=== PATIENT | male | born 1945 | race Caucasian/White ===

== ENCOUNTER 2020-09-24 13:20 | Emergency (ER) | payer MEDICARE ==
[~2020-09-24] VITALS: Ht 185.4 cm; Wt 97.5 kg
[~2020-09-24 13:20] MED LIST: ALEVE220 MG PO; ASPIRIN325 MG PO; ATENOLOL50 MG PO; BUPROPION XL150 MG PO; LANSOPRAZOLE15 MG PO; LEVAQUIN500 MG PO; METFORMIN HCL500 MG PO; PERCOCET 10-321 EACH PO; PERCOCET 5-3251 EACH PO
--- NOTE | 2020-09-24 17:14 | EKG ---
[facility] [address] [facility] [address] [place] [address] Signed Normal sinus rhythm Right bundle branch block Left anterior fascicular block Bifascicular block Anterolateral infarct , age undetermined Abnormal ECG No previous ECGs available Confirmed by MARLYS ARGUETA MD ([id number]) on 09/24/2020 5:14:36 PM Electronically Signed By: MARLYS ARGUETA MD 09/24/20 1714 PATIENT NAME: TIEN ESPINO CRISTY Electrocardiogram DATE OF : 47 PHYSICIAN: MARLYS ARGUETA MD REPORT #: [id number] REPORT IS CONFIDENTIAL AND NOT TO BE RELEASED WITHOUT AUTHORIZATION
== END 2020-09-24 15:08 | disposition left against medical advice (07) ==
LOC: ED 13:20
DX: U07.1 COVID-19 (principal); I10 Essential (primary) hypertension; K21.9 Gastro-esophageal reflux disease without esophagitis; F17.200 Nicotine dependence, unspecified, uncomplicated; Z79.899 Other long term (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; Z79.82 Long term (current) 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; Z79.84 Long term (current) use of oral hypoglycemic drugs
CPT/HCPCS: 71045; 80053; 83605; 84484; 85025; 93005; 93010; 99285-25; C9803; U0003

== ENCOUNTER 2023-03-21 09:31 | Emergency (ER) | payer MEDICARE, OTHER ==
[~2023-03-21] VITALS: Ht 185.4 cm; Wt 97.5 kg
[2023-03-21] MEDS ORDERED: PANTOPRAZOLE SO20 MG PO (09:54)
[2023-03-21 10:00] LABS: HEMATOCRIT 49.3 % (35.0-50.0); HEMOGLOBIN 16.6 g/dL (12.0-18.0); MCH 32.1 (27-36); MCHC 33.8 g/dl (30-36); PLATELET COUNT 263 K/uL (140-440); RBC 5.19 M/ul (4.3-5.7); RDW 12.9 (10.5-15.0)
[2023-03-21 10:21] LABS: ALBUMIN 2.8 g/dL (3.4-5.0); ALBUMIN/GLOBULIN RATIO 0.74 (1.1-2.4); ANION GAP 14.9 (7-21); BILIRUBIN, TOTAL 1.3 ng/dL (0.2-1.0); BUN/CREATININE RATIO 26.31 (6.0-28.6); CALCIUM 9.8 mg/dL (8.5-10.1); CREATININE, SERUM 1.14 mg/dL (0.70-1.30); POTASSIUM 3.9 mmol/L (3.5-5.1); PROTEIN, TOTAL 6.6 g/dL (6.4-8.2)
[2023-03-21 10:28] LABS: LYMPHOCYTES, MANUAL DIFF 12; MONOCYTES, MANUAL DIFF 4; NEUTROPHILS, MANUAL DIFF 84
[2023-03-21 11:14] LABS: BILIRUBIN, URINE NEGATIVE (negative); BLOOD/HGB, URINE LARGE (Negative); KETONE, URINE NEGATIVE (Negative); LEUK ESTERASE, URINE NEGATIVE (negative); NITRITE, URINE NEGATIVE (negative); PH, URINE 5.5 (5-7)
[2023-03-21 11:30] LABS: RED BLOOD CELLS, URINE >50 /hpf (0-5)
[2023-03-21 11:32] LABS: EPITHELIAL CELLS, URINE SQUAMOUS 1+ /lpf (0-1+); REFLEX CULTURE, URINE No (No)
[2023-03-21] MEDS ORDERED: CEFUROXIME500 MG PO (16:46)
[2023-03-21] MEDS ORDERED: FLOMAX0.4 MG PO (16:46)
[2023-03-21 17:20] VITALS: BP 129/72
--- NOTE | 2023-03-22 17:56 | EKG ---
[facility] [address] [place] [address] Signed Atrial fibrillation with a competing junctional pacemaker Right bundle branch block Left anterior fascicular block Bifascicular block Cannot rule out Anterior infarct (cited on or before 24-SEP-2020) Abnormal ECG When compared with ECG of 24-SEP-2020 13:54, Atrial fibrillation has replaced Sinus rhythm Questionable change in initial forces of Anterior leads Confirmed by ANDRES KOLB MD ([id number]) on 03/22/2023 5:55:50 PM Electronically Signed By: ANDRES KOLB 03/22/23 1756 PATIENT NAME: TIEN ESPINO Electrocardiogram DATE OF : 47 PHYSICIAN: ANDRES KOLB REPORT #: [id number] REPORT IS CONFIDENTIAL AND NOT TO BE RELEASED WITHOUT AUTHORIZATION
== END 2023-03-21 17:20 | disposition home or self-care (01) ==
LOC: ED 09:31
PROVIDERS: Emergency Medicine
DX: N32.0 Bladder-neck obstruction (principal); I71.9 Aortic aneurysm of unspecified site, without rupture; I48.20 Chronic atrial fibrillation, unspecified; Z20.822 Contact with and (suspected) exposure to COVID-19; I10 Essential (primary) hypertension; K21.9 Gastro-esophageal reflux disease without esophagitis; M19.90 Unspecified osteoarthritis, unspecified site; F17.200 Nicotine dependence, unspecified, uncomplicated; Z91.030 Bee allergy status; Z79.899 Other long term (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; Z79.82 Long term (current) 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; Z79.84 Long term (current) use of oral hypoglycemic drugs
CPT/HCPCS: 36415; 51702; 51798; 71260; 74177; 80053; 81001; 85025; 93005; 93010; 99285-25; C9803; J0696; J7030; Q9967; U0002

== ENCOUNTER 2023-03-29 21:10 | Emergency (ER) | payer MEDICARE, OTHER ==
[~2023-03-29] VITALS: Ht 185.4 cm; Wt 91.0 kg
[~2023-03-29 21:10] MED LIST changes: +CEFUROXIME500 MG PO; +FLOMAX0.4 MG PO; +PANTOPRAZOLE SO20 MG PO
--- OUTSIDE RECORDS SUMMARY | 2023-03-29 21:43 | XMS ---
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 Aanya has no Care Guidelines for this patient. Karina VISIT COUNT (12 MO.) 2 [facility] TOTAL 2 NOTE: Visits indicate total known visits. 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
[2023-03-29 22:02] LABS: BILIRUBIN, URINE NEGATIVE (negative); BLOOD/HGB, URINE LARGE (Negative); KETONE, URINE NEGATIVE (Negative); LEUK ESTERASE, URINE NEGATIVE (negative); NITRITE, URINE NEGATIVE (negative)
[2023-03-29 22:09] LABS: EPITHELIAL CELLS, URINE SQUAMOUS 1+ /lpf (0-1+)
[2023-03-29 22:11] LABS: BACTERIA, URINE RARE /hpf (negative); CASTS, URINE NONE SEEN \\lpf; CRYSTALS, URINE NONE SEEN (0-1+); RED BLOOD CELLS, URINE >50 /hpf (0-5); REFLEX CULTURE, URINE No (No)
[2023-03-29 22:41] VITALS: BP 124/71
== END 2023-03-29 22:42 | disposition home or self-care (01) ==
LOC: ED 21:10
PROVIDERS: Family Medicine
DX: N40.1 Benign prostatic hyperplasia with lower urinary tract symptoms (principal); R33.8 Other retention of urine; I10 Essential (primary) hypertension; K21.9 Gastro-esophageal reflux disease without esophagitis; M19.90 Unspecified osteoarthritis, unspecified site; E11.9 Type 2 diabetes mellitus without complications; F17.200 Nicotine dependence, unspecified, uncomplicated; Z91.030 Bee allergy status; Z79.899 Other long term (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; Z79.82 Long term (current) 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; Z79.84 Long term (current) use of oral hypoglycemic drugs
CPT/HCPCS: 51702; 81001; 99283-25

== ENCOUNTER 2023-04-30 19:46 | Emergency (ER) | payer MEDICARE, OTHER ==
[~2023-04-30] VITALS: Ht 185.4 cm; Wt 89.4 kg
[2023-04-30 22:06] LABS: BILIRUBIN, URINE POSITIVE (negative); BLOOD/HGB, URINE LARGE (Negative); KETONE, URINE SMALL (Negative); LEUK ESTERASE, URINE MODERATE (negative); NITRITE, URINE POSITIVE (negative)
[2023-04-30 22:11] LABS: CRYSTALS, URINE NONE SEEN (0-1+); EPITHELIAL CELLS, URINE SQUAMOUS 1+ /lpf (0-1+); RED BLOOD CELLS, URINE >50 /hpf (0-5); WHITE BLOOD CELLS, URINE >50 /HPF (0-5)
[2023-04-30 22:12] LABS: BACTERIA, URINE 1+ /hpf (negative); CASTS, URINE NONE SEEN \\lpf; REFLEX CULTURE, URINE Yes (No)
[2023-04-30] MEDS ORDERED: MACROBID 100 M100 MG PO (22:23)
[2023-04-30 22:51] VITALS: BP 133/65
== END 2023-04-30 22:55 | disposition home or self-care (01) ==
LOC: ED 19:46
PROVIDERS: Family Medicine
DX: N39.0 Urinary tract infection, site not specified (principal); T83.011A Breakdown (mechanical) of indwelling urethral catheter, initial encounter; I10 Essential (primary) hypertension; E11.9 Type 2 diabetes mellitus without complications; F17.200 Nicotine dependence, unspecified, uncomplicated; Z91.030 Bee allergy status; Z79.899 Other long term (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; Z79.82 Long term (current) 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
CPT/HCPCS: 81001

== ENCOUNTER 2023-06-22 17:00 | Emergency (ER) | payer OTHER ==
[~2023-06-22] VITALS: Ht 185.4 cm; Wt 89.7 kg
[~2023-06-22 17:00] MED LIST changes: +MACROBID 100 M100 MG PO
[2023-06-22] MEDS ORDERED: SODIUM CHLORIDE 0.9% 1,000 ML IV ONE (17:15)
[2023-06-22] MEDS ORDERED: LIDOCAINE 2% VISCOUS 6 ML SYR TOP ONE (17:30)
[2023-06-22 17:39] LABS: BASOPHILS 0.2 % (0-2); HEMATOCRIT 46.9 % (35.0-50.0); LYMPHOCYTES 3.9 % (24-44); MCH 32.2 (27-36); MCHC 34.1 g/dl (30-36); MCV 94.5 fl (81-99); MONOCYTES 9.4 % (0-12); NEUTROPHILS 86.5 % (39-80); PLATELET COUNT 167 K/uL (140-440); RBC 4.97 M/ul (4.3-5.7); RDW 13.6 (10.5-15.0)
[2023-06-22 17:57] LABS: ALBUMIN 3.2 g/dL (3.4-5.0); ALBUMIN/GLOBULIN RATIO 0.89 (1.1-2.4); BUN/CREATININE RATIO 14.65 (6.0-28.6); CALCIUM 9.5 mg/dL (8.5-10.1); CREATININE, SERUM 1.16 mg/dL (0.70-1.30); PROTEIN, TOTAL 6.8 g/dL (6.4-8.2)
[2023-06-22 18:15] LABS: BILIRUBIN, URINE POSITIVE (negative); BLOOD/HGB, URINE LARGE (Negative); KETONE, URINE NEGATIVE (Negative); LEUK ESTERASE, URINE MODERATE (negative); NITRITE, URINE POSITIVE (negative); PH, URINE 6.5 (5-7)
[2023-06-22 18:19] LABS: INFLUENZA B NAA NEGATIVE (NEGATIVE); RESPIRATORY SYNCYTIAL VIR NAA NEGATIVE (NEGATIVE)
[2023-06-22 18:22] LABS: BACTERIA, URINE RARE /hpf (negative); CASTS, URINE NONE SEEN \\lpf; CRYSTALS, URINE NONE SEEN (0-1+); EPITHELIAL CELLS, URINE 0 /lpf (0-1+); RED BLOOD CELLS, URINE >50 /hpf (0-5); REFLEX CULTURE, URINE No (No)
[2023-06-22 18:23] LABS: COLLECTION TYPE, URINE CATH
[2023-06-22] MEDS ORDERED: FINASTERIDE5 MG PO (18:28)
[2023-06-22] MEDS ORDERED: VITAMIN D3125 MC1 PO (18:29)
[2023-06-22] MEDS ORDERED: PYRIDIUM100 MG PO (18:38)
[2023-06-22] MEDS ORDERED: CEFTRIAXONE/SODIUM CHLORIDE 2 GM/100 ML PIGGYBACK IV ONE (19:15)
[2023-06-22] MEDS ORDERED: CEFDINIR300 MG PO (19:18)
[2023-06-22 20:07] VITALS: BP 122/71
--- NOTE | 2023-06-24 18:46 | EKG ---
[facility] [address] [facility] [place] [address] Signed Normal sinus rhythm with sinus arrhythmia Right bundle branch block Left axis deviation Anterior infarct, present on or before 09/24/2020 Confirmed by Devante Yan M.D. ([id number]) on 06/24/2023 6:46:01 PM Electronically Signed By: DEVANTE YAN 06/24/23 1846 PATIENT NAME: CHRISTINE ESPINOMIKAL MUNIZ Electrocardiogram DATE OF : 47 PHYSICIAN: DEVANTE YAN REPORT #: [id number] REPORT IS CONFIDENTIAL AND NOT TO BE RELEASED WITHOUT AUTHORIZATION
== END 2023-06-22 20:07 | disposition home or self-care (01) ==
LOC: ED 17:00
PROVIDERS: Emergency Medicine
DX: N39.0 Urinary tract infection, site not specified (principal); I10 Essential (primary) hypertension; E11.9 Type 2 diabetes mellitus without complications; K21.9 Gastro-esophageal reflux disease without esophagitis; F41.9 Anxiety disorder, unspecified; F17.200 Nicotine dependence, unspecified, uncomplicated; Z20.822 Contact with and (suspected) exposure to COVID-19; Z79.899 Other long term (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; Z79.82 Long term (current) 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; Z79.84 Long term (current) use of oral hypoglycemic drugs; Z91.030 Bee allergy status; Z96.0 Presence of urogenital implants
CPT/HCPCS: 36415; 51702; 80053; 81001; 84484; 85025; 87088; 87502; 93005; 93010; 99285-25; J0696; J7030; U0002

== ENCOUNTER 2023-09-20 13:45 | Emergency (ER) | payer OTHER, MEDICARE ==
[~2023-09-20] VITALS: Ht 185.4 cm; Wt 84.9 kg
[~2023-09-20 13:45] MED LIST changes: +CEFDINIR300 MG PO; +FINASTERIDE5 MG PO; +PYRIDIUM100 MG PO; +VITAMIN D3125 MC1 PO
[2023-09-20 15:25] LABS: BILIRUBIN, URINE NEGATIVE (negative); BLOOD/HGB, URINE SMALL (Negative); KETONE, URINE NEGATIVE (Negative); LEUK ESTERASE, URINE SMALL (negative); NITRITE, URINE POSITIVE (negative); PH, URINE 6.5 (5-7)
[2023-09-20 15:31] LABS: BASOPHILS 0.4 % (0-2); EOSINOPHILS 2.1 % (0-6); HEMOGLOBIN 14.1 g/dL (12.0-18.0); MCH 31.5 (27-36); MCHC 33.6 g/dl (30-36); MCV 93.8 fl (81-99); MONOCYTES 7.9 % (0-12); NEUTROPHILS 65.6 % (39-80); PLATELET COUNT 226 K/uL (140-440); RBC 4.47 M/ul (4.3-5.7); RDW 14.1 (10.5-15.0)
[2023-09-20 15:34] LABS: EPITHELIAL CELLS, URINE NONE SEEN /lpf (0-1+)
[2023-09-20 15:35] LABS: BACTERIA, URINE 1+ /hpf (negative); CASTS, URINE NONE SEEN \\lpf; COLLECTION TYPE, URINE CLEAN CATCH; CRYSTALS, URINE CALCIUM OXALATE 3+ (0-1+); REFLEX CULTURE, URINE Yes (No)
[2023-09-20 15:45] LABS: ALBUMIN 3.1 g/dL (3.4-5.0); ALBUMIN/GLOBULIN RATIO 1.03 (1.1-2.4); ANION GAP 11.9 (7-21); BILIRUBIN, TOTAL 0.3 ng/dL (0.2-1.0); BUN/CREATININE RATIO 14.85 (6.0-28.6); CALCIUM 9.1 mg/dL (8.5-10.1); CREATININE, SERUM 1.01 mg/dL (0.70-1.30); POTASSIUM 3.9 mmol/L (3.5-5.1); PROTEIN, TOTAL 6.1 g/dL (6.4-8.2)
[2023-09-20 16:25] VITALS: BP 127/87
== END 2023-09-20 16:23 | disposition home or self-care (01) ==
LOC: ED 13:45
PROVIDERS: Emergency Medicine
DX: N48.89 Other specified disorders of penis (principal); R10.30 Lower abdominal pain, unspecified; Z96.0 Presence of urogenital implants; I10 Essential (primary) hypertension; K21.9 Gastro-esophageal reflux disease without esophagitis; E11.9 Type 2 diabetes mellitus without complications; M19.90 Unspecified osteoarthritis, unspecified site; Z91.030 Bee allergy status; Z79.899 Other long term (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; Z79.82 Long term (current) 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; Z79.84 Long term (current) use of oral hypoglycemic drugs
CPT/HCPCS: 36415; 80053; 81001; 85025; 99283

== ENCOUNTER 2023-11-22 10:09 | Emergency (ER) | payer OTHER ==
[~2023-11-22] VITALS: Ht 185.4 cm; Wt 84.0 kg
[2023-11-22 10:28] LABS: BASOPHILS 0.6 % (0-2); EOSINOPHILS 7.9 % (0-6); HEMATOCRIT 41.2 % (35.0-50.0); HEMOGLOBIN 14.1 g/dL (12.0-18.0); LYMPHOCYTES 9.6 % (24-44); MCH 31.8 (27-36); MCHC 34.3 g/dl (30-36); MCV 92.9 fl (81-99); MONOCYTES 9.1 % (0-12); NEUTROPHILS 72.8 % (39-80); PLATELET COUNT 235 K/uL (140-440); RBC 4.44 M/ul (4.3-5.7); RDW 12.7 (10.5-15.0)
[2023-11-22 10:47] LABS: ALBUMIN 2.9 g/dL (3.4-5.0); ALBUMIN/GLOBULIN RATIO 0.85 (1.1-2.4); ALCOHOL, MEDICAL <3 ng/dL (<3); ALKALINE PHOSPHATASE 43 U/L (46-116); ALT (SGPT) 10 U/L (14-59); ANION GAP 13.2 (7-21); AST (SGOT) 7 U/L (15-37); BILIRUBIN, TOTAL 0.7 ng/dL (0.2-1.0); CALCIUM 9.4 mg/dL (8.5-10.1); CARBON DIOXIDE 26 mmol/L (21-32); CHLORIDE 103 mmol/L (98-107); CREATININE, SERUM 0.97 mg/dL (0.70-1.30); GLOMERULAR FILTRATION RATE,EST 80 mL/min (>60); POTASSIUM 4.2 mmol/L (3.5-5.1); PROTEIN, TOTAL 6.3 g/dL (6.4-8.2); UREA NITROGEN 13 mg/dL (7-18)
[2023-11-22 10:49] LABS: MAGNESIUM 1.9 mg/dL (1.8-2.4)
[2023-11-22 10:58] LABS: BILIRUBIN, URINE POSITIVE (negative); BLOOD/HGB, URINE SMALL (Negative); KETONE, URINE TRACE (Negative); LEUK ESTERASE, URINE LARGE (negative); NITRITE, URINE POSITIVE (negative)
[2023-11-22 11:15] LABS: BACTERIA, URINE 1+ /hpf (negative); CASTS, URINE NONE SEEN \\lpf; COLLECTION TYPE, URINE CLEAN CATCH; CRYSTALS, URINE AMORPHOUS PHOSPH 1+ (0-1+); EPITHELIAL CELLS, URINE SQUAMOUS 1+ /lpf (0-1+); REFLEX CULTURE, URINE Yes (No); WHITE BLOOD CELLS, URINE 41-50 /HPF (0-5)
[2023-11-22 11:17] LABS: AMPHETAMINES, URINE NEGATIVE (NEGATIVE); BENZODIAZEPINE, URINE NEGATIVE (NEGATIVE); BUPRENORPHINE, URINE NEGATIVE (NEGATIVE); COCAINE, URINE NEGATIVE (NEGATIVE); ECSTASY, URINE NEGATIVE (NEGATIVE); METHADONE, URINE NEGATIVE (NEGATIVE)
[2023-11-22 11:45] LABS: BARBITURATES, URINE NEGATIVE (NEGATIVE); CANNABINOID, URINE NEGATIVE (NEGATIVE); FENTANYL, URINE NEGATIVE (NEGATIVE); OPIATES, URINE NEGATIVE (NEGATIVE); OXYCODONE, URINE NEGATIVE (NEGATIVE); PHENCYCLIDINE, URINE NEGATIVE (NEGATIVE)
[2023-11-22 14:20] VITALS: BP 102/70
--- NOTE | 2023-11-24 23:12 | EKG ---
[facility] [address] [place] [address] Signed Sinus bradycardia Right bundle branch block Left anterior fascicular block Bifascicular block Possible Anterolateral infarct (cited on or before 22-NOV-2023) Abnormal ECG When compared with ECG of 22-JUN-2023 17:30, Vent. rate has decreased BY 37 BPM Serial changes of Anterior infarct present Confirmed by Ashley Mane MD () on 11/24/2023 11:12:32 PM Electronically Signed By: ASHLEY MANE MD 11/24/23 2312 PATIENT NAME: TIEN ESPINO Electrocardiogram DATE OF : 47 PHYSICIAN: ASHLEY MANE MD REPORT #: [id number] REPORT IS CONFIDENTIAL AND NOT TO BE RELEASED WITHOUT AUTHORIZATION
[2023-12-10] MEDS ORDERED: VITAMIN D350 MCG PO (11:22)
[2023-12-10] MEDS ORDERED: CIPRO500 MG PO (12:09)
[2023-12-10] MEDS ORDERED: VIAGRA100 MG PO (12:10)
[2023-12-10] MEDS ORDERED: LO-DOSE ASPIRIN81 MG PO (12:11)
[2023-12-10] MEDS ORDERED: FLOMAX0.4 MG PO (12:11)
[2023-12-10] MEDS ORDERED: OXYBUTYNIN CHLO10 MG PO (12:11)
[2023-12-10] MEDS ORDERED: PHENAZOPYRIDIN100 MG PO (12:12)
[2023-12-10] MEDS ORDERED: PANTOPRAZOLE SO40 MG PO (12:12)
[2023-12-10] MEDS ORDERED: METFORMIN HCL500 M2 PO (12:13)
[2023-12-10] MEDS ORDERED: PROSCAR5 MG PO (12:14)
== END 2023-11-22 14:20 | disposition home or self-care (01) ==
LOC: ED 10:09
PROVIDERS: Emergency Medicine
DX: R55 Syncope and collapse (principal); I10 Essential (primary) hypertension; K21.9 Gastro-esophageal reflux disease without esophagitis; E11.9 Type 2 diabetes mellitus without complications; I48.91 Unspecified atrial fibrillation; F17.200 Nicotine dependence, unspecified, uncomplicated; Z79.84 Long term (current) use of oral hypoglycemic drugs; Z79.82 Long term (current) 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; Z79.899 Other long term (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; Z91.038 Other insect allergy status
CPT/HCPCS: 36415; 70450; 71045; 72125; 80053; 80307; 81001; 83735; 84484; 85025; 87088; 87186; 99285; G0480

== ENCOUNTER 2023-11-27 12:23 | Inpatient (IN) | payer OTHER, MEDICARE ==
[~2023-11-27] VITALS: Ht 185.4 cm; Wt 83.0 kg
--- OUTSIDE RECORDS SUMMARY | 2023-11-27 12:30 | XMS ---
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 Anaya has no Care Guidelines for this patient. Karina [facility] MO[facility] NOTE: Visits indicate total known visits. ED/C VISIT TRACKING (12 MO.) 11/27/2023 12:23 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 - halfway (current) use of oral hypoglycemic drugs - Nicotine dependence, unspecified, uncomplicated - Other insect allergy status - Other care home (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 - Syncope and collapse - Type 2 diabetes mellitus without complications - Unspecified atrial fibrillation 09/20/2023 13:47 [facility] [place] TYPE: Emergency COMPLAINT: - CATHETER ISSUE DIAGNOSES: - Bee allergy status - Essential (primary) hypertension - Gastro-esophageal reflux disease without esophagitis - 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 - halfway (current) use of oral hypoglycemic drugs - Lower abdominal pain, unspecified - Other ferry terminal agent (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 - Other specified disorders of penis - Presence of urogenital implants - Type 2 diabetes mellitus without complications - Unspecified osteoarthritis, unspecified site 06/22/2023 17:01 [facility] [place] TYPE: Emergency COMPLAINT: - WEAKNESS DIAGNOSES: - Anxiety disorder, unspecified - Bee allergy status - Contact with and (suspected) exposure to COVID-19 - Essential (primary) hypertension - Gastro-esophageal reflux disease without esophagitis - halfway (current) 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 - 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 - Nicotine dependence, unspecified, uncomplicated - Other ferry terminal agent (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 - Presence of urogenital implants - Type 2 diabetes mellitus without complications - Urinary tract infection, site not specified - Weakness 04/30/2023 19:47 [facility] [place] TYPE: Emergency COMPLAINT: - GENTAL PAIN DIAGNOSES: - Bee allergy status - Breakdown (mechanical) of indwelling urethral catheter, initial encounter - Essential (primary) hypertension - halfway (current) 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 - Nicotine dependence, unspecified, uncomplicated - Other ferry terminal agent (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 - Type 2 diabetes mellitus without complications - Urethral disorder, unspecified - Urinary tract infection, site not specified 03/29/2023 21:11 [facility] [place] TYPE: Emergency COMPLAINT: - URINE PROBLEM DIAGNOSES: - Bee allergy status - Benign prostatic hyperplasia with lower urinary tract symptoms - Essential (primary) hypertension - Gastro-esophageal reflux disease without esophagitis - 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 - halfway (current) use of oral hypoglycemic drugs - Nicotine dependence, unspecified, uncomplicated - Other ferry terminal agent (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 - Other retention of urine - Type 2 diabetes mellitus without complications - Unspecified osteoarthritis, unspecified site 03/21/2023 09:33 [facility] [place] TYPE: Emergency COMPLAINT: - POSS UTI, WEAKNESS DIAGNOSES: - Aortic aneurysm of unspecified site, without rupture - Bee allergy status - Bladder-neck obstruction - Chronic atrial fibrillation, unspecified - Contact with and (suspected) exposure to COVID-19 - Dysuria - Essential (primary) hypertension - Gastro-esophageal reflux disease without esophagitis - 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
[2023-11-27] MEDS ORDERED: NITROFURANTOIN100 M1 PO (12:50)
[2023-11-27 12:54] LABS: BASOPHILS 0.8 % (0-2); EOSINOPHILS 2.7 % (0-6); HEMATOCRIT 42.5 % (35.0-50.0); HEMOGLOBIN 14.5 g/dL (12.0-18.0); LYMPHOCYTES 18.5 % (24-44); MCH 31.3 (27-36); MCHC 34.1 g/dl (30-36); MCV 91.7 fl (81-99); MONOCYTES 8.4 % (0-12); NEUTROPHILS 69.6 % (39-80); PLATELET COUNT 281 K/uL (140-440); RBC 4.64 M/ul (4.3-5.7); RDW 12.6 (10.5-15.0)
[2023-11-27] MEDS ORDERED: SODIUM CHLORIDE 0.9% 1,000 ML IV PRN (13:00)
[2023-11-27 13:13] LABS: ALBUMIN 3.1 g/dL (3.4-5.0); ALBUMIN/GLOBULIN RATIO 0.91 (1.1-2.4); ANION GAP 12.9 (7-21); BILIRUBIN, TOTAL 0.4 ng/dL (0.2-1.0); BUN/CREATININE RATIO 14.73 (6.0-28.6); CALCIUM 9.5 mg/dL (8.5-10.1); CREATININE, SERUM 0.95 mg/dL (0.70-1.30); MAGNESIUM 1.8 mg/dL (1.8-2.4); POTASSIUM 3.9 mmol/L (3.5-5.1); PROTEIN, TOTAL 6.5 g/dL (6.4-8.2)
[2023-11-27 13:35] LABS: BILIRUBIN, URINE NEGATIVE (negative); BLOOD/HGB, URINE SMALL (Negative); KETONE, URINE NEGATIVE (Negative); LEUK ESTERASE, URINE LARGE (negative)
[2023-11-27] MEDS ORDERED: MEROPENEM 1,000 MG in SODIUM CHLORIDE 0.9% 100 ML IV ONE (13:45)
[2023-11-27 13:55] LABS: WHITE BLOOD CELLS, URINE 21-40 /HPF (0-5)
[2023-11-27 13:56] LABS: BACTERIA, URINE 1+ /hpf (negative); CASTS, URINE NONE SEEN \\lpf; COLLECTION TYPE, URINE CLEAN CATCH; CRYSTALS, URINE NONE SEEN (0-1+); EPITHELIAL CELLS, URINE SQUAMOUS 1+ /lpf (0-1+); REFLEX CULTURE, URINE Yes (No)
[2023-11-27] MEDS ORDERED: LIDOCAINE 2% VISCOUS 6 ML SYR TOP ONE (14:00)
[2023-11-27] MEDS ORDERED: NICOTINE 14 MG/24 HR 1 EA TDSY TD ONE (15:00)
[2023-11-27] MEDS ORDERED: PHARMACY RENAL DOSE ADJUSTMENT 1 DOSE MISC PO SCH (15:44)
[2023-11-27] MEDS ORDERED: DEXAMETHASONE SOD PHOS 4 MG/ML VIAL ONE (16:26)
[2023-11-27] MEDS ORDERED: propofoL 200 MG/20 ML VIAL ONE (16:26)
[2023-11-27] MEDS ORDERED: KETOROLAC TROMETHAMINE 30 MG/ML VIAL ONE (16:26)
[2023-11-27] MEDS ORDERED: fentaNYL citrate 100 MCG/2 ML VIAL ONE (16:26)
[2023-11-27] MEDS ORDERED: METOCLOPRAMIDE HCL 10 MG/2 ML SDV ONE (16:26)
[2023-11-27] MEDS ORDERED: FAMOTIDINE 20 MG/ 2 ML VIAL ONE (16:26)
[2023-11-27] MEDS ORDERED: LACTATED RINGER'S 1,000 ML IV ONE (16:26)
[2023-11-27] MEDS ORDERED: MIDAZOLAM HCL 2 MG/2 ML VIAL ONE (16:26)
[2023-11-27] MEDS ORDERED: ondansetron HCL 4 MG/2 ML VIAL ONE (16:26)
[2023-11-27] MEDS ORDERED: iopamidoL 30 ML VIAL ONE (16:50)
[2023-11-27] MEDS ORDERED: IBLOOD GLUCOSE TEST STRIP 1 EA TEST VI PRN (17:30)
[2023-11-27] MEDS ORDERED: NALOXONE HCL 0.4 MG SYR IV PRN (17:30)
[2023-11-27] MEDS ORDERED: MEPERIDINE HCL 25 MG/1 ML VIAL IV PRN (17:30)
[2023-11-27] MEDS ORDERED: droPERidol 5 MG/2 ML VIAL IV PRN (17:30)
[2023-11-27] MEDS ORDERED: fentaNYL citrate 50 MCG/ML SDV IV PRN (17:30)
[2023-11-27] MEDS ORDERED: PROCHLORPERAZINE EDISYLATE 10 MG/2 ML VIAL IV PRN (17:30)
[2023-11-27] MEDS ORDERED: ondansetron HCL 4 MG/2 ML VIAL IV PRN ×2 (17:30→23:30)
[2023-11-27] MEDS ORDERED: METOCLOPRAMIDE HCL 10 MG/2 ML SDV IV PRN (17:30)
[2023-11-27] MEDS ORDERED: FLUORESCEIN SODIUM 500 MG/5 ML ML ONE (17:48)
[2023-11-27] MEDS ORDERED: METOPROLOL TARTRATE 5 MG/5 ML VIAL ONE (17:51)
[2023-11-27] MEDS ORDERED: LABETALOL HCL 20 MG/4 ML VIAL ONE (18:08)
--- NOTE | 2023-11-27 18:43 | NUR ---
11/27/23 184 Bridget Saldana 1825 PT ARRIVED TO PACU ON 10L VIA MASK, RESP EVEN AND UNLABORED. PT REACTIVBE TO PAINFUL STIMULI. A-FIB NOTED AND BASELINE FOR PT. SMALL AMOUNT OF RED DRAINAGE NOTED AROUND MENDEZ INSERTION SITE. 182 O2 DECREASED TO 6L. 183 CBG 114 183 PT WOKE AND STARTS REACHING UP FOR HIS FACE, PT WAKES TO VERBAL STIMULI AND DENIES PAIN AND NAUSEA. RN REORIENTS PT TO PACU. 184 PT RESTING WITH NO CONCERNS AND SMALL AMOUNT OF SNORING NOTED. O2 SAT 92-94%.
--- NOTE | 2023-11-27 18:55 | NUR ---
PATIENT TO ROOM 107 FROM PACU VIA BED. REPORT RECEIVED FROM NIKO MALDONADO IN THE ED AT 1653. REPORT RECEIVED FROM CARBON GRINDER, TAMMIE Zamarripa PATIENT AND SPOUSE ORIENTED TO ROOM AND CALL LIGHT FUNCTIONS.
[2023-11-27 19:03] VITALS: BP 134/65
--- NOTE | 2023-11-27 19:32 | NUR ---
REPORT RECIEVED FROM DAY SHIFT RN. PATIENT RESTING IN BED. CPOX PLACED. FRESH COFFEE PROVIDED. NO FURTHER NEEDS. CALL LIGHT IN REACH.
--- NOTE | 2023-11-27 20:32 | NUR ---
IN ROOM TO COMPLETE ADMISSION. pt ANXIOUS STATES "I FEEL ANTSY". NON-SLIP SOCKS APPLIED. SBA TO STAND AT SIDE OF BED. pt STATES FEELS THE NEED TO VOID, EDUCATED ON MENDEZ CATHER, BAG DRAINING CONCENTRATED URINE. pt LIES DOWN AND GETS BACK UP SEVERAL TIMES, STATES WANTING TO GO HOME. SIGNIFICANT OTHER IN ROOM, ASSISTS WITH ADMISSION QUESTIONS. PHONE CALL TO DR. WOODS, VOICEMAIL LEFT.
--- NOTE | 2023-11-27 20:58 | NUR ---
PHONE CALL TO MD, NEW ORDERS RECEIVED AND REPEATED BACK TO VERIFY.
[2023-11-27] MEDS ORDERED: ACETAMINOPHEN 500 MG TAB PO PRN (21:00)
[2023-11-27] MEDS ORDERED: MORPHINE SULFATE 4 MG/ML VIAL IV PRN (21:00)
[2023-11-27] MEDS ORDERED: SODIUM CHLORIDE 0.9% 1,000 ML IV SCH (21:00)
[2023-11-27] MEDS ORDERED: LORazepam 0.5 MG TAB PO PRN (21:00)
--- NOTE | 2023-11-27 21:00 | NUR ---
MD WOODS CALLED FLOOR, THIS RN TO ANSWER. NEW ORDERS RECIEVED. VERFIED USING REPEAT BACK METHOD.
[2023-11-27 21:18] VITALS: BP 133/58
[2023-11-27 21:54] VITALS: BP 133/58
--- NOTE | 2023-11-27 21:56 | NUR ---
PATIENT RESTING IN CHAIR. PRN MEDICATION ADMINISTERED. SCHEDULED IV FLUID AND ABX INFUSINF PER ORDER. VS AND I&Os OBTAINED AND RECORDEED. IV FLUSHED WNL. MENDEZ CATH CARE PROVIDED PER ORDER. ASESSMENT COMPLETE. BLOOD NOTED IN CATHETER BAG. PATIENT DENIES NEEDS AT THIS TIME. PATIENT DENIES PAIN. CALL LIGHT IN REACH.
[2023-11-27] MEDS ORDERED: MEROPENEM 2,000 MG in SODIUM CHLORIDE 0.9% 100 ML IV SCH (22:00)
[2023-11-27] MEDS ORDERED: diphenhydrAMINE HCL 50 MG/ML VIAL IV PRN (23:30)
--- NOTE | 2023-11-27 23:30 | NUR ---
PATIENT RESTING IN BED WITH EYES CLOSED. REPIRATIONS EVEN AND UNLABORED. CALL LIGHT IN REACH.
[2023-11-27] MEDS ORDERED: GLUCAGON,HUMAN RECOMBINANT 1 MG/ML VIAL SUB-Q PRN (23:45)
[2023-11-27] MEDS ORDERED: DEXTROSE 5% 1,000 ML IV PRN (23:45)
[2023-11-27] MEDS ORDERED: IBLOOD GLUCOSE TEST STRIP 1 EA TEST XX PRN (23:45)
[2023-11-27] MEDS ORDERED: DEXTROSE 50% 50 ML SYR IV PRN ×2 (23:45)
[2023-11-28] VITALS (8 sets, daily range): BP systolic 117–138; BP diastolic 59–77
--- NOTE | 2023-11-28 01:05 | NUR ---
PATIENT RESTING IN BED ON BACK WITH EYES CLOSED. RESPIRATIONS EVEN AND UNLABORED. CALL LIGHT IN REACH.
--- NOTE | 2023-11-28 02:12 | NUR ---
PATIENT RESTING IN BED WITH EYES CLOSED. RESPIRATIONS EVEN AND UNLABORED. VS AND I&Os OBTAINED AND RECORDED. PATIENT URINE A LIGHT PINK COLOR. NO FURTHER NEEDS AT THIS TIME. CALL LIGHT IN REACH.
--- NOTE | 2023-11-28 03:31 | NUR ---
PATIENT RESTING IN BED ON BACK WITH EYES CLOSED. RESPIRATIONS EVEN AND UNLABORED. CALL LIGHT IN REACH.
[2023-11-28 05:53] LABS: BASOPHILS 0.4 % (0-2); EOSINOPHILS 0.1 % (0-6); HEMATOCRIT 43.9 % (35.0-50.0); HEMOGLOBIN 14.7 g/dL (12.0-18.0); LYMPHOCYTES 7.3 % (24-44); MCH 31.1 (27-36); MCHC 33.5 g/dl (30-36); MCV 92.9 fl (81-99); NEUTROPHILS 88.2 % (39-80); PLATELET COUNT 267 K/uL (140-440); RBC 4.73 M/ul (4.3-5.7); RDW 12.8 (10.5-15.0)
[2023-11-28 06:03] LABS: ANION GAP 12.4 (7-21); BUN/CREATININE RATIO 13.46 (6.0-28.6); CALCIUM 9.6 mg/dL (8.5-10.1); CREATININE, SERUM 1.04 mg/dL (0.70-1.30); MAGNESIUM 1.9 mg/dL (1.8-2.4); POTASSIUM 4.4 mmol/L (3.5-5.1)
--- NOTE | 2023-11-28 06:04 | NUR ---
PATIENT RESTING IN BED. SCHEDULED IV ABX INFUSING PER ORDER. PATIENT DENIES PAIN AT THIS TIME. PRN ANXIETY MEDICATION ADMINSTERED PER PATIENT REQUEST. FRESH WATER AND COFFEE PROVIDED. BED ALARM ON FOR SAFETY. NO FURTHER NEEDS. CALL LIGHT IN REACH.
--- NOTE | 2023-11-28 07:54 | NUR ---
SHIFT CHANGE REPORT RECEIVED FROM NIKO QUINTANILLA. PATIENT SET OFF BED ALARM. IMPULSIVE AND IRRITATED AT NURSING STAFF HE WANTS TO BE INDEPENDANT. REMINDED TO USE CALL LIGHT SO WE CAN HELP MANAGE IV TUBING AND CATHETER LINES. ASSISTED TO CHAIR, CHAIR ALARM ON. SO AT BEDSIDE.
[2023-11-28] MEDS ORDERED: IBLOOD GLUCOSE TEST STRIP 1 EA TEST VI SCH (08:00)
[2023-11-28] MEDS ORDERED: INSULIN LISPRO 100 UNIT/ML ML SUB-Q SCH (08:00)
--- NOTE | 2023-11-28 08:10 | NUR ---
UR CLINICAL REVIEW: [facility] INPATIENT CRITERIA WPS SERENA NAIR INPT 11/27/23 @ 1541 ORDER MATCHES REG NO AUTH REQUIRED PER [facility]/MEDICARE GUIDELINES DISCHARGE TO HOME WHEN STABLE 12/01/23
--- NOTE | 2023-11-28 08:14 | NUR ---
PATIENT IN CHAIR AT THIS TIME. BLOOD SUGAR TAKEN AND CHARTED. CALL LIGHT WITHIN REACH, NO FURTHER NEEDS AT THIS TIME.
--- NOTE | 2023-11-28 09:15 | NUR ---
PATIENT RESTING IN BED. UPDATED ON POC. CALL LIGHT IN REACH. BED LOW IN LOWEST POSITION, LOCKED AND EXIT ALARM ON.
--- NOTE | 2023-11-28 10:01 | NUR ---
PATIENT IN BED AT THIS TIME. VITALS AND I&O'S CHARTED. CALL LIGHT WITHIN REACH, NO FURTHER NEEDS AT THIS TIME.
--- NOTE | 2023-11-28 10:43 | NUR ---
PATIENT ALERT AND ORIENTED, SITTING UP IN BED. DEMOGRAPHICS VERIFIED WITH PATIENT. LIVES IN A HOUSE WITH FRIEND, ANA. STATES THERE ARE STAIRS TO GET INSIDE AND STAIRS TO THE BASEMENT, HE HAS NO ISSUES WITH STAIRS AT BASELINE. NO DME. STATES HE REMAINS ABLE TO DRIVE. DENIES FINANCIAL ISSUES WELL. DOES NOT BELIEVE HE ANY NEEDS AT HOME. PLANS TO RETURN TO HOME AT [place].
--- NOTE | 2023-11-28 12:13 | NUR ---
PATIENT RESTING IN BED. DENIES NEEDS OR CONCERNS. IVF INFUSING WITHOUT DIFFICULTY. CATHETER REMAINS PATENT AND DRAINING CLEAR YELLOW URINE. CALL LIGHT IN REACH, BED IN LOWEST POSITION AND LOCKED. BED ALARM ON. PATIENT PLEASANTLY CHATTING HOWEVER, ASKS REPEATED QUESTIONS OR REPEATS WHAT HE WAS PREVIOUSLY DISCUSSING.
--- NOTE | 2023-11-28 13:12 | NUR ---
VISITED DURING SPIRITUAL CARE ROUNDS. PT EXPRESSED DESIRE TO GO HOME, REQUESTED PRAYER. PROVIDED SUPPORTIVE PRESENCE, HOSPITALITY, PRAYER. PT EXPRESSED GRATITUDE.
[2023-11-28] MEDS ORDERED: MEROPENEM 500 MG in SODIUM CHLORIDE 0.9% 100 ML IV SCH (14:00)
[2023-11-28] MEDS ORDERED: NICOTINE 21 MG/24 HR 1 EA TDSY TD SCH (14:57)
--- NOTE | 2023-11-28 15:04 | NUR ---
PATIENT REQUESTS TO BE SENT HOME FOR OUTPATIENT INFUSIONS. PATIENT REPORTS HE WOULD LIKE TO "SIGN MYSELF OUT". PROVIDER NOTIFIED. SENIOR BILLING CONSULTANT SAT WITH PATIENT AT LENGTH DISCUSSING PLAN OF CARE, INFECTIOUS PROCESS AND MONITORING WELL PROVIDE EDUCATION ON IV ABX. DURING THIS TIME, PATIENT CONTINUED TO ASK THE SAME QUESTIONS REPEATEDLY, SEEMINGLY FORGETTING THAT WE HAD JUST DISCUSSED THE SAME QUESTIONS. NICOTENE PATCH ORDERED. IV ABX INFUSING. PATIENT IS UP IN CHAIR WITH ALARM ON AND CALL LIGHT IN REACH. PATIENT REPORTS HE WILL DISCUSS STAYING WITH HIS SOANA WHEN SHE COMES TO VISIT.
--- NOTE | 2023-11-28 15:22 | NUR ---
PATIENT IN CHAIR AT THIS TIME. SUPPLIER RELATIONSHIP DIRECTOR CHANGED LINENS AND PROVIDED A WAFFLE MATTRESS FOR PATIENTS BED. CALL LIGHT WITHIN REACH, NO FURTHER NEEDS AT THIS TIME.
--- NOTE | 2023-11-28 16:55 | NUR ---
PATIENT SITTING UP IN BED AWAITNG SUPPER. DENIES NEEDS. BED ALARM ON. CALL LIGHT IN REACH.
--- NOTE | 2023-11-28 17:49 | NUR ---
PT RESTING IN BED. VITALS AND IS AND OS COMPLETE. PT MENDEZ EMPTIED. ICE WATER REFRESHED. PTS VISITOR ANA NOW IN ROOM. PT DENIES ANY NEEDS. CALL LIGHT IN REACH
--- NOTE | 2023-11-28 19:43 | NUR ---
REPORT RECIEVED FROM DAY SHIFT RN. PATIENT RESTING IN BED AND DENIES NEEDS AT THIS TIME. CALL LIGHT IN REACH.
--- NOTE | 2023-11-28 20:31 | NUR ---
PT ATTEMPED TO USE THE BATHROOM ON HIS OWN. WHEN STAFF CAME IN TO ASSIST, PT STATED THAT HE COULD DO IT AND WHEN HE WAS DONE, HE WOULD BE GETTING DRESSED ON LEAVING. STAFF GOT HIM SETTLED BACK IN BED WHEN HE WAS DONE IN THE BATHROOM. STAFF GAVE HIM A COFFEE, AND HE SEEMED TO HAVE CALMED DOWN.
--- NOTE | 2023-11-28 21:00 | NUR ---
PATIENT RESTING IN BED APPEARING ANXIOUS. BS OBTAINED AND RECORDED. BS WNL. PATIENT REQUESTING FOOD, SANDWICH BOX PROVIDED. PRN ANXIETY MEDICATION ADMINISTERED PER PATIENT REQUEST. VS AND I&Os OBTAINED AND RECORDED. PATIENT AND SIGNIFICANT OTHER IN ROOM, REQUESTING COFFEE. FRESH COFFEE PROVIDED. PATIENT HAS NO FURTHER NEEDS AT THIS TIME. CALL LIGHT IN REACH.
[2023-11-28] MEDS ORDERED: MEROPENEM 2,000 MG in SODIUM CHLORIDE 0.9% 250 ML IV SCH (22:00)
--- NOTE | 2023-11-28 22:23 | NUR ---
SCHEDULED ABX INFUSING PER ORDER. PRN MEDICATION ADMINISTERED PER PATIENT REQUEST. PATIENT HAS NO FURTHER NEEDS. CALL LIGHT IN REACH.
--- NOTE | 2023-11-28 23:56 | NUR ---
NIO BOWEL MEDICATION ORDERED PER PATIENT REQUEST.
[2023-11-29] VITALS (8 sets, daily range): BP systolic 125–161; BP diastolic 69–75
--- NOTE | 2023-11-29 00:40 | NUR ---
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 BELIEVES THIS RN TO BE A HARBOR ENGINEER. ATTEMPTING TO REDIRECT HIM, BUT KEEPS GOING BACK TO WHY HE WAS BEING ARRESTED. HE ATTEMPTED TO CALL HIS ; LEFT A MESSAGE. IN VIEW OF NURSES STATION, LIGHTS ON, HE IS SITTING ON EDGE OF BED WITH DECAF COFFEE IN FRONT OF HIM. PT STILL BELIEVES HE IS UNDER ARREST.
--- NOTE | 2023-11-29 01:12 | NUR ---
NEW BAG IV FLUID INFUSING PER ORDER. SARAI RAMIRES REMAINS IN ROOM WITH PATIENT.
--- NOTE | 2023-11-29 01:40 | NUR ---
CNAS ASSISITED PT BACK INTO GOWN AND ASSISTED HIM TO THE CHAIR. CHAIR ALARM ON. DATABASE OPERATOR BROUGHT PT A DECAF COFFEE REQUESTED BY PT. PT STATES NO FURHTER NEEDS AT THIS TIME. CALL LIGHT WITHIN REACH AND CHAIR ALARM ON.
--- NOTE | 2023-11-29 02:59 | NUR ---
PATIENT SITTING IN CHAIR WITH CONTINUOUS PROCESS ROTARY DRUM TANNER IN ROOM. PATIENT APPEARS AGITATED AND RESTLESS. PRN ANXIETY MEDICATION ADMISNITERED.
--- NOTE | 2023-11-29 04:14 | NUR ---
PATIENT RESTING IN BED WITH EYES CLOSED. RESPIRATIONS EVEN AND UNLABORED. CALL LIGHT IN REACH.
--- NOTE | 2023-11-29 06:40 | NUR ---
SCHEDULED IV ABX INFUSING PER ORDER. VS AND I&Os OBTAINED AND RECORDED. PATIENT BED ALARM GOING OFF. PATIENT ATTEMPTING TO GET OUT OF BED. PATIENT STATES "I NEED TO GO TO THE POLICE STATION". PATIENT INSISTANT ON LEAVING THE HOSPITAL. PATIENT STATES "I HAVE BEEN ACCUSED OF STEALING AND NEED TO GO TO THE POLICE STATION". ACCURACY EXPERT REMAINS IN ROOM 1:1. PATIENT SLEPT FROM 0330 TILL HIS BED ALARMING WENT OFF.
--- NOTE | 2023-11-29 07:10 | NUR ---
REPORT RECIEVED FROM NIKO QUINTANILLA. PT SITTING UP ON EDGE OF BED. SITTER IN ROOM. PT TALKING TO SITTER. BED ALARM ON. IV FLUIDS INFUSING WNL. NO NEEDS IDENTIFIED AT THIS TIME. CALL LIGHT IN REACH. BED ALARM ON.
--- NOTE | 2023-11-29 07:58 | NUR ---
IN NOISE HEARD FROM ROOM. PT NOTED TO BE ATTEMPTING TO GET OUT OF BED. PT REPORTING TOILETING NEEDS. SBA WITH FWW FROM BED TO RESTROOM. PT ASKING TO "GET DRESSED TO GO OUTSIDE AND SMOKE A CIGARETTE, I KNOW I CANNOT DO IT IN HERE." INFORMED PT THERE IS NO ONE TO GO OUTSIDE WITH PT AT THIS TIME. ALSO INFORMED PT THAT WHEN THIS RN BRINGS MORNING MEDICATIONS IN THIS RN WILL BRING NICOTINE PATCH. PT USES RESTROOM. PT STATES "OKAY I AM DONE. FALSE ALARM, IT WAS JUST GAS." SBA WITH FWW BACK TO BED. BREAKFAST TRAY PROVIDED. PT DENIES ANY OTHER NEEDS AT THIS TIME. CALL LIGHT IN REACH. BED ALARM ON. SIDE RAILS UP FOR SAFTEY.
[2023-11-29] MEDS ORDERED: SENNOSIDES/DOCUSATE 1 EA TAB PO SCH (09:00)
--- NOTE | 2023-11-29 10:14 | NUR ---
IN TO ADMINISTER MEDICATIONS, SEE MAR. PT SITTING UP IN BED AND RESPONDS WHEN ADDRESSED. PT TAKES PO MEDICAITONS WITH NO ISSUES. PT DENIES PAIN AT THIS TIME. PT DENIES NUMBNESS OR TINGLING IN ANY EXTREMITIES AT THIS TIME. ASSESSMENT COMPLETE. LUNG SOUNDS CLEAR IN RUL, GABE AND RLL. DIMINISHED IN LLL WITH SOME CRACKLES. BOWEL TONES ACTIVE. ABD TENDERNESS TO LLQ WITH PALPATION. PEDAL PULSES PALPABLE AND EQUAL. PT A&O TO SELF. ASKED PT WHAT THE DATE IS AND PT STATES "I HAVE NO IDEA, I HAVE BEEN HERE 3 DAYS." ASKED PT WHAT MONTH IT IS AND PT STATES "." ASKED PT WHAT YEAR IT IS AND PT STATES "2021." INFORMED PT IT IS November. ASKED PT IF PT KNOWS WHERE PT IS AND PT STATES "SOMEWHERE IN [place]." INFORMED PT THAT PT IS IN [place]. PT STATES "I LIVE IN [place], BUT I DO NOT KNOW WHERE THIS IS." INFORMED PT THAT PT IS IN [place]. ASKED PT IF PT KNOWS WHAT BUILDING PT IS IN AND PT STATES "I HAVE NO IDEA WHAT THIS BUILDING IS." INFORMED PT THAT PT IS AT [facility]. PT STATES "OKAY." IV FLUSHES AND IS INFUSING WNL. PT ASKING TO GO OUTSIDE TO SMOKE. NICOTINE PATCH PROVIDED, SEE MAR. PT SITTING UP IN BED AND DENIES ANY NEEDS AT THIS TIME. CALL LIGHT IN REACH. BED ALARM ON.
[2023-11-29] MEDS ORDERED: LORazepam 2 MG/ML VIAL IV ONE (10:45)
--- NOTE | 2023-11-29 10:46 | NUR ---
THIS RN CALLED DR. HARTMANN REGARDING PT GETTING UP AND OUT OF BED AND STATING "I AM GOING HOME." VERBAL ORDERS FROM DR. HARTMANN "1MG IV ATIVAN ONCE." VERIFIED WITH READBACK. THIS RN ASKED IF MD WOULD LIKE TO COME DOWN AND SEE THE PATIENT.
--- NOTE | 2023-11-29 10:54 | NUR ---
CALLED TO PTS ROOM HE IS ATTEMPTING TO LEAVE AGAINST MEDICAL ADVICE AND REFUSING TO KEEP A GOWN ON. IN TO SPEAK WITH PT. PT REPORTS HIS DAUGHTER CALLED HIM AND IS UPSET. ATTEMPTED TO ASK PT ORIENTATION QUESTIONS. PT REPORTS THE MONTH IS OCTOBER, DOES GET CORRECT . PT IS ORIENTED TO SELF, BUT NOT PLACE OR SITUATION. CALLED DR BETHEA TO REQUEST HE COMES TO SPEAK WITH THE PT ABOUT ATTEMPT TO LEAVE AMA. DR BETHEA REPORTS PT CAN SIGN OUT AMA. AGAIN TOLD HIM THAT PT IS NOT ANSWERING ORIENTATION QUESTIONS CORRECTLY AND HE NEEDS TO COME EVALUATE THE PT AGAIN BEFORE THAT DECISION IS MADE. DR BETHEA DOES AGREE BUT REPORTS HE WANTS PTS GIRLFRIEND CALLED AND PRIMARY RN TO GIVE IV ATIVAN PRIOR TO HIM COMING TO SEE PT.
--- NOTE | 2023-11-29 11:01 | NUR ---
IN TO ADMINISTER MEDICAITON, SEE MAR. MARY RN IN ROOM TALKING WITH PT. PT SITTING UP IN RECLINER IN OWN CLOTHES. MEDICATION ADMINISTERED. DR. HARTMANN IN ROOM.
--- NOTE | 2023-11-29 11:23 | NUR ---
PT SITTING IN RECLINER. IV INFUSING WNL. IV PUMP PLUGGED INTO OUTLET. SARAI ROSA IN TO SIT WITH PT. NO OTHER NEEDS FROM THIS RN. CALL LIGHT IN REACH.
--- NOTE | 2023-11-29 11:26 | NUR ---
CALLED ANA TO GIVE UPDATE PER DR. HARTMANN. PER ANA "I AM GOING TO TRY TO GET OFF WORK EARLY TO GET THERE AROUND 2. THANK YOU FOR THE UPDATE."
[2023-11-29] MEDS ORDERED: LORazepam 2 MG/ML VIAL IV PRN (11:30)
[2023-11-29] MEDS ORDERED: HALOPERIDOL LACTATE 5 MG/ML VIAL IV PRN (11:30)
--- NOTE | 2023-11-29 12:55 | NUR ---
PT RESTING IN BED SEMI-FOWLERS, EYES CLOSED AND RR EVEN AND UNLABORED. NO NEEDS IDENTIFIED AT THIS TIME. CALL LIGHT IN REACH. BED ALARM ON.
--- NOTE | 2023-11-29 14:30 | NUR ---
THIS RN INFORMED THAT PT "PULLED IV OUT." NIKO KEARNEY IN ROOM. NIKO HERNANDEZ IN ROOM. NIKO HERNANDEZ AT DOOR. SECURITY IN ROOM.
--- NOTE | 2023-11-29 14:55 | NUR ---
IN PT YELLING AT SARAI ROSA AND "GET THE FUCK AWAY FROM ME." PT STANDING AT BEDSIDE, GAIT NOTED TO BE UNSTEADY. PT ASKED TO SIT BACK DOWN. PT SITS DOWN. PT ASKING FOR TAP WATER. WATER PROVIDED. PT TAKES SIP OF WATER. PT ATTEMPTS TO STAND AGAIN AND STATES "I WANT TO GO OUTSIDE GET SOME FRESH AIR, SMOKE A CIGARETTE AND DRINK A BEER." EDUCATED PT THAT PT IS NOT SAFE FOR PT TO AMBULATE AT THIS MOMENT. PT ASKED TO SIT BACK DOWN. PT SITS BACK DOWN. PT STATES "I WANT TO GO TO [facility]." INFORMED PT THAT PT IS AT [facility]. PT STATES "NO I AM NOT." SARAI ROSA STATES "YES YOU ARE, LOOK MY BADGE EVEN SAYS [facility]." PT STATES "YEAH, I HAVE A BADGE TOO THAT SAYS [employer]." PT STANDS BACK UP. OFFERED FOR PT TO SIT IN RECLINER. PT AMBULATES WITH UNSTEADY GAIT TO RECLINER. PT SITS ON COUCH. SARAI ROSA AND IN ROOM. SARAI PURVIS IN ROOM. LINENS CHANGED. NO OTHER NEEDS FROM THIS RN. SARAI ROSA AND IN ROOM. PT SITTING ON COUCH.
--- NOTE | 2023-11-29 15:00 | NUR ---
1400 VITALS NOT COMPLETE DUE TO PTs AGITATION.
--- NOTE | 2023-11-29 15:03 | NUR ---
MED REC COMPLETE
[2023-11-29] MEDS ORDERED: HALOPERIDOL LACTATE 5 MG/ML VIAL IM ONE (15:15)
--- NOTE | 2023-11-29 15:28 | NUR ---
PATIENT IS NOW SITTING IN THE CHAIR, PT IS AGITATED. PT ASKED FOR APPLE JUICE AND COFFEE. SECURITY AND FENCE INSTALLER IN THE ROOM. PT SEEMS TO BE A LITTLE BIT MORE RELAXED NOW.
--- NOTE | 2023-11-29 16:01 | NUR ---
PTs DAUGHTER CALLED, THIS RN UPDATED DAUGHTER. DAUGHTER AGREEABLE.
--- NOTE | 2023-11-29 16:05 | NUR ---
THIS RN CALLED DR. HARTMANN REGARDING PT TAKING IV OUT AND 1400 DOSE OF ABX IS UNABLE TO BE GIVEN. MD AWARE. PER MD "IT IS OKAY TO RETIME THE ABX ONCE A NEW IV IS ESTABLISHED." VERIFIED WITH READ BACK.
--- NOTE | 2023-11-29 16:18 | NUR ---
FAMILY MEMBER APPROACHED NURSING STATION STATING PT PULLED IV OUT. UPON ENTERING ROOM PT ATTEMPTING TO GET OUT OF BED, IV OUT AND FAMILY MEMBER PRESENT. ATTEMPTED TO APPLY GAUZE DRESSING TO IV SITE. PT STATED "GET AWAY FROM ME, DO NOT TOUCH ME" PT GRABBED THIS RN WRISTS, WOULD NOT LET GO WHEN ASKED. PT CONTINUED TO YELL "GET AWAY FROM ME" PT RELEASED THIS RNS WRIST AND ATTEMPTED TO LEAVE HOSPITAL ROOM. MOE MOON AND MARY RN IN ROOM FOR ASSISTANCE, SECURITY CALLED AND IN ROOM. PT NOT ORIENTED TO PLACE, TIME OR SITUATION. CONTINUED TO ATTEMPT TO LEAVE ROOM. PT ALLOWED DRESSING TO BE APPLIED TO IV SITE. VERBAL ORDER FROM DR HARTMANN FOR 5MG HALDOL IM. IM HALDOL GIVEN IN RIGHT ARM. PT AGREEABLE TO SIT AT EDGE OF BED. PT YELLED FOR FAMILY MEMBER TO "LEAVE AND NEVER COME BACK" FAMILY MEMBER LEFT AT THIS TIME. PT APPEARS TO HAVE DE-ESCALATED AT THIS TIME. MOE FREITAS REMAIN IN ROOM WITH PT.
--- NOTE | 2023-11-29 16:18 | NUR ---
IN SARAI ROSA INFORMS THIS RN THAT PT IS REQUESTING "SOMETHING FOR ANXIETY." THIS RN ASKS PT IF PT IS OKAY WITH GETTING A NEW IV SO THAT PT CAN GET PRN MEDICATION FOR ANXIETY. PT AGREEABLE. PT HOLDS ARM OUT FOR THIS RN. 1 ATTEMPT IN PTs RIGHT FOREARM SUCCESSFUL. PT TOLERATES WELL. IV NOTED TO HAVE BRISK BLOOD RETURN AND FLUSHES WNL. PRN MEDICATION ADMINSITERED, SEE JUL. IV ABX STARTED, SEE JUL. IV FLUIDS RESUMED. PT SITTING UP IN RECLINER. PT CLOSES EYES AND RESTS. RR EVEN AND UNLABORED. SARAI ROSA IN TO SIT WITH PT. NO OTHER NEEDS FROM THIS RN. CALL LIGHT IN REACH.
--- NOTE | 2023-11-29 19:26 | NUR ---
REPORT RECIEVED FROM DAY SHIFT RN. PATIENT RESTING IN BED WITH EYES CLOSED. RESPIRATIONS EVEN AND UNLABORED. THIS RN REMAINS IN ROOM.
--- NOTE | 2023-11-29 21:50 | NUR ---
THIS RN AND FACING BASTER IN ROOM TO OBTAINED VS AND BS. PATIENT RESTING IN BED WITH EYES CLOSED. PATIENT OPENS EYES AND STATES "WILL YOU GUYS LEAVE ME THE FUCK ALONE!". PRN ANXIETY MEDICATION ADMISNITERED.
--- NOTE | 2023-11-29 22:04 | NUR ---
PATIENET RESTING IN BED. VS, BS AND I&Os OBTAINED AND RECORDED. IV FLUSHES WNL. PATIENT REFUSES CATHETER CARE AT THIS TIME. ASSESSMENT COMPLETE. FRESH WATER PROVIDED. CALL LIGHT IN REACH.
--- NOTE | 2023-11-29 22:20 | NUR ---
PATIENT TRYING TO GET OUT OF BED. PATIENT STATES "JUST GET ME THE FUCK OUT OF HERE". PATIENT GRIPPING THE BED RAILS VIOLENTLY SHAKING THEM. PATIENT GRABBED THIS RNs HAND AND WOULD NOT LET GO. PATIENT KICKING LEGS AT STAFF AND IN THE AIR AND PUNCHING THE BED. PRN MEDICATION ADMINSITERED, SEE MAR. THIS RN AND SARAI RAMIRES REMAIN IN ROOM TO ENSURE PATIENT SAFETY. BED ALARM ON FOR SAFETY.
--- NOTE | 2023-11-29 22:44 | NUR ---
PATIENT RESTING IN BED APPEARING AGITATED. PATIENT TRYING TO GET OUT OF BED. PATIENT EDUCATED ON REMAINING IN BED TO REMAIN SAFE. SHELLS INSPECTOR AND THIS RN REMAIN AT BEDSIDE.
--- NOTE | 2023-11-29 23:02 | NUR ---
PATIENT RESTING IN BED WITH EYES CLOSED. RESPIRATIONS EVEN AND UNLABORED. HOB ELEVATED. PATIENT RR 18. PATIENT REMAINS FULLY DRESSES IN PATIENT CLOTHING, HOWEVER PATIENT SHIRT UNBOTTONED DUE TO PATIENT VIOLENTLY RIPPING IT OPEN BEFORE PRN MEDICATION ADMINISTERED AT 2220. BED ALARM REMAINS ON. THIS RN REMAINS WITHIN SITE OF PATIENT.
[2023-11-30] VITALS (8 sets, daily range): BP systolic 141–164; BP diastolic 55–86
--- NOTE | 2023-11-30 00:37 | NUR ---
PATIENT RESTING IN BED WITH EYES CLOSED. RESPIRATIONS EVEN AND UNLABORED. PATIENT APPEARS TO BE COMFORTABLE. BED ALARM ON FOR SAFETY. THIS RN REMAINS IN ROOM.
--- NOTE | 2023-11-30 01:43 | NUR ---
PATIENT REPOSITIONED HIMSELF IN BED. PATIENT APPEARS TO BE STRUGGLING TO PULL BLANKETS UP FROM THE FOOT OF THE BED. WARM BLANKET PROVIDED. PATIENT RESPIRATIONS EVEN AND UNLABORED. THIS RN REMAINS IN ROOM.
--- NOTE | 2023-11-30 03:47 | NUR ---
PATIENT RESTING IN BED WITH EYES CLOSED. RESPIRATIONS EVEN AND UNLABORED. CALL LIGHT IN REACH. BED ALARM ON FOR SAFETY.
--- NOTE | 2023-11-30 05:48 | NUR ---
PATIENT RESTING IN BED WITH EYES CLOSED. RESPIRATIONS EVEN AND UNLABORED. NEW BAG IV FLUID AND IV ABX INFUSING PER ORDER. PATIENT I&Os OBTAINED AND RECORDED. PATIENT URINE IS LIGHT PINK IN COLOR. THIS RN REMAINS AT BEDSIDE.
--- NOTE | 2023-11-30 06:13 | NUR ---
THIS RN AND STRING CUTTER IN ROOM TO OBTAINED VS. PATIENT OPENED EYES WHEN THIS RN TRIED TO OBTAINED PATIENT TEMP. PATIENT STATES "WHAT DO YOU WANT?" THIS RN EXPLAINED I WAS TRYING TO OBTAINED PATINT TEMP. PATIENT NODDED HIS HEAD AND CLOSED EYES. PATIENT ESTELA WELL. PATIENT RESTING IN BED. RESPIRATIONS EVEN AND UNLABORED. THIS RN REMAINS AT BEDSIDE.
--- NOTE | 2023-11-30 06:54 | NUR ---
PATIENT RESTLESS IN BED AND STATES "I NEED TO GET UP". THIS RN, ORAL THERAPIST, AND PIN CLEANER IN ROOM TO ASSIST PATIENT TO CHAIR. PATIENT APPEARS UNSTEADY AT THIS TIME. PATIENT AGREES TO WEAR GOWN. NEW GOWN PLACED, PATIENT CLOTHES PUT IN PATIENT BELONGING BAGS IN CLOSET. PATIENT REPORTS WANTING TO GO BACK TO BED. PATIENT REPOSITIONED IN BED. MENDEZ CATH CARE PROVIDED. PATIENT APPEARS COMFORTABLE IN BED. BED ALARM ON FOR SAFETY. PATIENT DRANK SOME DRINKS OF GLUCERNA. FRESH COFFEE PROVIDED PER PATIENT REQUEST.
--- NOTE | 2023-11-30 07:29 | NUR ---
Patient resting, eyes closed, respirations even and non labored. Patient has no notable distress. Personal supplies and call light within reach.
--- NOTE | 2023-11-30 07:41 | EKG ---
[facility] [address] [place] [address] Signed Normal sinus rhythm Right bundle branch block Left anterior fascicular block Bifascicular block Possible Anteroseptal infarct (cited on or before 22-NOV-2023) Abnormal ECG When compared with ECG of 22-NOV-2023 10:12, Questionable change in initial forces of Lateral leads Confirmed by Asad Hartmann MD ([id number]) on 11/30/2023 7:41:20 AM Electronically Signed By: ASAD HARTMANN 11/30/23 0741 PATIENT NAME: TIEN ESPINO Electrocardiogram DATE OF : 47 PHYSICIAN: ASAD HARTMANN REPORT #: [id number] REPORT IS CONFIDENTIAL AND NOT TO BE RELEASED WITHOUT AUTHORIZATION
--- NOTE | 2023-11-30 07:50 | NUR ---
Patient up to bedside commode, no bm. Patient agitated with cares, pt asking staff "do you enjoy this"... "do you like being in control". Staff reassured patient that we are here to care for his medical needs and to ensure he is safe at all times. Patient back to bed, he continues to be very agitated. Ativan 2MG IV admin at this time. Bed alarm intact. Patient remains a 1:1 and close to RN station. IV site patent.
--- NOTE | 2023-11-30 08:15 | NUR ---
PATIENT IS SLEEPING. BED LINENS CHANGED. ALSO THE BLANKET ON THE CHAIR WAS CHANGED AND NEW DISPOSABLE UNDERPAD.
[2023-11-30] MEDS ORDERED: ENOXAPARIN SODIUM 40 MG/0.4 ML SYR SUB-Q SCH (09:00)
--- NOTE | 2023-11-30 09:18 | NUR ---
PATIENT IS SLEEPING. HASN'T ATE BREAKFAST YET. WILL TRY LATER.
--- NOTE | 2023-11-30 10:40 | NUR ---
Patient ate a few bites of his eggs this morning, tolerated well.
--- NOTE | 2023-11-30 10:48 | NUR ---
Patient reports he has pain in lower abdomen near bladder. Admin morphine 2mg IV at this time. Patient's IV remains patent. NO current needs. COMPRESSED AIR PILE DRIVER OPERATOR at bedside for monitoring.
--- NOTE | 2023-11-30 11:14 | NUR ---
THE BARMAN WILL MONITOR THE PATIENT FOR FURTURE NEEDS. THE PATIENT IS CONFUSED AND REQUIRES ATIVAN AND 1:1 MONITORING AT THIS TIME.
--- NOTE | 2023-11-30 11:15 | NUR ---
PATIENT LET ME WASH HIS FACE.
--- NOTE | 2023-11-30 11:16 | NUR ---
PATIENT SAYS HE NEEDS TO GET UP THAN FALLS BACK TO SLEEP.
--- NOTE | 2023-11-30 13:27 | NUR ---
Patient awake, alert to self. Patient agitated with cares. Ativan 2mg iv admin at this time. Patient requesting to go home, education provided to patient regarding current plan of care and need for perscribed IV abx due to infection.
--- NOTE | 2023-11-30 13:37 | NUR ---
Dr. Smith notified that urine sensitivity is back. No new orders obtained at this time.
--- NOTE | 2023-11-30 13:47 | NUR ---
PATIENT LET ME GET HIS TWO A CLOCK VITALS. PATIENT WANTED ME TO TURN ON HIS TV.
--- NOTE | 2023-11-30 14:03 | NUR ---
PATIENT ASKED FOR A DRINK OF WATER. PATIENT TOOK A COUPLE OF SIPS. PATIENT LEGS ARE UP ON HIS BED. PATIENT WENT BACK TO SLEEP.
--- NOTE | 2023-11-30 14:22 | NUR ---
PATIENT HASN'T ATE ANY OF HIS LUNCH YET. I HAVE OFFERED HIM SEVERAL TIMES.
--- NOTE | 2023-11-30 14:41 | NUR ---
Patient is awake and calm, alert to self. Patient denies pain at this time. SECURITY TESTER at bedside. Personal supplies and call light within reach.
--- NOTE | 2023-11-30 15:21 | NUR ---
ORDERED PATIENT A PEANUT BUTTER AND JELLY SANDWICH. HE TOOK TWO BITES OUT OF IT SO FAR. ALSO WE GOT HIM GLUCERNA AN HE HAS DRANK ALMOST ALL OF IT.
--- NOTE | 2023-11-30 15:49 | NUR ---
Patient reports pain in right bladder region. Admin morphine 2mg IV at this time. Patient awake/calm at this time. IV abx infusing, iv site patent. No current needs, personal supplies and call light within reach.
--- NOTE | 2023-11-30 15:55 | NUR ---
Assisted Pt with standing to use bedside commode. Pt felt weak and like he did not have to go anymore. Repositioned and boosted back in bed with RN. No other nees expressed by Pt. MOTEL FRONT DESK CLERK continuing to sit 1-1 in pts room.
--- NOTE | 2023-11-30 16:49 | NUR ---
Patient reports he has a headache. Admin tylenol 1000mg po at this time. Patient assisted to chair for dinner, pt moves slow/2pa with walker. Patient coversing more with staff for his needs. Pt remains a 1:1.
--- NOTE | 2023-11-30 17:30 | NUR ---
Assisted Pt 1PA FWW to stand to use bedside commode. Once on the commode Pt did not need to go, and moved back to bed. No other needs expressed by Pt. BANDOLEER PACKER continues to be in room with Pt.
--- NOTE | 2023-11-30 17:45 | NUR ---
Assisted Pt with standing to use the bedside commode. Pt did not need to go, and returned to bed. No other needs expressed by Pt. QUANTITATIVE RESEARCH ANALYST continues to be in room with Pt.
--- NOTE | 2023-11-30 17:55 | NUR ---
Assisted Pt from bed to chair 1PA FWW. Provided warm blanket. No other needs expressed by Pt. MEETING PLANNER continues to be in room with Pt.
--- NOTE | 2023-11-30 20:21 | NUR ---
BED ALARM ANSWERED. PT WANTED TV OFF. SYSTEMS SECURITY ANALYST TURNED OFF TV AND OBTAINED VITALS AND I&O. PT STATES NO FURTHER NEEDS AT THIS TIME. CALL LIGHT WITHIN REACH.
--- NOTE | 2023-11-30 20:35 | NUR ---
PIPELINE CONTROLLER GOT BLOOD SUGAR CHECK. PT STATES NO FURTHER NEEDS AT THIS TIME. CALL LIGHT WITHIN REACH.
--- NOTE | 2023-11-30 20:37 | NUR ---
sitting edge of bed, trying to get out of bed.
--- NOTE | 2023-11-30 20:48 | NUR ---
pt TRYING TO GET OOB, BED ALARM GOING OFF. THERAPEUTIC COMMUNICATION PROVIDED, pt STATES HE HAD A "LOUSY DAY". pt ASSISTED WITH GETTING FEET BACK IN BED, BED ALARM RESUMED AND CALL LIGHT IN REACH. WARM BLANKET PROVIDED FOR COMFORT, NO ADDITIONAL NEEDS. TV OFFERED TO pt, pt STATES, "NO I JUST WANT IT QUIET". pt REMAINS IN VIEW OF RN STATION.
--- NOTE | 2023-11-30 21:42 | NUR ---
HOB ELEVATED, WATCHING TV. IVF INFUSING RFA. CBG WNL. NO COVERAGE NEEDED. MEDICATED WITH BENADRYL. RESTLESS BUT EASILY REDIRECTABLE. LE ELEVATED, BED ALARM IN PLACE. FALL PRECAUTIONS INPLACE, PT IS 1-2 WHEN AWAKE AND RESTLESS
--- NOTE | 2023-11-30 22:59 | NUR ---
pt FIDGETING IN BED, WANTING TO GET OOB AND GET DRESSED. pt REORIENTED TO DATE/TIME. BED ALARM REMAINS ON FOR SAFETY, pt IN VIEW OF RN STATION. BLACK COFFEE ALSO PROVIDED.
[2023-12-01] VITALS (9 sets, daily range): BP systolic 143–162; BP diastolic 81–85
--- NOTE | 2023-12-01 00:35 | NUR ---
PT SITTING UP POSITION IN BED, TRIED TO GET OUT OF BED, REDIRECTABLE, ON 05-28 AT THIS TIME, F/C PATENT, IVF INFUSING. BED ALRM ON
--- NOTE | 2023-12-01 03:21 | NUR ---
PT WITH EYES CLOSED AND RESTING OFF AND ON. IVF INFUSING, F/C PATENT DRAINING PINKISH DARK YELLOW COLORED URINE, F/C CHRONIC. ON ROOM AIR
--- NOTE | 2023-12-01 05:34 | NUR ---
CULINARY WORKER OBTAINED VITALS AND I&O. PT STATES NO FURTHER NEEDS AND IS BACK ASLEEP. CALL LIGHT WITHIN REACH AND CULINARY WORKER REMAINS OUTSIDE ROOM 1:1
[2023-12-01 05:37] LABS: BASOPHILS 0.4 % (0-2); EOSINOPHILS 4.3 % (0-6); HEMATOCRIT 43.5 % (35.0-50.0); HEMOGLOBIN 14.8 g/dL (12.0-18.0); LYMPHOCYTES 20.6 % (24-44); MCH 31.3 (27-36); MCHC 33.9 g/dl (30-36); MCV 92.3 fl (81-99); MONOCYTES 10.2 % (0-12); NEUTROPHILS 64.5 % (39-80); PLATELET COUNT 257 K/uL (140-440); RBC 4.71 M/ul (4.3-5.7); RDW 13.1 (10.5-15.0)
[2023-12-01 05:48] LABS: ANION GAP 10.9 (7-21); BUN/CREATININE RATIO 13.69 (6.0-28.6); CALCIUM 8.9 mg/dL (8.5-10.1); CREATININE, SERUM 0.73 mg/dL (0.70-1.30); POTASSIUM 3.9 mmol/L (3.5-5.1)
--- NOTE | 2023-12-01 07:37 | NUR ---
REPORT RECEIVED FROM NIKO KEYES. PATIENT RESTING IN BED. TRUCKER HAND AT BEDSIDE FOR 1:1. CALL LIGHT IN REACH.
--- NOTE | 2023-12-01 08:20 | NUR ---
PATIENT CONFUSED AND AGITATED UPON ASSESSMENT. REPORTS HE IS GOING TO GET UP AND LEAVE. CONTINUED TO REINFORCE POC WITH PATIENT. PROVIDER IN ROOM TO SEE PATIENT AND ALSO REINFORCED POC. MEDICATED FOR IRRITATION PER JUL. MENDEZ CARE PROVIDED AND NEW CATH LOCK PLACED ON LEFT INNER THIGH. 1:1 SANDWICH HAND IN ROOM. CALL LIGHT IN REACH.
--- NOTE | 2023-12-01 08:30 | NUR ---
BEFORE BREAKFAST PATIENT WANTED TO GET UP TO THE BED SIDE COMMODE. HE FELT LIKE HE NEEDED TO HAVE A BOWEL MOVEMENT ALL IT WAS WAS GAS. BREAKFAST CAME AND OFFER HIM SOME BREAKFAST. NOW HE IS SLEEPING. WHEN HE WAKES UP I WILL OFFER IT TO HIM AGAIN.
--- NOTE | 2023-12-01 09:36 | NUR ---
PATIENT WOKE UP WANTED TO USE THE BEDSIDE COMMODE NO RESULTS JUST GAS. TRY TO FLOAT HIS HIPS PATIENT SAID IT WAS UNCOMFORTABLE. PILLOW IS ON HIS RIGHT SIDE UNDER HIS HIP. ROLLED UP AN HAND TOWEL AND PUT IT UNDER HIS NECK. PATIENT IS NOW SLEEPING.
[2023-12-01 09:42] LABS: CALCULI MASS 99 mg (())
--- NOTE | 2023-12-01 10:33 | NUR ---
Morphine 2mg IV admin at this time for reports of bladder pain. Patient assisted to chair at this time, 1pa with walker.
--- NOTE | 2023-12-01 11:00 | NUR ---
WHILE PATIENT WAS SITTING UP IN HIS CHAIR I GAVE HIM A BED BATH AND WASHED HIS HAIR. COMBED HIS HAIR. PUT CLEAN SOCKS ON AND A NEW GOWN.
--- NOTE | 2023-12-01 11:48 | NUR ---
PATIENT SITTING UP IN CHAIR. RESPONDS TO NAME BUT IS DROWSY. REPORTS PAIN BUT DOES NOT GIVE A NUMERICAL VALUE TO PAIN, HOWEVER, STATES HE FEELS LIKE HE NEEDS TO HAVE A BOWEL MOVEMENT SOON. CALL LIGHT IN REACH. 1:1 FAMILY SUPPORT SPECIALIST IN ROOM
--- NOTE | 2023-12-01 12:51 | NUR ---
PATIENT UP TO COMMODE TO HAVE A SMALL HARD BM. BLOOD NOTED FROM CATHETER. CATHETER CLEANED AND NEW SECUREMENT DEVICE PLACED. BACK TO BED AFTER LUNCH. IVF INFUSING WITHOUT DIFFICULTY. 1:1 AIR LIFT OPERATOR IN ROOM. CALL LIGHT IN REACH.
--- NOTE | 2023-12-01 14:43 | NUR ---
AFTER PATIENT USED THE BED SIDE COMMODE HE WANTED TO LAY DOWN AND WATCH SOME TV. BED ALARM IS ON AND CALL LIGHT AND HIS PHONE WITH IN REACH.
--- NOTE | 2023-12-01 14:57 | NUR ---
Patient agitated with cares, he is confused and requesting to leave the hospital. Admin ativan 2mg iv at this time. Discussed with patient that he is here in the hospital for antibiotics for urinary infection, pt does not understand well. Snack provided, encouraged patient to rest. Bed alarm intact. Patient remains a 1:1. .
--- NOTE | 2023-12-01 16:32 | NUR ---
LAYLA from Dr. Brown to discontinue current orders for ativan and start Seroquel 25mg po daily, start first dose today at 1900.
[2023-12-01] MEDS ORDERED: QUETIAPINE FUMARATE 25 MG TAB PO SCH ×2 (17:30→19:00)
--- NOTE | 2023-12-01 17:55 | NUR ---
PATIENT UP AND DOWN FROM BED TO CHAIR THROUGHOUT SHIFT. CONTINUES TO HAVE INTERMITTENT PERIODS OF AGITATION/IRRITATION. REMAINS CONFUSED, ALERT TO SELF ONLY. MENDEZ PATENT AND DRAINING PINK TO TEA COLORED URINE. 1:1 CEMENT LOADER IN ROOM DURING SHIFT.
--- NOTE | 2023-12-01 19:13 | NUR ---
resting, hob elevated, eyes closed, IVF infusing, f/c patent, on 05-28 at this time
--- NOTE | 2023-12-01 19:30 | NUR ---
this balcony worker intermittantly observing pt from rn station/in room, pt resting well at this time, alarms active, fluids at bedside table
--- NOTE | 2023-12-01 20:31 | NUR ---
pt remaining restful at this time, this director meetings remains nearby for any pt needs or impulsivity
[2023-12-01] MEDS ORDERED: POLYETHYLENE GLYCOL 3350 1 PACKET PO SCH (21:00)
--- NOTE | 2023-12-01 21:23 | NUR ---
pt drowsy, awakens easily, irritable mood, declined to take miralax or senna tabs, spit out. Semicooperative with assessment. lungs dim at baes, no distress, abd soft. f/c patetnt. IVf infusing RFA.
--- NOTE | 2023-12-01 21:43 | NUR ---
irritable, trying to get out of bed, not redirectable. mewdicated with Benadryl
--- NOTE | 2023-12-01 21:50 | NUR ---
IN TO SIT WITH PT, PT WANTING TO GET OOB, REDIRECTIBLE AT THIS TIME
--- NOTE | 2023-12-01 22:30 | NUR ---
REMAINING AT BEDSIDE, PT DOZING OFF, AWAKING EASILLY
[2023-12-02] VITALS (8 sets, daily range): BP systolic 131–149; BP diastolic 68–89
--- NOTE | 2023-12-02 | NUR ---
THIS CARGO MATE SITTING WITH PT, PT UP TO THE BSC FOR A SMALL/SMEAR BM, 1PA PIVOT WITH FWW, PT BACK IN BED, PROVIDED A SMALL SNACK, FRESH ICE WATER, PT SEEMS TO BE COMFORTALBE AT THIS TIME, SIPPING WATER AT BEDSIDE OCCASIONALLY LOOKING AT HIS PHONE
--- NOTE | 2023-12-02 01:15 | NUR ---
PT HAS BEEN RESTING FOR APROX 45 MINS, WILL CONTINUE TO MONITOR PT FROM RN STATION, ALARMS ACTIVE, CURTAIN OPEN
--- NOTE | 2023-12-02 01:33 | NUR ---
pt BECOMING MORE RESTLESS, ATTEMPTING TO GET OOB. pt REORINETED AND ATTEMTPTED TO ASSIST pt BLE BACK IN BED, pt YELLS AT THIS RN, "LEAVE MY FUCKING FEET ALONG". pt SLOWLY SCCOTS SELF BACK IN BED AND THEN TURNS IN BED AWAY FROM THIS RN, BED ALARM ON AND CALL LIGHT IN REACH. SARAI ROSE REMAINS IN ROOM WITH pt.
--- NOTE | 2023-12-02 01:40 | NUR ---
IN TO SIT WITH PT, PT RESTLESS WANTING TO SIT UP AND HAVE COFFEE, RN TO PROVIDE A CUP WHILE THIS FORMULA MAKER IS ASSISTING TO TO SETTLE IN BED
--- NOTE | 2023-12-02 01:58 | NUR ---
pt hob elevated sitting position in bed. irritable mood, received Benadryl earlier partially effective. 1-1 w coreroom foundry laborer at this time. trying to get out of bed, pulling at caatherer. cathere urine pinkish red to light tea colored urine noted. pt reminded not to pull at f/c, sand reoriented, semireceptive after several cuing. IVF infusing w/o problems.
--- NOTE | 2023-12-02 02:00 | NUR ---
ASSISTED PT UP TO THE BSC, PT PASSING GAS, BACK TO BED, PT ASKING WHERE HE WAS, ORIENTED PT TO TIME AND PLACE
--- NOTE | 2023-12-02 04:18 | NUR ---
pt trying to get out of bed, loud, talking foul language, angry tone of voice, not listening to cueing. pulling on f/c, f/c draining reddish-dark yello urine, not receptive to teaching, continues pulling at, patent. up to BSC,
--- NOTE | 2023-12-02 04:35 | NUR ---
Pt attempted to get out of bed on his own. RN x2 and WELT STITCHER responded. Pt showed aggression; RN called security. Pt calmed down after medication admininistered. Upon leaving room, Pt resting with eyes closed. Bed alarm set. Provided warm blanket for Pt. No other needs expressed by Pt.
--- NOTE | 2023-12-02 04:35 | NUR ---
BSC, no bm, "I just passed gas again" stated. Back to bed 2PA, unsteady, belligerent, angry using foul language, not very receptive, back to be w/o assit, ivf infusing, f/c patent. Declined sips of fluid, hob elevated. calmer and went back to sleep after a few minutes
--- NOTE | 2023-12-02 04:45 | NUR ---
Pt attempted to get out of bed. RN and DISPLAY COORDINATOR coaxed Pt back into bed. Provided fresh ice water. Upon leaving room Pt resting with eyes closed. No other needs expressed by Pt. Bed alarm set.
--- NOTE | 2023-12-02 04:45 | NUR ---
Pt crawled down to foot of bed again and out of bed. angry tone of voice, using foul language. Back to bed after many cuing. IVF and f/c patent
--- NOTE | 2023-12-02 07:05 | NUR ---
REPORT RECEIVED FROM NIKO KEYES. PATIENT ATTEMPTING TO GET OUT OF BED, REMAINS CONFUSED BUT RE-DIRECTABLE AT THIS TIME. CALL LIGHT IN REACH, BED IN LOWEST POSITION/LOCKED AND BED ALARM ON.
--- NOTE | 2023-12-02 08:45 | NUR ---
PT REQ BR USE. PT UP TO BSC 1 PA W FWW. STAND PIVOT. PT HAD BM. PT BACK TO CHAIR. PT PROVIDED BLANKETS AND COFFEE. PT NOW RESTING IN CHAIR. CHAIR ALARM SET. PT DENIES FURTHER NEEDS. CALL LIGHT IN REACH
[2023-12-02] MEDS ORDERED: GENTAMICIN PHARMACY TO DOSE IV SCH (09:00)
[2023-12-02] MEDS ORDERED: GENTAMICIN SULFATE 480 MG in DEXTROSE 5% 250 ML IV ONE (09:15)
--- NOTE | 2023-12-02 11:28 | NUR ---
PATIENT RESTING IN BED WHILE WATCHING TV. ASKS "WHAT HOSPITAL IS THIS" AND "WHAT ROOM AM I IN". PILLOW SUPPORT PLACED UNDER BILAT ELBOWS BLANCHEABLE REDNESS NOTED TO BOTH. IVF INFUSING WITHOUT DIFFICULTY. PATIENT DENIES PAIN OR NEEDS. FALL MAT ON FLOOR, BED IN LOWEST POSITION AND LOCKED, BED EXIT ALARM ON.
--- NOTE | 2023-12-02 13:58 | NUR ---
PT BED ALARM SET OFF. PT AT EDGE OF BED. PT REQ TO GET UP TO CHAIR. PT TO CHAIR 1 PA W FWW STAND PIVOT. PT DECLINED BLANKET. PT PHONE PLUGGED INTO MILKING WORKER. PT DECLINES ANY NEEDS. CHAIR ALARM SET, CALL LIGHT IN REACH
--- NOTE | 2023-12-02 14:14 | NUR ---
PATIENT UP IN CHAIR. ALERT TO SELF AND PLACE. ASKS "WHEN AM I GOING TO GET OUT OF THE HOSPITAL". REINFORCED PLAN OF CARE. PATIENT'S SO, ANA CALLED FOR UPDATRE AND REPORTED SHE WILL VISIT THIS AFTERNOON. PATIENT DENIES NEEDS. CHAIR ALARM ON AND CALL LIGHT IN REACH.
--- NOTE | 2023-12-02 14:29 | NUR ---
PT CHAIR ALARM GOING OFF, PT REQ TO GO BACK TO BED. PT BACK TO BED 1 PA W FWW. PT PROVIDED COFFEE. BED ALARM SET. PT DENIES ANY NEEDS CALL LIGHT IN REACH
--- NOTE | 2023-12-02 15:18 | NUR ---
PATIENT SITTING UP IN BED WHILE VISITING WITH ANA PETERSON. DENIES NEEDS. CALL LIGHT IN REACH.
--- NOTE | 2023-12-02 16:13 | NUR ---
PATIENT IN GOOD SPIRITS AFTER VISITING WITH ANA. ALERT TO SELF, YEAR, PLACE AND REPORTS THE PRESIDENT IS "THE ONE THAT SHOULDN'T BE IN OFFICE". DENIES PAIN OR NEEDS. INTERACTING APPROPRIATELY WITH STAFF AND REMAINS CALM. MENDEZ REMAINS PATENT AND DRAINING TEA COLORED URINE. READJUSTED PILLOWS FOR ELBOW SUPPORT. BED IN LOWEST POSITION, LOCKED AND BED EXIT ALARM ON. CALL LIGHT IN REACH.
--- NOTE | 2023-12-02 17:39 | NUR ---
PATIENT ATE SUPPER WELL. OOB TO AMBULATE IN HALLWAY APPROXIMATELY 30 FEET BUT THEN C/O OF TIRING. FWW AND GAIT BELT USED. BACK TO CHAIR. IV REMAINS PATENT AND INFUSING WITHOUT DIFFICULTY. CHAIR ALARM ON, CALL LIGHT IN REACH.
[2023-12-02] MEDS ORDERED: NITROFURANTOIN MONOHYD MACROCR 100 MG CAP PO SCH (21:00)
--- NOTE | 2023-12-02 22:33 | NUR ---
pt sitting position in bed. alert and oriented to self, place and town, very appropriate and cooperative with assessments and vitals, repositioned. IVF infusing L arm, abd soft, had a loose stools, lotion to red gluteal area. f/c care done, draining reddish/tea colored urine. instructed not to pullit, "I need to make sure im peing" stated. took meds w/o problems, Bed alarm in place.
--- NOTE | 2023-12-03 01:26 | NUR ---
RESTING, EYEES CLOSED, IVF INFUSING, F/C PATENT, bed alrm in place
--- NOTE | 2023-12-03 02:53 | NUR ---
Resting, eyes closed, no s/sx distress. In bed sitting position. IVF infusing. f/c patent, draining medium colored urine. fluids at hands reach
--- NOTE | 2023-12-03 03:45 | NUR ---
bed alrm going off, pt scooted self to fob and out ofbed. "[place] looking for my clothes, Im gong home". redirectable, calmer, back to bed w/o problems. IVF infusing. f/c patent, draining medium dark yello urine. Pt repositioned self in bed. HOB elevated. calm, went back to sleep. Bed alarm in place
[2023-12-03 05:44] VITALS: BP 135/81
--- NOTE | 2023-12-03 05:52 | NUR ---
0540 BED ALARM SOUNDING, PT ON EDGE OF BED. REQUESTED TO GET UP AND DRESSED SUGGESTED GETTING INTO HIS CHAIR AND WAITING TIL AFTER BREAKFAST. HE AGREED. FRESH DECAF COFFEE, ICE WATER GIVEN. VS AND I/O COMPLETED. CHAIR ALARM IN PLACE.
[2023-12-03 05:59] VITALS: BP 135/81
--- NOTE | 2023-12-03 06:02 | NUR ---
PT UP TO RECLINER CHAIR 1pa BY CHARGE NURSE, TOLERATED WELL,, PLEASANT AND COOPERATIVE, STILL SLIGHTLY UNSTEADY, IMPULSIVE, BED AND CHAIR ALARM IN PLACE. IVF INFUSING. PT MORE ALERT TO PLACE, SELF AND SITUATION. EASILY REDIRECTABLE, VERY PLEASNT THIS SHIFT AND FOLLOWING INSTRUCTIONS ON FIRST CUING.
--- NOTE | 2023-12-03 07:41 | NUR ---
REPORT RECEIVED FROM NIKO KEYES. MIDLINE PLACEMENT IN PROCESS.
--- NOTE | 2023-12-03 08:00 | NUR ---
MIDLINE INSERTION NOTE WAS ASKED TO PLACE A MIDLINE IN THIS PATIENT FOR 2 WEEKS OF IV ABX. PT IS ORIENTED TO SELF FOR THIS RN. TELEPHONE CONSENT OBTAINED FOR PATIENT'S SIGNIFICANT OTHER BY MYSELF AND SAULO GARCIA RN. PATIENT WAS UPDATED ABOUT THE PROCEDURE AND AGREEABLE TO PROCEED. PT'S RIGHT ARM EXAMINED. THE BRACHIAL AND BASILIC VEINS WERE IDENITIFIED. THE BRACHIAL WAS CHOSEN AN 18G MIDLINE WOULD TAKE UP APPROXMIATELY 31% OF THE VEIN ACCORDING TO SITE VIVIAN 8 AND WAS LESS THAN 1 CM BELOW THE SURFACE. THE RIGHT ARM WAS DRAPED WITH STERILE TECHNIQUE. THE BRACHIAL VEIN WAS ACCESSED ON THE FIRST ATTEMPT, DARK RED NON PULSITILE BLOOD RETURNED. THE GUIDEWIRE AND CATHETER EASILY ADVANCED UP THE VEIN. GUIDEWIRE REMOVED AND INTACT. MIDLINE DRAWS BLOOD AND FLUSHES EASILY. PATIENT REPORTS NO DISCOMFORT. REPORT GIVEN TO PATIENT'S NURSE. PT SAT UP IN BED, BREAKFAST PROVIDED, BED ALARM ON, FALL MAT NEXT TO BED, CALL LIGHT WITH PT.
[2023-12-03 08:36] VITALS: BP 159/89
[2023-12-03 08:39] VITALS: BP 159/89
--- NOTE | 2023-12-03 08:52 | NUR ---
PATIENT ALERT TO SELF AND PLACE TODAY. PARTICIPATED IN ASSESSMENT. REPORTS HE FEELS TIRED TODAY. COMPLAINTED OF NAUSEA BUT IT PASSED. DENIES PAIN BUT THEN REPORTS TENDERNESS IN ABDOMEN. ANA IN ROOM TO VISIT.
[2023-12-03] MEDS ORDERED: DEXTROSE 5% IV SCH (09:00)
[2023-12-03] MEDS ORDERED: GENTAMICIN SULFATE IV SCH (09:00)
--- NOTE | 2023-12-03 09:10 | NUR ---
Spoke with Eduardo and his SO. Pt has been set up for OP IV therapy daily for [address] weeks[address] SO can [address] him this week, but not on Fri, Sat, or Sun. Pt wanting to drive himself but SO denies as pt having memory issues since this UTI started. Pt and SO agree to use a taxi for antibiotics therapy when SO cant transport. Pt uses the [facility], but would like to have pcp in town. SO asks if they could have [facility]amar [facility]. Let her know I can request a PCP and FU visit on dc. He will also need to fu with Dr. Sainz. I will add him onto the clinic list and the clinic will call them with appts. They deny other needs. Pt is very pleasant and able to tell me where he served in the . SO has concerns as pt's atenolol was stopped in the ER and he was placed on a ZIO. [facility] been [facility] as [facility] were told [facility] were not [facility]ts available for 3 months. He cannot remember who his [facility] dr[facility] is. SO said he was on team [employer]. She called and was told that is a womens team now. I will call Sarah Cho PORTFOLIO SPECIALIST and and attempt to get info.
[2023-12-03] MEDS ORDERED: NITROFURANTOIN100 M1 PO (09:47)
[2023-12-03] MEDS ORDERED: GENTAMICIN40 MG/1 ML IV (10:41)
--- NOTE | 2023-12-03 11:20 | NUR ---
THIS MORNING PATIENT BRUSHED HIS TEETH AND WASHED HIS FACE. IN ROOM.
--- NOTE | 2023-12-03 11:23 | NUR ---
PATIENT RESTING IN BED WITH EYES CLOSED. RESPIRATIONS EVEN AND UNLABORED. CALL LIGHT IN REACH.
--- NOTE | 2023-12-03 11:27 | NUR ---
Called and left a message for Sarah Cho at the [facility] asking for pts pcp and if they have transportation for this pt.
--- NOTE | 2023-12-03 12:34 | NUR ---
WHEN I WENT IN TO DO HIS BLOOD SUGAR CHECK I ASKED HIM IF HE WANTED TO EAT AND HE SAID IT DIDN'T LOOK TO APPETIZING.
[2023-12-03 13:56] VITALS: BP 135/80
--- NOTE | 2023-12-03 14:13 | NUR ---
Spoke with pts SO and updated they will receive a call from [facility] when their a r specialist returns for fu appts and pcp. They deny further needs.
--- NOTE | 2023-12-03 17:02 | NUR ---
Spoke with Marilou from the Clinic. Med the exercise science instructor is gone, but Marilou was able to add Eduardo for a fu appt with Dr. Dhaliwal on December 12 at 1 pm. They will call the pt with the appt.
--- NOTE | 2023-12-03 17:13 | NUR ---
patient forgot wallet. Significant other, Wen picked up wallet.
== END 2023-12-03 14:49 | disposition home or self-care (01) | DRG 690 ==
LOC: ED 12:23 → MS 15:41
PROVIDERS: Emergency Medicine; Internal Medicine; Urology; ADMIT Internal Medicine; ATTEND Internal Medicine
DX: N39.0 Urinary tract infection, site not specified (principal); I48.20 Chronic atrial fibrillation, unspecified; N20.1 Calculus of ureter; N40.1 Benign prostatic hyperplasia with lower urinary tract symptoms; N13.8 Other obstructive and reflux uropathy; M19.90 Unspecified osteoarthritis, unspecified site; R33.8 Other retention of urine; N32.0 Bladder-neck obstruction; I71.40 Abdominal aortic aneurysm, without rupture, unspecified; Z79.899 Other long term (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; Z91.030 Bee allergy status; K21.9 Gastro-esophageal reflux disease without esophagitis; E11.9 Type 2 diabetes mellitus without complications; F41.9 Anxiety disorder, unspecified; F17.210 Nicotine dependence, cigarettes, uncomplicated
CPT/HCPCS: 00910; 36415; 36569; 74176; 76000; 80048; 80053; 80170; 81001; 82365; 83605; 83735; 84484; 85025; 87040; 87077; 87088; 87186; 93005; 93010; A9270; C1751; C1769; C2617; J1100; J1200; J1580; J1630; J1650; J1885; J2060; J2185; J2250; J2270; J2405; J2704; J2765; J3010; J7030; J7050; J7060; J7121

== ENCOUNTER 2023-12-03 18:20 | Inpatient (IN) | payer OTHER, MEDICARE ==
[~2023-12-03] VITALS: Ht 185.4 cm; Wt 78.2 kg
[~2023-12-03 18:20] MED LIST changes: +GENTAMICIN40 MG/1 ML IV; +NITROFURANTOIN100 M1 PO
--- OUTSIDE RECORDS SUMMARY | 2023-12-03 18:28 | XMS ---
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 - 2 Visits in 30 Days CARE PROVIDERS There are no care providers on record at this time. Anaya has no Care Guidelines for this patient. Karina [facility] (12 MO.) [facility] T[facility] NOTE: Visits indicate total known visits. ED/C VISIT TRACKING (12 MO.) 12[facility]03[facility]2023 18[facility]21 [facility] COMPLAINT: - WEAKNESS 11/27/2023 12:23 [facility] [place] TYPE: Emergency COMPLAINT: - DIZZINESS 11/22/2023 10:09 [facility] [place] TYPE: Emergency COMPLAINT: - SYNCOPE,POSS HEAD INJURY DIAGNOSES: - Essential (primary) hypertension - Gastro-esophageal reflux disease without esophagitis - marine oil terminal superintendent (current) 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 - alf (current) use of oral hypoglycemic drugs - Nicotine dependence, unspecified, uncomplicated - Other insect allergy status - Other correction (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 - Syncope and collapse - Type 2 diabetes mellitus without complications - Unspecified atrial fibrillation 09/20/2023 13:47 [facility] [place] TYPE: Emergency COMPLAINT: - CATHETER ISSUE DIAGNOSES: - Bee allergy status - Essential (primary) hypertension - Gastro-esophageal reflux disease without esophagitis - alf (current) 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 - marine oil terminal superintendent (current) use of oral hypoglycemic drugs - Lower abdominal pain, unspecified - Other correction (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 - Other specified disorders [...] - Gastro-esophageal reflux disease without esophagitis - alf (current) 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 - marine oil terminal superintendent (current) use of oral hypoglycemic drugs - Nicotine dependence, unspecified, uncomplicated - Other middle or intermediate school principal (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 - Presence of urogenital implants - Type 2 diabetes mellitus without complications - Urinary tract infection, site not specified - Weakness 04/30/2023 19:47 [facility] [place] TYPE: Emergency COMPLAINT: - GENTAL PAIN DIAGNOSES: - Bee allergy status - Breakdown (mechanical) of indwelling urethral catheter, initial encounter - Essential (primary) hypertension - alf (current) 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 - Nicotine dependence, unspecified, uncomplicated - Other middle or intermediate school principal (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 - Type 2 diabetes mellitus without complications - Urethral disorder, unspecified - Urinary tract infection, site not specified 03/29/2023 21:11 [facility] [place] TYPE: Emergency COMPLAINT: - URINE PROBLEM DIAGNOSES: - Bee allergy status - Benign prostatic hyperplasia with lower urinary tract symptoms - Essential (primary) hypertension - Gastro-esophageal reflux disease without esophagitis - marine oil terminal superintendent (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) 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 - marine oil terminal superintendent (current) use of oral hypoglycemic drugs - Nicotine dependence, unspecified, uncomplicated - Other middle or intermediate school principal (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 - Other retention of [...] - Gastro-esophageal reflux disease without esophagitis - alf (current) 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 - marine oil terminal superintendent (current) use of oral hypoglycemic drugs - Nicotine dependence, unspecified, uncomplicated - Other middle or intermediate school principal (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 - Unspecified osteoarthritis, unspecified site INPATIENT VISIT TRACKING (12 MO.) 11/27/2023 15:41 [facility] [place] TYPE: Medical Surgical COMPLAINT: - UTI [email or web address]
[2023-12-03 19:19] LABS: BASOPHILS 0.4 % (0-2); HEMATOCRIT 45.7 % (35.0-50.0); HEMOGLOBIN 15.5 g/dL (12.0-18.0); LYMPHOCYTES 8.2 % (24-44); MCH 31.2 (27-36); MCHC 33.8 g/dl (30-36); MCV 92.1 fl (81-99); MONOCYTES 9.5 % (0-12); NEUTROPHILS 79.9 % (39-80); PLATELET COUNT 283 K/uL (140-440); RBC 4.97 M/ul (4.3-5.7); RDW 12.9 (10.5-15.0)
[2023-12-03 19:46] LABS: ALBUMIN 3.4 g/dL (3.4-5.0); ALBUMIN/GLOBULIN RATIO 0.94 (1.1-2.4); ANION GAP 12.2 (7-21); BILIRUBIN, TOTAL 0.7 ng/dL (0.2-1.0); BUN/CREATININE RATIO 15.84 (6.0-28.6); CALCIUM 10.1 mg/dL (8.5-10.1); CREATININE, SERUM 1.01 mg/dL (0.70-1.30); POTASSIUM 4.2 mmol/L (3.5-5.1)
[2023-12-03 19:57] LABS: BILIRUBIN, URINE NEGATIVE (negative); BLOOD/HGB, URINE LARGE (Negative); KETONE, URINE SMALL (Negative); LEUK ESTERASE, URINE SMALL (negative); NITRITE, URINE NEGATIVE (negative)
[2023-12-03 20:02] LABS: RED BLOOD CELLS, URINE 41-50 /hpf (0-5)
[2023-12-03 20:03] LABS: BACTERIA, URINE NONE SEEN /hpf (negative); CASTS, URINE NONE SEEN \\lpf; COLLECTION TYPE, URINE CLEAN CATCH; CRYSTALS, URINE NONE SEEN (0-1+); EPITHELIAL CELLS, URINE NONE SEEN /lpf (0-1+); REFLEX CULTURE, URINE No (No)
[2023-12-03] MEDS ORDERED: QUETIAPINE FUMARATE 25 MG TAB PO SCH (21:08)
[2023-12-03] MEDS ORDERED: PROCHLORPERAZINE EDISYLATE 10 MG/2 ML VIAL IV PRN (22:15)
[2023-12-03] MEDS ORDERED: ondansetron HCL 4 MG/2 ML VIAL IV PRN ×2 (22:15→22:45)
[2023-12-03 22:16] VITALS: BP 136/80
[2023-12-03] MEDS ORDERED: ACETAMINOPHEN 500 MG TAB PO PRN (22:45)
[2023-12-03] MEDS ORDERED: IBLOOD GLUCOSE TEST STRIP 1 EA TEST VI PRN (22:45)
[2023-12-03] MEDS ORDERED: DEXTROSE 5% 1,000 ML IV PRN (23:00)
[2023-12-03] MEDS ORDERED: IBLOOD GLUCOSE TEST STRIP 1 EA TEST XX PRN (23:00)
[2023-12-03] MEDS ORDERED: DEXTROSE 50% 50 ML SYR IV PRN ×2 (23:00)
[2023-12-03] MEDS ORDERED: GLUCAGON,HUMAN RECOMBINANT 1 MG/ML VIAL SUB-Q PRN (23:00)
[2023-12-04] VITALS (8 sets, daily range): BP systolic 119–136; BP diastolic 69–87
[2023-12-04 05:21] LABS: BASOPHILS 0.3 % (0-2); EOSINOPHILS 5.8 % (0-6); HEMATOCRIT 44.9 % (35.0-50.0); HEMOGLOBIN 15.4 g/dL (12.0-18.0); LYMPHOCYTES 18.3 % (24-44); MCH 31.3 (27-36); MCHC 34.3 g/dl (30-36); MCV 91.3 fl (81-99); MONOCYTES 10.9 % (0-12); NEUTROPHILS 64.7 % (39-80); PLATELET COUNT 270 K/uL (140-440); RBC 4.92 M/ul (4.3-5.7); RDW 12.8 (10.5-15.0)
[2023-12-04 05:31] LABS: BUN/CREATININE RATIO 21.42 (6.0-28.6); CALCIUM 9.6 mg/dL (8.5-10.1); CREATININE, SERUM 0.84 mg/dL (0.70-1.30)
[2023-12-04] MEDS ORDERED: INSULIN LISPRO 100 UNIT/ML ML SUB-Q SCH (08:00)
[2023-12-04] MEDS ORDERED: IBLOOD GLUCOSE TEST STRIP 1 EA TEST VI SCH (08:00)
[2023-12-04] MEDS ORDERED: DEXTROSE 5% IV SCH (09:00)
[2023-12-04] MEDS ORDERED: POLYETHYLENE GLYCOL 3350 1 PACKET PO SCH (09:00)
[2023-12-04] MEDS ORDERED: GENTAMICIN SULFATE IV SCH (09:00)
[2023-12-04] MEDS ORDERED: ENOXAPARIN SODIUM 40 MG/0.4 ML SYR SUB-Q SCH (09:00)
[2023-12-04] MEDS ORDERED: NICOTINE 21 MG/24 HR 1 EA TDSY TD SCH (09:00)
[2023-12-04] MEDS ORDERED: NITROFURANTOIN MONOHYD MACROCR 100 MG CAP PO SCH (09:00)
[2023-12-04] MEDS ORDERED: GENTAMICIN SULFATE 80 MG/2 ML VIAL IV SCH (09:00)
[2023-12-04] MEDS ORDERED: PHARMACY RENAL DOSE ADJUSTMENT 1 DOSE MISC PO SCH (12:00)
[2023-12-05 05:30] VITALS: BP 138/87
[2023-12-05 09:35] VITALS: BP 143/81
[2023-12-05 09:40] VITALS: BP 143/81
[2023-12-05 10:45] VITALS: BP 143/81
[2023-12-05 13:42] VITALS: BP 134/78
[2023-12-05 14:49] VITALS: BP 134/78
[2023-12-05] MEDS ORDERED: QUETIAPINE FUMARATE 25 MG TAB PO ONE (15:50)
== END 2023-12-05 15:55 | DRG 884 ==
LOC: ED 18:20 → MS 21:32
PROVIDERS: Internal Medicine; ADMIT Internal Medicine; ATTEND Internal Medicine
DX: F03.90 Unspecified dementia, unspecified severity, without behavioral disturbance, psychotic disturbance, mood disturbance, and anxiety (principal); I48.20 Chronic atrial fibrillation, unspecified; I10 Essential (primary) hypertension; E11.9 Type 2 diabetes mellitus without complications; F17.200 Nicotine dependence, unspecified, uncomplicated
CPT/HCPCS: 36415; 80048; 80053; 80170; 81001; 83880; 84484; 85025; 97162; 97166; 97535; A9270; J1580; J1650; J7060

== ENCOUNTER 2023-12-17 11:03 | Day surgery (SDC) | payer OTHER ==
[2023-12-10 11:33] VITALS: BP 125/70
[~2023-12-17] VITALS: Ht 185.4 cm; Wt 80.0 kg
[~2023-12-17 11:03] MED LIST changes: +CEFAZOLIN SODIUM 2 GM/20 ML SYR IV SCH; +CIPRO500 MG PO; +IBLOOD GLUCOSE TEST STRIP 1 EA TEST VI PRN; +LACTATED RINGER'S 1,000 ML IV SCH; +LIDOCAINE HCL 1% 5 ML SDV INJ ONE; +LO-DOSE ASPIRIN81 MG PO; +METFORMIN HCL500 M2 PO; +METOCLOPRAMIDE HCL 10 MG/2 ML SDV IV PRN; +MORPHINE SULFATE 10 MG/ML VIAL IV PRN; +NALOXONE HCL 0.4 MG SYR IV PRN; +OXYBUTYNIN CHLO10 MG PO; +PANTOPRAZOLE SO40 MG PO; +PHENAZOPYRIDIN100 MG PO; +PROCHLORPERAZINE EDISYLATE 10 MG/2 ML VIAL IV PRN; +PROSCAR5 MG PO; +VIAGRA100 MG PO; +VITAMIN D350 MCG PO; +droPERidol 5 MG/2 ML VIAL IV PRN; +fentaNYL citrate 50 MCG/ML SDV IV PRN; +ondansetron HCL 4 MG/2 ML VIAL IV PRN
[2023-12-17 11:20] VITALS: BP 138/75
[2023-12-17] MEDS ORDERED: iopamidoL 30 ML VIAL ONE (11:32)
[2023-12-17] MEDS ORDERED: ondansetron HCL 4 MG/2 ML VIAL ONE (11:52)
[2023-12-17] MEDS ORDERED: METOCLOPRAMIDE HCL 10 MG/2 ML SDV ONE (11:52)
[2023-12-17] MEDS ORDERED: fentaNYL citrate 100 MCG/2 ML VIAL ONE (11:52)
[2023-12-17] MEDS ORDERED: LACTATED RINGER'S 1,000 ML IV ONE (11:52)
[2023-12-17] MEDS ORDERED: DEXAMETHASONE SOD PHOS 4 MG/ML VIAL ONE (11:52)
[2023-12-17] MEDS ORDERED: MIDAZOLAM HCL 2 MG/2 ML VIAL ONE (11:52)
[2023-12-17] MEDS ORDERED: FAMOTIDINE 20 MG/ 2 ML VIAL ONE (11:52)
[2023-12-17] MEDS ORDERED: KETOROLAC TROMETHAMINE 30 MG/ML VIAL ONE (11:52)
[2023-12-17] MEDS ORDERED: propofoL 200 MG/20 ML VIAL ONE ×2 (11:52→12:49)
[2023-12-17] MEDS ORDERED: MACROBID 100 M100 MG PO (11:59)
[2023-12-17] MEDS ORDERED: GENTAMICIN40 MG/1 ML (12:01)
--- NOTE | 2023-12-17 12:04 | NUR ---
PT HAS DEMENTIA. ANSWERED AND DR WOODS TALKED WITH PT AND . CALLED DIDI AT THE [facility] TALKED WITH NURSE DIANA TO VERIFY MEDS AND ABX PT CURRENTLY ON AND LAST TIME GIVEN. DR WOODS AWARE OF THIS.
--- NOTE | 2023-12-17 12:15 | NUR ---
EMPTIED MENDEZ BAG 250MLS COLA COLORED URINE.
[2023-12-17] MEDS ORDERED: KETOROLAC TROMETHAMINE 15 MG/ML VIAL IV PRN (12:30)
[2023-12-17] MEDS ORDERED: OXYCODONE/APAP 5/325 TAB PO PRN (12:30)
[2023-12-17] MEDS ORDERED: TRAMADOL HCL 50 MG TAB PO PRN (12:30)
[2023-12-17] MEDS ORDERED: ondansetron HCL 4 MG/2 ML VIAL IV PRN (12:30)
[2023-12-17] MEDS ORDERED: MORPHINE SULFATE 4 MG/ML VIAL IV PRN (12:30)
[2023-12-17] MEDS ORDERED: ATROPINE SULFATE 1 MG/ML VIAL ONE (12:30)
[2023-12-17] MEDS ORDERED: ACETAMINOPHEN 1,000 MG/100 ML VIAL IV ONE (14:45)
[2023-12-17 15:23] VITALS: BP 145/77
--- NOTE | 2023-12-17 15:35 | NUR ---
LE 1520 PATIENT BACK TO ROOM 6. VITAL SIGNS COMPLETED. PATIENT ALERT. BREATHING EQUAL AND UNLABORED. OXYGEN SATURATIONS ABOVE 90% ON ROOM AIR. PATIENT SP DRAINING RED TINGED URINE. STENT IN PLACE. NO DRAINAGE AROUND THE PENIS. IVF INFUSING. SCD'S ON. PATIENT DRINKING WATER AND EATING CRACKERS. CALL LIGHT WITHIN REACH. NO FUTHER NEEDS. NO QUESITONS AT THIS TIME.
--- NOTE | 2023-12-17 16:03 | NUR ---
12/17/23 1603 Maria Guadalupe Garrido 1402-PT ARRIVED TO PACU ON 10L/MASK, NON-RESPONSIVE TO NOXIOUS STIMULI. DRSG TO SP CATH SITE ON ABD VISUALIZED. SMALL AMT OF SS DRAINAGE NOTED. NO DRAIANGE OBSERVED FROM URETHRAL OPENING, STRING FROM STENT TAPED IN PLACE TO PENIS. 1412-PT AROUSING AND GRASPING AT PENIS. PT EDUCATED ON NEED TO REFRAIN AND STENT PLACEMENT WITH STRING. PT CONT TO GRAB AT HIS PENIS AND WHEN INSTRUCTED OTHERWISE STATES "I'M STILL GOING TO TRY". FREQ REMINDERS PROVIDED TO REFRAIN FROM PULLING ON STENT STRING. 1413-DR. WOODS AT BEDSIDE TO GIVE PT UPDATE ON PROCEDURE. 1415-CBG CHECKED AND 96. UNABLE TO GET ACCURATE EKG READING D/T PT SHIVERING AND PRODUCING ARTIFACT WITH INABILITY TO SEE P WAVES. SPOKE WITH ANESTHESIA REGARDING THIS. ANESTHESIA REPORTS PT WAS IN A-FIB DURING PROCEDURE. SATS STABLE. PT DENIES NAUSEA. WARM BLANKETS AND WARM AIR PROVIDED. 1419-PT TITRATED TO RA. SATS STABLE ABOVE 92% ON RA. BREATHING EVEN AND UNLABORED. 1425-PT REPORTING BURNING INSIDE OF PENIS. REEDUCATED ON STENT PLACEMENT WITH STRING. ANESTHESIA CALLED AND ORDER REQUESTED FOR IV APAP FOR PAIN RELIEF. TELEPHONE ORDER RECEIVED. ORDER ENTERED. 1440-PAIN REASSESSED AND PT DOES NOT GIVE PAIN SCALE NUMBER. PT STATES "ITS NOT TOO BAD" BUT THEN MENTIONS IT STILL BARBER INSIDE PENIS. CONT TO DENY NAUSEA. 1445-DRSG OBSERVED TO BE SATURATED AT SP CATH INSERTION SITE. DRAINAGE APPEARS SS. ALSO NOTED SMALL AMT OF SANGUINEOUS DRAINAGE FROM URETHRA. 1449-CALLED DR. WOODS TO INFORM OF DRSG STATUS. DIRECTIONS RECEIVED TO REPLACE DRSG. SUPPLIES GATHER. DRSG CHANGED. GOWN ALSO CHANGED AND NEW WARM BLANKET GIVEN. 1456-IV APAP STARTED. 1500-PT IN HIGH FOWLERS POSITION AND TAKING SIPS OF WATER. RR EVEN AND UNLABORED. SATS REMAIN STABLE AT 92% OR GREATER ON RA. 1510-SP CATH DRAINED OF 600ML RED TINGED URINE. NO VISIBLE CLOTS. 1520-PT TRANSFERRED BACK TO VIA STRETCHER. REPORT GIVEN TO DS RN.
[2023-12-17 16:20] VITALS: BP 152/74
--- NOTE | 2023-12-17 16:33 | NUR ---
LE 1600 PATIENT STATES PAIN IMPROVED SINCE PACU. PATIENT HAS SMALL AMOUNT OF BURNING. PATIENT DENIES BEING NAUSEATED. SP DRAINING RED CLEAR URINE. STENT IN PLACE. LE 1620 PATIENT HAS MET DISCHARGE CRITERIA. PATIENT IV D/C'D WNL. DISCHARGE GIVEN. NO QUESTIONS FROM HIM OR HIS SPOUSE. PATIENT WHEELED OUT OF FACILITY. NO FUTHER NEEDS. PATIENT IN PRIVATE AUTO.
--- NOTE | 2023-12-17 16:47 | NUR ---
STERLING 164 ATTEMPTED TO CALL SERENA TO GIVE REPORT.
== END 2023-12-17 16:20 | disposition home or self-care (01) ==
LOC: OPS 11:03 → DS 11:03 → OPS 16:20
PROVIDERS: ATTEND Urology
PROC: 0TC68ZZ Extirpation of Matter from Right Ureter, Via Natural or Artificial Opening Endoscopic (ICD-10-PCS; principal; 2023-12-17 10:35)
PROC: 0T768DZ Dilation of Right Ureter with Intraluminal Device, Via Natural or Artificial Opening Endoscopic (ICD-10-PCS; 2023-12-17 10:35)
DX: N20.1 Calculus of ureter (principal); R33.9 Retention of urine, unspecified; I10 Essential (primary) hypertension; E11.9 Type 2 diabetes mellitus without complications; F17.200 Nicotine dependence, unspecified, uncomplicated; Z79.84 Long term (current) use of oral hypoglycemic drugs; Z79.899 Other long term (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; Z91.038 Other insect allergy status
CPT/HCPCS: 74420; 81001; 82365; J0131; J0461; J0690; J1100; J1885; J2250; J2405; J2704; J2765; J3010; J7121; Q9967

== ENCOUNTER 2024-01-24 03:16 | Emergency (ER) | payer OTHER ==
[~2024-01-24] VITALS: Ht 185.4 cm; Wt 81.5 kg
[~2024-01-24 03:16] MED LIST changes: -CEFAZOLIN SODIUM 2 GM/20 ML SYR IV SCH; +GENTAMICIN40 MG/1 ML; -IBLOOD GLUCOSE TEST STRIP 1 EA TEST VI PRN; -LACTATED RINGER'S 1,000 ML IV SCH; -LIDOCAINE HCL 1% 5 ML SDV INJ ONE; -METOCLOPRAMIDE HCL 10 MG/2 ML SDV IV PRN; -MORPHINE SULFATE 10 MG/ML VIAL IV PRN; -NALOXONE HCL 0.4 MG SYR IV PRN; -PROCHLORPERAZINE EDISYLATE 10 MG/2 ML VIAL IV PRN; -droPERidol 5 MG/2 ML VIAL IV PRN; -fentaNYL citrate 50 MCG/ML SDV IV PRN; -ondansetron HCL 4 MG/2 ML VIAL IV PRN
--- OUTSIDE RECORDS SUMMARY | 2024-01-24 03:18 | XMS ---
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 Karina VISIT COUNT (12 MO.) [address] [place] [address] Avis Huang (Ashley Ramirez) TOTAL 12 NOTE: Visits indicate total known visits. ED/UCC VISIT TRACKING (12 MO.) 01/24/2024 03:[address] [facility] [place] Emergency COMPLAINT: - URINE PROBLEM 01/20/2024 12:17 [facility] Sal THURMAN (Ashley Ramirez) TYPE: Emergency DIAGNOSES: - Unspecified complication of genitourinary prosthetic device, implant and graft, initial encounter - Altered Mental Status - Urinary Catheter Problem [facility]23 [facility] [place] [facility]Ashley Ramirez[facility] TYPE: Emergency DIAGNOSES: - Breakdown (mechanical) of cystostomy catheter, initial encounter - Penis Pain - Urinary Catheter Problem 12/10/2023 13:45 [facility] [place] [facility]Ashley Ramirez[facility] TYPE: Emergency DIAGNOSES: - Presence of other vascular implants and grafts - Urinary tract infection, site not specified - Vascular Access Problem 12/03/2023 18:21 [facility] [place] TYPE: Emergency COMPLAINT: - WEAKNESS 11/27/2023 12:23 [facility] [place] TYPE: Emergency COMPLAINT: - DIZZINESS 11/22/2023 10:09 [facility] [place] TYPE: Emergency COMPLAINT: - SYNCOPE,POSS HEAD INJURY DIAGNOSES: - Essential (primary) hypertension - Gastro-esophageal reflux disease without esophagitis - terminal operator (current) 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 - terminal operator (current) use of oral hypoglycemic drugs - Nicotine dependence, unspecified, uncomplicated - Other insect allergy status - Other chcf (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 - Syncope and collapse - Type 2 diabetes mellitus without complications - Unspecified atrial fibrillation 09/20/2023 13:47 [facility] [place] TYPE: Emergency COMPLAINT: - CATHETER ISSUE DIAGNOSES: - Bee allergy status - Essential (primary) hypertension - Gastro-esophageal reflux disease without esophagitis - terminal operator (current) 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 - longterm (current) use of oral hypoglycemic drugs - Lower abdominal pain, unspecified - Other 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 - Other specified disorders [...] - Gastro-esophageal reflux disease without esophagitis - terminal operator (current) 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 - terminal operator (current) use of oral hypoglycemic drugs - Nicotine dependence, unspecified, uncomplicated - Other chcf (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 - Presence of urogenital implants - Type 2 diabetes mellitus without complications - Urinary tract infection, site not specified - Weakness 04/30/2023 19:47 [facility] [place] TYPE: Emergency COMPLAINT: - GENTAL PAIN DIAGNOSES: - Bee allergy status - Breakdown (mechanical) of indwelling urethral catheter, initial encounter - Essential (primary) hypertension - terminal operator (current) 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 - Nicotine dependence, unspecified, uncomplicated - Other chcf (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 - Type 2 diabetes mellitus without complications - Urethral disorder, unspecified - Urinary tract infection, site not specified 03/29/2023 21:11 [facility] [place] TYPE: Emergency COMPLAINT: - URINE PROBLEM DIAGNOSES: - Bee allergy status - Benign prostatic hyperplasia with lower urinary tract symptoms - Essential (primary) hypertension - Gastro-esophageal reflux disease without esophagitis - longterm (current) 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 - terminal operator (current) use of oral hypoglycemic drugs - Nicotine dependence, unspecified, uncomplicated - Other 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 - Other retention of [...] - Gastro-esophageal reflux disease without esophagitis - terminal operator (current) 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 - longterm (current) use of oral hypoglycemic drugs - Nicotine dependence, unspecified, uncomplicated - Other chcf (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 - Unspecified osteoarthritis, unspecified site INPATIENT VISIT TRACKING (12 MO.) 12/03/2023 21:32 [facility] [place] TYPE: Medical Surgical COMPLAINT: - UTI DIAGNOSES: - Chronic atrial fibrillation, unspecified - Chronic atrial fibrillation, unspecified - Essential (primary) hypertension - Essential (primary) hypertension - Nicotine dependence, unspecified, uncomplicated - Nicotine dependence, unspecified, uncomplicated - Type 2 diabetes mellitus without complications - Type 2 diabetes mellitus without complications - Unspecified dementia, unspecified severity, without behavioral disturbance, psychotic disturbance, mood disturbance, and anxiety 11/27/2023 15:[address] [facility] [place] TYPE: Medical Surgical COMPLAINT: - UTI DIAGNOSES: - Abdominal aortic aneurysm, without rupture, unspecified - Anxiety disorder, unspecified - Bee allergy status - Benign prostatic hyperplasia with lower urinary tract symptoms - Bladder-neck obstruction - Calculus in bladder - Calculus of ureter - Chronic atrial fibrillation, unspecified - Gastro-esophageal reflux disease without esophagitis - Nicotine dependence, cigarettes, uncomplicated - Other 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 - Other obstructive and reflux uropathy - Other retention of urine - Type 2 diabetes mellitus without complications - Unspecified osteoarthritis, unspecified site - Urinary tract infection, site not specified [email or web address]
[2024-01-24] MEDS ORDERED: LIDOCAINE 2% VISCOUS 6 ML SYR MM ONE (03:30)
[2024-01-24 04:20] LABS: BILIRUBIN, URINE NEGATIVE (negative); BLOOD/HGB, URINE TRACE-I (Negative); KETONE, URINE NEGATIVE (Negative); LEUK ESTERASE, URINE SMALL (negative); NITRITE, URINE POSITIVE (negative)
[2024-01-24 04:25] LABS: EPITHELIAL CELLS, URINE SQUAMOUS 1+ /lpf (0-1+)
[2024-01-24 04:26] LABS: BACTERIA, URINE 1+ /hpf (negative); CASTS, URINE NONE SEEN \\lpf; COLLECTION TYPE, URINE CLEAN CATCH; CRYSTALS, URINE NONE SEEN (0-1+); REFLEX CULTURE, URINE Yes (No); WHITE BLOOD CELLS, URINE >50 /HPF (0-5)
[2024-01-24 04:45] VITALS: BP 136/72
== END 2024-01-24 04:45 | disposition home or self-care (01) ==
LOC: ED 03:16
PROVIDERS: Internal Medicine
DX: T83.091A Other mechanical complication of indwelling urethral catheter, initial encounter (principal); I10 Essential (primary) hypertension; K21.9 Gastro-esophageal reflux disease without esophagitis; E11.9 Type 2 diabetes mellitus without complications; I48.91 Unspecified atrial fibrillation; F17.200 Nicotine dependence, unspecified, uncomplicated; Z79.84 Long term (current) use of oral hypoglycemic drugs; Z79.82 Long term (current) 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; Z79.899 Other long term (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; Z91.030 Bee allergy status
CPT/HCPCS: 51702; 81001; 87088; 99283-25

== ENCOUNTER 2024-01-27 19:22 | Emergency (ER) | payer OTHER ==
[~2024-01-27] VITALS: Ht 185.4 cm; Wt 68.7 kg
--- OUTSIDE RECORDS SUMMARY | 2024-01-27 19:28 | XMS ---
PreManage Notification: TIEN ESPINO Security Science Editor Events No recent Security Events currently on file CRITERIA MET - 6 ED Visits in 6 Months - [facility] - 2 Visits in 30 Days CARE PROVIDERS [facility] Current PHONE: [phone] DWAYNE MILLS Nurse Practitioner Current PHONE: [phone] Anaya has no Care Guidelines for this patient. Karina VISIT COUNT (12 MO.) [address] [place] [address] Avis Huang (Ashley Ramirez) TOTAL 13 NOTE: Visits indicate total known visits. ED/UCC VISIT TRACKING (12 MO.) 01/27/2024 19:22 [facility] [place] TYPE: Emergency COMPLAINT: - ABDOMINAL PAIN 01/24/2024 03:16 [facility] [place] TYPE: Emergency COMPLAINT: - URINE PROBLEM DIAGNOSES: - Bee allergy status - Essential (primary) hypertension - Gastro-esophageal reflux disease without esophagitis - detention (current) 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 - dragger out (current) use of oral hypoglycemic drugs - Nicotine dependence, unspecified, uncomplicated - Other activity aid (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 - Other mechanical complication of indwelling urethral catheter, initial encounter - Other mechanical complication of other urinary catheter, initial encounter - Type 2 diabetes mellitus without complications - Unspecified atrial fibrillation [facility]24 [facility] DIAGNOSES: - Unspecified complication of genitourinary prosthetic device, implant and graft, initial encounter - Altered Mental Status - Urinary Catheter Problem 12/26/2023 20:22 [facility]: Emergency DIAGNOSES: - Breakdown (mechanical) of cystostomy catheter, initial encounter - Penis Pain - Urinary Catheter Problem 12/10/2023 13:45 [facility]: Emergency DIAGNOSES: - Presence of other [...] - Gastro-esophageal reflux disease without esophagitis - detention (current) 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 - dragger out (current) use of oral hypoglycemic drugs - Nicotine dependence, unspecified, uncomplicated - Other insect allergy status - Other senior care (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 - Syncope and collapse - Type 2 diabetes mellitus without complications - Unspecified atrial fibrillation 09/20/2023 13:47 [facility] [place] TYPE: Emergency COMPLAINT: - CATHETER ISSUE DIAGNOSES: - Bee allergy status - Essential (primary) hypertension - Gastro-esophageal reflux disease without esophagitis - detention (current) 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 - detention (current) use of oral hypoglycemic drugs - Lower abdominal pain, unspecified - Other senior care (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 - Other specified disorders [...] - Gastro-esophageal reflux disease without esophagitis - detention (current) 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 - detention (current) use of oral hypoglycemic drugs - Nicotine dependence, unspecified, uncomplicated - Other senior care (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 - Presence of urogenital implants - Type 2 diabetes mellitus without complications - Urinary tract infection, site not specified - Weakness 04/30/2023 19:47 [facility] [place] TYPE: Emergency COMPLAINT: - GENTAL PAIN DIAGNOSES: - Bee allergy status - Breakdown (mechanical) of indwelling urethral catheter, initial encounter - Essential (primary) hypertension - dragger out (current) 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 - Nicotine dependence, unspecified, uncomplicated - Other senior care (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 - Type 2 diabetes mellitus without complications - Urethral disorder, unspecified - Urinary tract infection, site not specified 03/29/2023 21:11 [facility] [place] TYPE: Emergency COMPLAINT: - URINE PROBLEM DIAGNOSES: - Bee allergy status - Benign prostatic hyperplasia with lower urinary tract symptoms - Essential (primary) hypertension - Gastro-esophageal reflux disease without esophagitis - detention (current) 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 - detention (current) use of oral hypoglycemic drugs - Nicotine dependence, unspecified, uncomplicated - Other activity aid (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 - Other retention of [...] - Gastro-esophageal reflux disease without esophagitis - dragger out (current) 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 - dragger out (current) use of oral hypoglycemic drugs - Nicotine dependence, unspecified, uncomplicated - Other senior care (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 - Unspecified osteoarthritis, unspecified [...] disturbance, mood disturbance, and anxiety 11/27/2023 15:41 [facility] [place] TYPE: Medical Surgical COMPLAINT: - UTI DIAGNOSES: - Abdominal aortic aneurysm, without rupture, unspecified - Anxiety disorder, unspecified - Bee allergy status - Benign prostatic hyperplasia with lower urinary tract symptoms - Bladder-neck obstruction - Calculus in bladder - Calculus of ureter - Chronic atrial fibrillation, unspecified - Gastro-esophageal reflux disease without esophagitis - Nicotine dependence, cigarettes, uncomplicated - Other senior care (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 - Other obstructive and reflux uropathy - Other retention of urine - Type 2 diabetes mellitus without complications - Unspecified osteoarthritis, unspecified site - Urinary tract infection, site not specified [email or web address]
[2024-01-27] MEDS ORDERED: MORPHINE SULFATE 4 MG/ML VIAL IV ONE (19:30)
[2024-01-27] MEDS ORDERED: LIDOCAINE 2% VISCOUS 6 ML SYR TOP ONE (19:45)
[2024-01-27] MEDS ORDERED: SODIUM CHLORIDE 0.9% 500 ML IV PRN (19:45)
[2024-01-27 19:57] LABS: BASOPHILS 0.9 % (0-2); EOSINOPHILS 1.3 % (0-6); HEMOGLOBIN 12.8 g/dL (12.0-18.0); LYMPHOCYTES 20.1 % (24-44); MCH 31.5 (27-36); MCHC 34.5 g/dl (30-36); MCV 91.3 fl (81-99); NEUTROPHILS 67.7 % (39-80); PLATELET COUNT 295 K/uL (140-440); RBC 4.06 M/ul (4.3-5.7); RDW 13.4 (10.5-15.0)
[2024-01-27] MEDS ORDERED: LORazepam 2 MG/ML VIAL IV ONE (20:00)
[2024-01-27 20:12] LABS: ALBUMIN 3.3 g/dL (3.4-5.0); ALCOHOL, MEDICAL <3 ng/dL (<3); ALKALINE PHOSPHATASE 59 U/L (46-116); ALT (SGPT) 12 U/L (14-59); ANION GAP 15.9 (7-21); AST (SGOT) 11 U/L (15-37); BUN/CREATININE RATIO 16.51 (6.0-28.6); CALCIUM 9.6 mg/dL (8.5-10.1); CARBON DIOXIDE 24 mmol/L (21-32); CHLORIDE 104 mmol/L (98-107); CREATININE, SERUM 1.09 mg/dL (0.70-1.30); GLOMERULAR FILTRATION RATE,EST 70 mL/min (>60); POTASSIUM 3.9 mmol/L (3.5-5.1); PROTEIN, TOTAL 6.3 g/dL (6.4-8.2); UREA NITROGEN 18 mg/dL (7-18)
[2024-01-27 20:40] LABS: BILIRUBIN, URINE NEGATIVE (negative); BLOOD/HGB, URINE SMALL (Negative); KETONE, URINE SMALL (Negative); LEUK ESTERASE, URINE TRACE (negative); NITRITE, URINE POSITIVE (negative)
[2024-01-27 20:55] LABS: BACTERIA, URINE 1+ /hpf (negative); CASTS, URINE HYALINE 1+ \\lpf; COLLECTION TYPE, URINE CLEAN CATCH; CRYSTALS, URINE CALCIUM OXALATE 1+ (0-1+); EPITHELIAL CELLS, URINE SQUAMOUS 1+ /lpf (0-1+); REFLEX CULTURE, URINE Yes (No)
[2024-01-27] MEDS ORDERED: CEFTRIAXONE/SODIUM CHLORIDE 2 GM/100 ML PIGGYBACK IV ONE (21:30)
[2024-01-27] MEDS ORDERED: CEFDINIR300 MG PO (21:30)
[2024-01-27 22:20] VITALS: BP 128/73
== END 2024-01-27 23:37 | disposition home or self-care (01) ==
LOC: ED 19:22
PROVIDERS: Family Medicine
DX: L03.311 Cellulitis of abdominal wall (principal); N39.0 Urinary tract infection, site not specified; I10 Essential (primary) hypertension; E11.9 Type 2 diabetes mellitus without complications; K21.9 Gastro-esophageal reflux disease without esophagitis; F17.200 Nicotine dependence, unspecified, uncomplicated; Z91.030 Bee allergy status; Z79.82 Long term (current) 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; Z79.84 Long term (current) use of oral hypoglycemic drugs
CPT/HCPCS: 36415; 74177; 80053; 81001; 83690; 85025; 87088; 96375; 99284-25; G0480; J0696; J2060; J7040; Q9967

== ENCOUNTER 2024-01-31 16:45 | Emergency (ER) | payer OTHER ==
[~2024-01-31] VITALS: Ht 185.4 cm; Wt 76.1 kg
--- OUTSIDE RECORDS SUMMARY | 2024-01-31 16:51 | XMS ---
PreManage Notification: TIEN ESPINO Security Remote Control Mirror Installer Events No recent Security Events currently on file CRITERIA MET - 6 ED Visits in 6 Months - [facility] - 2 Visits in 30 Days CARE PROVIDERS -, [facility] Dentist: Inspector Outside Production Current [place] PHONE: [phone] [facility] Current PHONE: [phone] DWAYNE MILLS Nurse Practitioner Current PHONE: [phone] Anaya has no Care Guidelines for this patient. ELoni VISIT COUNT (12 MO.) 11 FELIX Cody 3 [facility]. Avis ChuJamarHildaJamar (Story) TOTAL 14 NOTE: Visits indicate total known visits. ED/UCC VISIT TRACKING (12 MO.) 01/31/2024 16:45 [facility]ELIX Al [place] TYPE: Emergency COMPLAINT: - URINE PROBLEM 01/27/2024 19:22 [facility]IX Al [place] TYPE: Emergency COMPLAINT: - ABDOMINAL PAIN DIAGNOSES: - Bee allergy status - Cellulitis of abdominal wall - Essential (primary) hypertension - Gastro-esophageal reflux disease without esophagitis - terminal operations supervisor (current) 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 - jail (current) use of oral hypoglycemic drugs - Lower abdominal pain, unspecified - Nicotine dependence, unspecified, uncomplicated - Type 2 diabetes mellitus without complications - Urinary tract infection, site not specified 01/24/2024 03:16 FELIX Uriarte TYPE: Emergency COMPLAINT: - URINE PROBLEM DIAGNOSES: - Bee allergy status - Essential (primary) hypertension - Gastro-esophageal reflux disease without esophagitis - terminal operations supervisor (current) 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 - terminal operations supervisor (current) use of oral hypoglycemic drugs - Nicotine dependence, unspecified, uncomplicated - Other terminal block assembler (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 - Other mechanical complication of indwelling urethral catheter, initial encounter - Other mechanical complication of other urinary catheter, initial encounter - Type 2 diabetes mellitus without complications - Unspecified atrial fibrillation [facility] DIAGNOSES: - Unspecified complication of genitourinary prosthetic device, implant and graft, initial encounter - Altered Mental Status - Urinary Catheter Problem 12/26/2023 20[facility]22 [facility] [place] (Ashley Ramirez[facility] TYPE: Emergency DIAGNOSES: - Breakdown (mechanical) of cystostomy catheter, initial encounter - Penis Pain - Urinary Catheter Problem 12/10/2023 13:45 [facility] [place] (Ashley Ramirez[facility] TYPE: Emergency DIAGNOSES: - [...] - jail (current) 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 - jail (current) use of oral hypoglycemic drugs - Nicotine dependence, unspecified, uncomplicated - Other insect allergy status - Other alf (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 - Syncope and collapse - Type 2 diabetes mellitus without complications - Unspecified atrial fibrillation 09/20/2023 13:47 [facility]IX Al [place] TYPE: Emergency COMPLAINT: - CATHETER ISSUE DIAGNOSES: - Bee allergy status - Essential (primary) hypertension - Gastro-esophageal reflux disease without esophagitis - terminal operations supervisor (current) 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 - jail (current) use of oral hypoglycemic drugs - Lower abdominal pain, unspecified - Other alf (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 - Other specified disorders [...] - jail (current) 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 - jail (current) use of oral hypoglycemic drugs - Nicotine dependence, unspecified, uncomplicated - Other alf (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 - Presence of urogenital implants - Type 2 diabetes mellitus without complications - Urinary tract infection, site not specified - Weakness 04/30/2023 19:47 [facility]ELIX Al [place] TYPE: Emergency COMPLAINT: - GENTAL PAIN DIAGNOSES: - Bee allergy status - Breakdown (mechanical) of indwelling urethral catheter, initial encounter - Essential (primary) hypertension - terminal operations supervisor (current) 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 - Nicotine dependence, unspecified, uncomplicated - Other terminal block assembler (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 - Type 2 diabetes mellitus without complications - Urethral disorder, unspecified - Urinary tract infection, site not specified 03/29/2023 21:11 [facility]ELIX Al [place] TYPE: Emergency COMPLAINT: - URINE PROBLEM DIAGNOSES: - Bee allergy status - Benign prostatic hyperplasia with lower urinary tract symptoms - Essential (primary) hypertension - Gastro-esophageal reflux disease without esophagitis - jail (current) 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 - terminal operations supervisor (current) use of oral hypoglycemic drugs - Nicotine dependence, unspecified, uncomplicated - Other alf (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 - Other retention of [...] - jail (current) 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 - jail (current) use of oral hypoglycemic drugs - Nicotine dependence, unspecified, uncomplicated - Other alf (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 - Unspecified osteoarthritis, unspecified [...] - Nicotine dependence, cigarettes, uncomplicated - Other alf (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 - Other obstructive and reflux uropathy - Other retention of urine - Type 2 diabetes mellitus without complications - Unspecified osteoarthritis, unspecified site - Urinary tract infection, site not specified [email or web address]
[2024-01-31] MEDS ORDERED: levoFLOXacin 750 MG TAB PO ONE (17:15)
[2024-01-31] MEDS ORDERED: HYDROCODONE/ACETA 7.5/325 TAB PO ONE (17:15)
[2024-01-31 17:33] LABS: BASOPHILS 0.5 % (0-2); EOSINOPHILS 0.9 % (0-6); HEMOGLOBIN 12.6 g/dL (12.0-18.0); LYMPHOCYTES 11.2 % (24-44); MCH 31.2 (27-36); MCHC 34.1 g/dl (30-36); MCV 91.4 fl (81-99); MONOCYTES 7.7 % (0-12); NEUTROPHILS 79.7 % (39-80); PLATELET COUNT 257 K/uL (140-440); RBC 4.04 M/ul (4.3-5.7); RDW 14.1 (10.5-15.0)
[2024-01-31 17:47] LABS: ALBUMIN 3.2 g/dL (3.4-5.0); ANION GAP 7.8 (7-21); BILIRUBIN, TOTAL 0.5 ng/dL (0.2-1.0); BUN/CREATININE RATIO 21.73 (6.0-28.6); CALCIUM 9.5 mg/dL (8.5-10.1); CREATININE, SERUM 0.92 mg/dL (0.70-1.30); POTASSIUM 3.8 mmol/L (3.5-5.1); PROTEIN, TOTAL 6.4 g/dL (6.4-8.2)
[2024-01-31] MEDS ORDERED: LEVOFLOXACIN750 MG PO (18:32)
[2024-01-31] MEDS ORDERED: HYDROCODON-ACE1 EA10 PO (18:32)
[2024-01-31 18:46] VITALS: BP 119/72
== END 2024-01-31 19:18 | disposition home or self-care (01) ==
LOC: ED 16:45
PROVIDERS: Emergency Medicine
DX: T83.84XA Pain due to genitourinary prosthetic devices, implants and grafts, initial encounter (principal); N39.0 Urinary tract infection, site not specified; I10 Essential (primary) hypertension; K21.9 Gastro-esophageal reflux disease without esophagitis; E11.9 Type 2 diabetes mellitus without complications; I48.91 Unspecified atrial fibrillation; Z79.84 Long term (current) use of oral hypoglycemic drugs; Z79.899 Other long term (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; Z91.030 Bee allergy status
CPT/HCPCS: 36415; 80053; 85025; 99283; A9270

== ENCOUNTER 2024-02-02 11:18 | Emergency (ER) | payer OTHER ==
[~2024-02-02] VITALS: Ht 185.4 cm; Wt 75.3 kg
[~2024-02-02 11:18] MED LIST changes: +HYDROCODON-ACE1 EA10 PO; +LEVOFLOXACIN750 MG PO
--- OUTSIDE RECORDS SUMMARY | 2024-02-02 11:23 | XMS ---
PreManage Notification: TIEN ESPINO Security Food Equipment Service Technician Events No recent Security Events currently on file CRITERIA MET - 6 ED Visits in 6 Months - [facility] - 2 Visits in 30 Days CARE PROVIDERS -, [facility] Dentist: Superintendent Sales Current Malcolm PHONE: [phone] [facility] Current PHONE: [phone] DWAYNE MILLS Nurse Practitioner Current PHONE: [phone] Anaya has no Care Guidelines for this patient. ELoni VISIT COUNT (12 MO.) 12 FELIX Cody 3 [facility] Avis ChuJamarHildaJamar (Ashley Ramirez) TOTAL 15 NOTE: Visits indicate total known visits. ED/UCC VISIT TRACKING (12 MO.) 02/02/2024 11:19 [facility]ELIX Al [place] TYPE: Emergency COMPLAINT: - WEAKNESS 01/31/2024 16:45 [facility] Al [place] TYPE: Emergency COMPLAINT: - URINE PROBLEM DIAGNOSES: - Bee allergy status - Essential (primary) hypertension - Gastro-esophageal reflux disease without esophagitis - shelter (current) use of oral hypoglycemic drugs - Other terminal gauger supervisor (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 - Pain due to genitourinary prosthetic devices, implants and grafts, initial encounter - Type 2 diabetes mellitus without complications - Unspecified atrial fibrillation - Urinary tract infection, site not specified 01/27/2024 19:22 [facility]ELIX Al [place] TYPE: Emergency COMPLAINT: - ABDOMINAL PAIN DIAGNOSES: - Bee allergy status - Cellulitis of abdominal wall - Essential (primary) hypertension - Gastro-esophageal reflux disease without esophagitis - terminal gauger supervisor (current) 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 - terminal gauger supervisor (current) use of oral hypoglycemic drugs - Lower abdominal pain, unspecified - Nicotine dependence, unspecified, uncomplicated - Type 2 diabetes mellitus without complications - Urinary tract infection, site not specified 01/24/2024 03:16 [facility]ELIX Al [place] TYPE: Emergency COMPLAINT: - URINE PROBLEM DIAGNOSES: - Bee allergy status - Essential (primary) hypertension - Gastro-esophageal reflux disease without esophagitis - shelter (current) 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 - terminal gauger supervisor (current) use of oral hypoglycemic drugs - Nicotine dependence, unspecified, uncomplicated - Other care home (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 - Other mechanical complication of indwelling urethral catheter, initial encounter - Other mechanical complication of other urinary catheter, initial encounter - Type 2 diabetes mellitus without complications - Unspecified atrial fibrillation 01/20/2024 12[facility] DIAGNOSES: - Unspecified complication of genitourinary prosthetic device, implant and graft, initial encounter - Altered Mental Status - Urinary Catheter Problem 12/26/2023 20:22 [facility]: Emergency DIAGNOSES: - Breakdown (mechanical) of cystostomy catheter, initial encounter - Penis Pain - Urinary Catheter Problem 12/10/2023 13:45 [facility]Ash[facility] Ramirez[facility] TYPE: Emergency DIAGNOSES: - Presence of other vascular implants and grafts - Urinary tract infection, site not specified - Vascular Access Problem 12/03/2023 18:21 [facility] [place] TYPE: Emergency COMPLAINT: - WEAKNESS 11/27/2023 12:23 FELIX Al [place] TYPE: Emergency COMPLAINT: - DIZZINESS 11/22/2023 10:09 [facility]ELIX Al [place] TYPE: Emergency COMPLAINT: - SYNCOPE,POSS HEAD INJURY DIAGNOSES: - Essential (primary) hypertension - Gastro-esophageal reflux disease without esophagitis - terminal gauger supervisor (current) 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 - terminal gauger supervisor (current) use of oral hypoglycemic drugs [...] - Gastro-esophageal reflux disease without esophagitis - shelter (current) 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 - shelter (current) use of oral hypoglycemic drugs - Lower abdominal pain, unspecified - Other care home (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 - Other specified disorders [...] - Gastro-esophageal reflux disease without esophagitis - shelter (current) 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 - terminal gauger supervisor (current) use of oral hypoglycemic drugs - Nicotine dependence, unspecified, uncomplicated - Other care home (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 - Presence of urogenital implants - Type 2 diabetes mellitus without complications - Urinary tract infection, site not specified - Weakness 04/30/2023 19:47 [facility]ELIX Al [place] TYPE: Emergency COMPLAINT: - GENTAL PAIN DIAGNOSES: - Bee allergy status - Breakdown (mechanical) of indwelling urethral catheter, initial encounter - Essential (primary) hypertension - shelter (current) 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 - Nicotine dependence, unspecified, uncomplicated - Other care home (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 - Type 2 diabetes mellitus without complications - Urethral disorder, unspecified - Urinary tract infection, site not specified 03/29/2023 21:[address] [facility] [place] TYPE: Emergency COMPLAINT: - URINE PROBLEM DIAGNOSES: - Bee allergy status - Benign prostatic hyperplasia with lower urinary tract symptoms - Essential (primary) hypertension - Gastro-esophageal reflux disease without esophagitis - shelter (current) 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 - terminal gauger supervisor (current) use of oral hypoglycemic drugs - Nicotine dependence, unspecified, uncomplicated - Other terminal gauger supervisor (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 - Other retention of urine - Type 2 diabetes mellitus without complications - Unspecified osteoarthritis, unspecified site 03/21/2023 09:33 [facility] [place] TYPE: Emergency COMPLAINT: - POSS UTI, WEAKNESS DIAGNOSES: - Aortic aneurysm of unspecified site, without rupture - Bee allergy status - Bladder-neck obstruction - Chronic atrial fibrillation, unspecified - Contact with and (suspected) exposure to COVID-19 - Dysuria - Essential (primary) hypertension - Gastro-esophageal reflux disease without esophagitis - terminal gauger supervisor (current) 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 - terminal gauger supervisor (current) use of oral hypoglycemic drugs - Nicotine dependence, unspecified, uncomplicated - Other care home (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 - Unspecified osteoarthritis, unspecified [...] - Nicotine dependence, cigarettes, uncomplicated - Other terminal gauger supervisor (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 - Other obstructive and reflux uropathy - Other retention of urine - Type 2 diabetes mellitus without complications - Unspecified osteoarthritis, unspecified site - Urinary tract infection, site not specified [email or web address]
[2024-02-02] MEDS ORDERED: HYDROmorphone HCL 1 MG/ML SYR IV ONE (11:45)
[2024-02-02] MEDS ORDERED: ondansetron HCL 4 MG/2 ML VIAL IV ONE (11:45)
[2024-02-02] MEDS ORDERED: SODIUM CHLORIDE 0.9% 1,000 ML IV ONE ×2 (11:45→13:15)
[2024-02-02 11:50] LABS: BASOPHILS 0.2 % (0-2); EOSINOPHILS 0.8 % (0-6); HEMATOCRIT 35.9 % (35.0-50.0); HEMOGLOBIN 12.5 g/dL (12.0-18.0); MCH 31.5 (27-36); MCHC 34.9 g/dl (30-36); MCV 90.3 fl (81-99); MONOCYTES 10.6 % (0-12); NEUTROPHILS 75.4 % (39-80); PLATELET COUNT 255 K/uL (140-440); RBC 3.97 M/ul (4.3-5.7); RDW 14.1 (10.5-15.0)
[2024-02-02 12:01] LABS: ALBUMIN 3.1 g/dL (3.4-5.0); ALBUMIN/GLOBULIN RATIO 0.94 (1.1-2.4); ANION GAP 12.1 (7-21); BILIRUBIN, TOTAL 0.9 ng/dL (0.2-1.0); BUN/CREATININE RATIO 24.21 (6.0-28.6); CALCIUM 9.8 mg/dL (8.5-10.1); CREATININE, SERUM 0.95 mg/dL (0.70-1.30); POTASSIUM 4.1 mmol/L (3.5-5.1); PROTEIN, TOTAL 6.4 g/dL (6.4-8.2)
[2024-02-02 12:18] LABS: BILIRUBIN, URINE NEGATIVE (negative); BLOOD/HGB, URINE LARGE (Negative); KETONE, URINE NEGATIVE (Negative); LEUK ESTERASE, URINE SMALL (negative); NITRITE, URINE POSITIVE (negative); PH, URINE 6.5 (5-7)
[2024-02-02 12:29] LABS: BACTERIA, URINE 1+ /hpf (negative); CASTS, URINE NONE SEEN \\lpf; COLLECTION TYPE, URINE CLEAN CATCH; CRYSTALS, URINE URIC ACID 1+ (0-1+); REFLEX CULTURE, URINE No (No)
[2024-02-02] MEDS ORDERED: levoFLOXacin 750 MG/150 ML BAG IV ONE (13:00)
[2024-02-02 14:40] VITALS: BP 134/65
[2024-02-03] MEDS ORDERED: LIDOCAINE HCL100 ML TOP (12:15)
== END 2024-02-02 14:40 | disposition home or self-care (01) ==
LOC: ED 11:18
PROVIDERS: Emergency Medicine
DX: N30.90 Cystitis, unspecified without hematuria (principal); I10 Essential (primary) hypertension; K21.9 Gastro-esophageal reflux disease without esophagitis; E11.9 Type 2 diabetes mellitus without complications; N40.0 Benign prostatic hyperplasia without lower urinary tract symptoms; I48.91 Unspecified atrial fibrillation; K57.30 Diverticulosis of large intestine without perforation or abscess without bleeding; I71.9 Aortic aneurysm of unspecified site, without rupture; F17.200 Nicotine dependence, unspecified, uncomplicated; R91.1 Solitary pulmonary nodule; Z96.0 Presence of urogenital implants; Z91.030 Bee allergy status; Z79.2 Long term (current) use of antibiotics; Z79.82 Long term (current) 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; Z79.84 Long term (current) use of oral hypoglycemic drugs; Z79.899 Other long term (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
CPT/HCPCS: 36415; 74176; 80053; 81001; 83690; 85025; 96374; 96375; 99284-25; J1170; J1956; J2405; J7030

== ENCOUNTER 2024-02-03 10:12 | Emergency (ER) | payer OTHER ==
[~2024-02-03] VITALS: Ht 185.4 cm; Wt 78.8 kg
--- OUTSIDE RECORDS SUMMARY | 2024-02-03 10:13 | XMS ---
PreManage Notification: TIEN ESPINO Security Cigarette Paper Tester Events No recent Security Events currently on file CRITERIA MET - 6 ED Visits in 6 Months - [facility] - 2 Visits in 30 Days CARE PROVIDERS -, [facility] Dentist: Accounting Manager Current Malcolm PHONE: [phone] [facility] Current PHONE: [phone] DWAYNE MILLS Nurse Practitioner Current PHONE: [phone] Anaya has no Care Guidelines for this patient. ELoni VISIT COUNT (12 MO.) 13 FELIX Ham Yeso Clinch VladMatthew ([place]) TOTAL 16 NOTE: Visits indicate total known visits. ED/UCC VISIT TRACKING (12 MO.) 02/03/2024 10:12 FELIX Al [place] TYPE: Emergency COMPLAINT: - SOB 02/02/2024 11:19 [facility]ELIX Al [place] TYPE: Emergency COMPLAINT: - WEAKNESS 01/31/2024 16:45 [facility] Al [place] TYPE: Emergency COMPLAINT: - URINE PROBLEM DIAGNOSES: - Bee allergy status - Essential (primary) hypertension - Gastro-esophageal reflux disease without esophagitis - manager long term care (current) use of oral hypoglycemic drugs - Other rn long term care (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 - Pain due to [...] - Gastro-esophageal reflux disease without esophagitis - manager long term care (current) 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 - manager long term care (current) use of oral hypoglycemic drugs - Lower abdominal pain, unspecified - Nicotine dependence, unspecified, uncomplicated - Type 2 diabetes mellitus without complications - Urinary tract infection, site not specified 01/24/2024 03:16 FELIX Al [place] TYPE: Emergency COMPLAINT: - URINE PROBLEM DIAGNOSES: - Bee allergy status - Essential (primary) hypertension - Gastro-esophageal reflux disease without esophagitis - manager long term care (current) 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 - manager long term care (current) use of oral hypoglycemic drugs - Nicotine dependence, unspecified, uncomplicated - Other rn long term care (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 - Other mechanical complication of indwelling urethral catheter, initial encounter - Other mechanical complication of other urinary catheter, initial encounter - Type 2 diabetes mellitus without complications - Unspecified atrial fibrillation 01/20/2024 12:17 [facility] Ashley THURMAN (Ashley Ramirez) TYPE: Emergency DIAGNOSES: - Unspecified complication of genitourinary prosthetic device, implant and graft, initial encounter - Altered Mental Status - Urinary Catheter Problem 12/26/2023 20:22 [facility] Ashley THURMAN (Ashley Ramirez) TYPE: Emergency DIAGNOSES: - Breakdown (mechanical) of cystostomy catheter, initial encounter - Penis Pain - Urinary Catheter Problem 12/10/2023 13:45 [facility] Ashley THURMAN (Ashley Ramirez) TYPE: Emergency DIAGNOSES: - [...] - Gastro-esophageal reflux disease without esophagitis - manager long term care (current) 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 - manager long term care (current) use of oral hypoglycemic drugs - [...] - Gastro-esophageal reflux disease without esophagitis - manager long term care (current) 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 - residential (current) use of oral hypoglycemic drugs - Lower abdominal pain, unspecified - Other rn long term care (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 - Other specified [...] - Gastro-esophageal reflux disease without esophagitis - manager long term care (current) 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 - residential (current) use of oral hypoglycemic drugs - [...] initial encounter - Essential (primary) hypertension - residential (current) 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 - Nicotine dependence, unspecified, uncomplicated - Other rn long term care (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 - Type 2 diabetes mellitus without complications - Urethral disorder, unspecified - Urinary tract infection, site not specified 03/29/2023 21:11 FELIX Al [place] TYPE: Emergency COMPLAINT: - URINE PROBLEM DIAGNOSES: - Bee allergy status - Benign prostatic hyperplasia with lower urinary tract symptoms - Essential (primary) hypertension - Gastro-esophageal reflux disease without esophagitis - manager long term care (current) 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 - residential (current) use of oral hypoglycemic drugs - Nicotine dependence, unspecified, uncomplicated - Other senior care (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 - Other retention of [...] - Gastro-esophageal reflux disease without esophagitis - manager long term care (current) 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 - manager long term care (current) use of oral hypoglycemic drugs - [...] - Urinary tract infection, site not specified [email or web address]
[2024-02-03 10:37] LABS: BASOPHILS 0.4 % (0-2); EOSINOPHILS 0.9 % (0-6); HEMATOCRIT 36.3 % (35.0-50.0); HEMOGLOBIN 12.5 g/dL (12.0-18.0); LYMPHOCYTES 11.5 % (24-44); MCH 31.6 (27-36); MCHC 34.5 g/dl (30-36); MCV 91.7 fl (81-99); MONOCYTES 9.6 % (0-12); NEUTROPHILS 77.6 % (39-80); PLATELET COUNT 234 K/uL (140-440); RBC 3.96 M/ul (4.3-5.7); RDW 13.9 (10.5-15.0)
[2024-02-03] MEDS ORDERED: LIDOCAINE 2% VISCOUS 6 ML SYR TOP ONE (11:00)
[2024-02-03 11:03] LABS: ALBUMIN 2.9 g/dL (3.4-5.0); ALBUMIN/GLOBULIN RATIO 0.88 (1.1-2.4); ANION GAP 12.1 (7-21); BILIRUBIN, TOTAL 0.7 ng/dL (0.2-1.0); BUN/CREATININE RATIO 20.61 (6.0-28.6); CALCIUM 9.5 mg/dL (8.5-10.1); CREATININE, SERUM 0.97 mg/dL (0.70-1.30); MAGNESIUM 1.8 mg/dL (1.8-2.4); POTASSIUM 4.1 mmol/L (3.5-5.1); PROTEIN, TOTAL 6.2 g/dL (6.4-8.2)
[2024-02-03] MEDS ORDERED: LIDOCAINE HCL100 ML TOP (12:15)
[2024-02-03 12:44] VITALS: BP 139/63
--- NOTE | 2024-02-03 18:48 | EKG ---
[facility] [address] [facility] [place] [address] Signed Sinus bradycardia Left axis deviation Nonspecific intraventricular block Anterolateral infarct (cited on or before 22-NOV-2023) Abnormal ECG When compared with ECG of 27-NOV-2023 13:01, Questionable change in initial forces of Anterior leads Confirmed by Lucien Hylton MD ([id number]) on 02/03/2024 6:48:03 PM Electronically Signed By: LUCIEN HYLTON MD 02/03/24 1848 PATIENT NAME: TIEN ESPINO CRISTY Electrocardiogram DATE OF : 47 PHYSICIAN: LUCIEN HYLTON MD REPORT #: [id number] REPORT IS CONFIDENTIAL AND NOT TO BE RELEASED WITHOUT AUTHORIZATION
== END 2024-02-03 12:45 | disposition home or self-care (01) ==
LOC: ED 10:12
PROVIDERS: Emergency Medicine
DX: N48.89 Other specified disorders of penis (principal); E86.0 Dehydration; N39.0 Urinary tract infection, site not specified; I10 Essential (primary) hypertension; E11.9 Type 2 diabetes mellitus without complications; K21.9 Gastro-esophageal reflux disease without esophagitis; Z79.82 Long term (current) 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; Z79.899 Other long term (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; Z79.84 Long term (current) use of oral hypoglycemic drugs
CPT/HCPCS: 36415; 71045; 80053; 83735; 83880; 84484; 85025; 93005; 93010; 99285-25; U0002

== ENCOUNTER 2024-03-15 04:27 | Emergency (ER) | payer OTHER ==
[~2024-03-15] VITALS: Ht 185.4 cm; Wt 77.9 kg
[~2024-03-15 04:27] MED LIST changes: +LIDOCAINE HCL100 ML TOP
--- OUTSIDE RECORDS SUMMARY | 2024-03-15 04:34 | XMS ---
PreManage Notification: TIEN ESPINO Security General Pediatrician Events No recent Security Events currently on file CRITERIA MET - 6 ED Visits in 6 Months CARE PROVIDERS -, [facility] Dentist: Recordist Current [place] PHONE: [phone] [facility] Current PHONE: [phone] DWAYNE MILLS Nurse Practitioner Current PHONE: [phone] Anaya has no Care Guidelines for this patient. ELoni VISIT COUNT (12 MO.) 14 FELIX [place] M.CJamar (Aslhey Ramirez) TOTAL 17 NOTE: Visits indicate total known visits. ED/UCC VISIT TRACKING (12 MO.) 03/15/2024 04:28 FELIX Al [place] TYPE: Emergency COMPLAINT: - GENITAL PAIN 02/03/2024 10:12 FELIX Al [place] TYPE: Emergency COMPLAINT: - SOB DIAGNOSES: - Dehydration - Essential (primary) hypertension - Gastro-esophageal reflux disease without esophagitis - [facility] (current) 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 - ferry terminal agent (current) use of oral hypoglycemic drugs - Other halfway (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 - Other specified disorders of penis - Type 2 diabetes mellitus without complications - Urinary tract infection, site not specified 02/02/2024 11:19 FELIX Al [place] TYPE: Emergency COMPLAINT: - WEAKNESS DIAGNOSES: - Aortic aneurysm of unspecified site, without rupture - Bee allergy status - Benign prostatic hyperplasia without lower urinary tract symptoms - Cystitis, unspecified without hematuria - Diverticulosis of large intestine without perforation or abscess without bleeding - Essential (primary) hypertension - Gastro-esophageal reflux disease without esophagitis - Left lower quadrant pain - ferry terminal agent (current) use of antibiotics - [facility] (current) 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 - [facility] (current) use of oral hypoglycemic drugs - Nicotine dependence, unspecified, uncomplicated - Other halfway (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 - Presence of urogenital implants - Solitary pulmonary nodule - Type 2 diabetes mellitus without complications - Unspecified atrial fibrillation 01/31/2024 16:45 FELIX Al [place] TYPE: Emergency COMPLAINT: - URINE PROBLEM DIAGNOSES: - Bee allergy status - Essential (primary) hypertension - Gastro-esophageal reflux disease without esophagitis - [facility] (current) use of oral hypoglycemic drugs - Other superintendent terminal (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 - Pain due to [...] - Gastro-esophageal reflux disease without esophagitis - [facility] (current) 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 - ferry terminal agent (current) use of oral hypoglycemic drugs - Lower abdominal pain, unspecified - Nicotine dependence, unspecified, uncomplicated - Type 2 diabetes mellitus without complications - Urinary tract infection, site not specified 01/24/2024 03:16 FELIX Uriarte TYPE: Emergency COMPLAINT: - URINE PROBLEM DIAGNOSES: - Bee allergy status - Essential (primary) hypertension - Gastro-esophageal reflux disease without esophagitis - ferry terminal agent (current) 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 - ferry terminal agent (current) use of oral hypoglycemic drugs - Nicotine dependence, unspecified, uncomplicated - Other halfway (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 - Other mechanical complication of indwelling urethral catheter, initial encounter - Other mechanical complication of other urinary catheter, initial encounter - Type 2 diabetes mellitus without complications - Unspecified atrial fibrillation 01/20/2024 12:17 [facility] Ashley THURMAN (Ashley Ramirez) TYPE: Emergency DIAGNOSES: - Unspecified complication of genitourinary prosthetic device, implant and graft, initial encounter - Altered Mental Status - Urinary Catheter Problem 12/26/2023 20:22 [facility] Ashley THURMAN (Ashley Ramirez) TYPE: Emergency DIAGNOSES: - Breakdown (mechanical) of cystostomy catheter, initial encounter - Penis Pain - Urinary Catheter Problem 12/10/2023 13:45 [facility] Ashley THURMAN (Ashley Ramirez) TYPE: Emergency DIAGNOSES: - Presence of other vascular implants and grafts - Urinary tract infection, site not specified - Vascular Access Problem 12/03/2023 18:21 [facility]ELIX Al [place] TYPE: Emergency COMPLAINT: - WEAKNESS 11/27/2023 12:[address] [facility] [place] TYPE: Emergency COMPLAINT: - DIZZINESS 11/22/2023 10:[address] [facility] [place] TYPE: Emergency COMPLAINT: - SYNCOPE,POSS HEAD INJURY DIAGNOSES: - Essential (primary) hypertension - Gastro-esophageal reflux disease without esophagitis - [facility] (current) 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 - ferry terminal agent (current) use of oral hypoglycemic drugs - Nicotine dependence, unspecified, uncomplicated - Other insect allergy status - Other superintendent terminal (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 - Syncope and collapse - Type 2 diabetes mellitus without complications - Unspecified atrial fibrillation 09/20/2023 13:47 [facility] [place] [place] TYPE: Emergency COMPLAINT: - CATHETER ISSUE DIAGNOSES: - Bee allergy status - Essential (primary) hypertension - Gastro-esophageal reflux disease without esophagitis - [facility] (current) 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 - [facility] (current) use of oral hypoglycemic drugs - Lower abdominal pain, unspecified - Other halfway (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 - Other specified disorders [...] - Gastro-esophageal reflux disease without esophagitis - [facility] (current) 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 - ferry terminal agent (current) use of oral hypoglycemic drugs - Nicotine dependence, unspecified, uncomplicated - Other superintendent terminal (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 - Presence of urogenital implants - Type 2 diabetes mellitus without complications - Urinary tract infection, site not specified - Weakness 04/30/2023 19:47 FELIX lA [place] TYPE: Emergency COMPLAINT: - GENTAL PAIN DIAGNOSES: - Bee allergy status - Breakdown (mechanical) of indwelling urethral catheter, initial encounter - Essential (primary) hypertension - ferry terminal agent (current) 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 - Nicotine dependence, unspecified, uncomplicated - Other halfway (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 - Type 2 diabetes mellitus without complications - Urethral disorder, unspecified - Urinary tract infection, site not specified 03/29/2023 21:11 [facility]ELIX Al [place] TYPE: Emergency COMPLAINT: - URINE PROBLEM DIAGNOSES: - Bee allergy status - Benign prostatic hyperplasia with lower urinary tract symptoms - Essential (primary) hypertension - Gastro-esophageal reflux disease without esophagitis - [facility] (current) 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 - [facility] (current) use of oral hypoglycemic drugs - Nicotine dependence, unspecified, uncomplicated - Other halfway (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 - Other retention of [...] - Gastro-esophageal reflux disease without esophagitis - ferry terminal agent (current) 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 - ferry terminal agent (current) use of oral hypoglycemic drugs - Nicotine dependence, unspecified, uncomplicated - Other halfway (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 - Unspecified osteoarthritis, unspecified [...] - Nicotine dependence, cigarettes, uncomplicated - Other halfway (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 - Other obstructive and reflux uropathy - Other retention of urine - Type 2 diabetes mellitus without complications - Unspecified osteoarthritis, unspecified site - Urinary tract infection, site not specified [email or web address]
[2024-03-15] MEDS ORDERED: LIDOCAINE 2% VISCOUS 6 ML SYR TOP ONE (05:00)
[2024-03-15] MEDS ORDERED: MORPHINE SULFATE 10 MG/ML VIAL IM ONE (05:00)
[2024-03-15 05:31] LABS: BILIRUBIN, URINE NEGATIVE (negative); BLOOD/HGB, URINE SMALL (Negative); KETONE, URINE NEGATIVE (Negative); LEUK ESTERASE, URINE SMALL (negative); NITRITE, URINE NEGATIVE (negative)
[2024-03-15 05:48] LABS: BACTERIA, URINE 1+ /hpf (negative); CASTS, URINE HYALINE 1+ \\lpf; COLLECTION TYPE, URINE CLEAN CATCH; CRYSTALS, URINE CALCIUM OXALATE 1+ (0-1+); EPITHELIAL CELLS, URINE SQUAMOUS 1+ /lpf (0-1+); REFLEX CULTURE, URINE Yes (No)
[2024-03-15] MEDS ORDERED: PYRIDIUM200 MG PO (06:00)
[2024-03-15 06:15] VITALS: BP 107/69
== END 2024-03-15 06:15 | disposition home or self-care (01) ==
LOC: ED 04:27
PROVIDERS: Family Medicine
DX: N39.0 Urinary tract infection, site not specified (principal); I10 Essential (primary) hypertension; E11.9 Type 2 diabetes mellitus without complications; F03.90 Unspecified dementia, unspecified severity, without behavioral disturbance, psychotic disturbance, mood disturbance, and anxiety; K21.9 Gastro-esophageal reflux disease without esophagitis; Z91.030 Bee allergy status; Z79.899 Other long term (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; Z79.82 Long term (current) 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; Z79.84 Long term (current) use of oral hypoglycemic drugs
CPT/HCPCS: 51798; 81001; 87077; 87088; 87186; 96372; 99283-25; J2270

== ENCOUNTER 2024-04-02 01:22 | Emergency (ER) | payer OTHER ==
[~2024-04-02] VITALS: Ht 185.4 cm; Wt 75.0 kg
[~2024-04-02 01:22] MED LIST changes: +PYRIDIUM200 MG PO
--- OUTSIDE RECORDS SUMMARY | 2024-04-02 01:29 | XMS ---
PreManage Notification: TIEN ESPINO Security Snow Removal Supervisor Events No recent Security Events currently on file CRITERIA MET - 6 ED Visits in 6 Months - [facility] - 2 Visits in 30 Days CARE PROVIDERS -, [facility]: Service Tester Current Malcolm PHONE: [phone] [facility] Emergency [facility] Current PHONE: [phone] DWAYNE MILLS Nurse Practitioner Current PHONE: [phone] Anaya has no Care Guidelines for this patient. ELoni VISIT COUNT (12 MO.) 13 FELIX Cody 3 [facility]. Avis ChuJamarHildaJamar ([place]) TOTAL 16 NOTE: Visits indicate total known visits. ED/UCC VISIT TRACKING (12 MO.) 04/02/2024 01:23 FELIX Al [place] TYPE: Emergency COMPLAINT: - PAIN GENITALS 03/15/2024 04:28 [facility]ELIX Al [place] TYPE: Emergency COMPLAINT: - GENITAL PAIN DIAGNOSES: - Bee allergy status - Essential (primary) hypertension - Gastro-esophageal reflux disease without esophagitis - terminal carman (current) 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 - terminal carman (current) use of oral hypoglycemic drugs - Other termite treater helper (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 - Type 2 diabetes mellitus without complications - Unspecified dementia, unspecified severity, without behavioral disturbance, psychotic disturbance, mood disturbance, and anxiety - Unspecified renal colic - Urinary tract infection, site not specified 02/03/2024 10:12 FELIX Al [place] TYPE: Emergency COMPLAINT: - SOB DIAGNOSES: - Dehydration - Essential (primary) hypertension - Gastro-esophageal reflux disease without esophagitis - terminal carman (current) 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 - terminal carman (current) use of oral hypoglycemic drugs - Other fci (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 - Other specified disorders [...] esophagitis - Left lower quadrant pain - residential (current) use of antibiotics - residential (current) 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 - terminal carman (current) use of oral hypoglycemic drugs - Nicotine dependence, unspecified, uncomplicated - Other termite treater helper (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 - Presence of urogenital implants - Solitary pulmonary nodule - Type 2 diabetes mellitus without complications - Unspecified atrial fibrillation 01/31/2024 16:45 FELIX Al [place] TYPE: Emergency COMPLAINT: - URINE PROBLEM DIAGNOSES: - Bee allergy status - Essential (primary) hypertension - Gastro-esophageal reflux disease without esophagitis - terminal carman (current) use of oral hypoglycemic drugs - Other termite treater helper (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 - Pain due to [...] - Gastro-esophageal reflux disease without esophagitis - residential (current) 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 - residential (current) use of oral hypoglycemic drugs - Lower abdominal pain, unspecified - Nicotine dependence, unspecified, uncomplicated - Type 2 diabetes mellitus without complications - Urinary tract infection, site not specified 01/24/2024 03:16 FELIX Al [place] TYPE: Emergency COMPLAINT: - URINE PROBLEM DIAGNOSES: - Bee allergy status - Essential (primary) hypertension - Gastro-esophageal reflux disease without esophagitis - residential (current) 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 - terminal carman (current) use of oral hypoglycemic drugs - Nicotine dependence, unspecified, uncomplicated - Other fci (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 - Other mechanical complication of indwelling urethral catheter, initial encounter - Other mechanical complication of other urinary catheter, initial encounter - Type 2 diabetes mellitus without complications - Unspecified atrial fibrillation 01/20/2024 12:17 [facility] Ashley THURMAN (Ashley Ramirez) TYPE: Emergency DIAGNOSES: - Unspecified complication of genitourinary prosthetic device, implant and graft, initial encounter - Altered Mental Status - Urinary Catheter Problem 12/26/2023 20:22 [facility] Ashley THURMAN (Ashley Ramirez) TYPE: Emergency DIAGNOSES: - Breakdown (mechanical) of cystostomy catheter, initial encounter - Penis Pain - Urinary Catheter Problem 12/10/2023 13:45 [facility] [place] OLMAN Ramirez) TYPE: Emergency DIAGNOSES: - Presence of other vascular implants and grafts - Urinary tract infection, site not specified - Vascular Access Problem 12/03/2023 18:21 FELIX Uriarte TYPE: Emergency COMPLAINT: - WEAKNESS 11/27/2023 12:23 FELIX Uriarte TYPE: Emergency COMPLAINT: - DIZZINESS 11/22/2023 10:09 FELIX Al [place] TYPE: Emergency COMPLAINT: - SYNCOPE,POSS HEAD INJURY DIAGNOSES: - Essential (primary) hypertension - Gastro-esophageal reflux disease without esophagitis - terminal carman (current) 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 - terminal carman (current) use of oral hypoglycemic drugs - Nicotine dependence, unspecified, uncomplicated - Other insect allergy status - Other termite treater helper (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 - Syncope and collapse - Type 2 diabetes mellitus without complications - Unspecified atrial fibrillation 09/20/2023 13:47 FELIX Al [place] TYPE: Emergency COMPLAINT: - CATHETER ISSUE DIAGNOSES: - Bee allergy status - Essential (primary) hypertension - Gastro-esophageal reflux disease without esophagitis - residential (current) 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 - terminal carman (current) use of oral hypoglycemic drugs - Lower abdominal pain, unspecified - Other fci (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 - Other specified disorders [...] - Gastro-esophageal reflux disease without esophagitis - residential (current) 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 - residential (current) use of oral hypoglycemic drugs - Nicotine dependence, unspecified, uncomplicated - Other fci (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 - Presence of urogenital [...] - Nicotine dependence, unspecified, uncomplicated - Other termite treater helper (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 - Type 2 diabetes mellitus without complications - Urethral disorder, unspecified - Urinary tract infection, site not specified INPATIENT VISIT TRACKING (12 MO.) 12/03/2023 21:32 [...] - Nicotine dependence, cigarettes, uncomplicated - Other termite treater helper (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 - Other obstructive and reflux uropathy - Other retention of urine - Type 2 diabetes mellitus without complications - Unspecified osteoarthritis, unspecified site - Urinary tract infection, site not specified [email or web address]
[2024-04-02] MEDS ORDERED: NITROFURANTOIN100 M1 PO (01:45)
[2024-04-02] MEDS ORDERED: ATENOLOL50 MG PO (01:47)
[2024-04-02] MEDS ORDERED: PHENAZOPYRIDIN200 MG PO (01:47)
[2024-04-02] MEDS ORDERED: HYDROmorphone HCL 1 MG/ML SYR IV PRN (02:45)
[2024-04-02] MEDS ORDERED: ondansetron HCL 4 MG/2 ML VIAL IV ONE (02:45)
[2024-04-02 02:52] LABS: EOSINOPHILS 6.3 % (0-6); HEMATOCRIT 39.8 % (35.0-50.0); HEMOGLOBIN 13.5 g/dL (12.0-18.0); LYMPHOCYTES 19.2 % (24-44); MCH 31.8 (27-36); MCV 93.5 fl (81-99); MONOCYTES 9.2 % (0-12); NEUTROPHILS 64.3 % (39-80); PLATELET COUNT 263 K/uL (140-440); RBC 4.25 M/ul (4.3-5.7); RDW 13.7 (10.5-15.0)
[2024-04-02 03:05] LABS: ALBUMIN 3.6 g/dL (3.4-5.0); ALBUMIN/GLOBULIN RATIO 1.13 (1.1-2.4); BILIRUBIN, TOTAL 0.3 ng/dL (0.2-1.0); BUN/CREATININE RATIO 20.93 (6.0-28.6); CALCIUM 9.7 mg/dL (8.5-10.1); CREATININE, SERUM 0.86 mg/dL (0.70-1.30); PROTEIN, TOTAL 6.8 g/dL (6.4-8.2)
[2024-04-02 03:50] LABS: BILIRUBIN, URINE NEGATIVE (negative); BLOOD/HGB, URINE MODERATE (Negative); KETONE, URINE NEGATIVE (Negative); LEUK ESTERASE, URINE SMALL (negative); NITRITE, URINE POSITIVE (negative)
[2024-04-02 03:54] LABS: EPITHELIAL CELLS, URINE SQUAMOUS 1+ /lpf (0-1+)
[2024-04-02 03:55] LABS: WHITE BLOOD CELLS, URINE 21-40 /HPF (0-5)
[2024-04-02 03:56] LABS: BACTERIA, URINE 4+ /hpf (negative); CRYSTALS, URINE CALCIUM OXALATE 1+ (0-1+)
[2024-04-02 03:57] LABS: CASTS, URINE GRANULAR 2+ \\lpf; COLLECTION TYPE, URINE CLEAN CATCH; REFLEX CULTURE, URINE Yes (No)
[2024-04-02] MEDS ORDERED: OXYCODONE/ACETAMINOPHEN 1 TAB HOME.PACK PO ONE (04:45)
[2024-04-02] MEDS ORDERED: PERCOCET 5-3251 EACH PO (04:47)
[2024-04-02 05:16] VITALS: BP 142/76
== END 2024-04-02 05:10 | disposition home or self-care (01) ==
LOC: ED 01:22
PROVIDERS: Emergency Medicine
DX: R10.32 Left lower quadrant pain (principal); I10 Essential (primary) hypertension; E11.9 Type 2 diabetes mellitus without complications; K21.9 Gastro-esophageal reflux disease without esophagitis; F03.90 Unspecified dementia, unspecified severity, without behavioral disturbance, psychotic disturbance, mood disturbance, and anxiety; Z91.030 Bee allergy status; Z79.82 Long term (current) 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; Z79.84 Long term (current) use of oral hypoglycemic drugs; Z79.899 Other long term (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
CPT/HCPCS: 36415; 51798; 74177; 80053; 81001; 83690; 85025; 87088; 87186; 93971; 96375; 99284-25; J1171; J2405; Q9967

== ENCOUNTER 2024-07-17 11:43 | Emergency (ER) | payer OTHER, MEDICARE ==
[~2024-07-17] VITALS: Ht 185.4 cm; Wt 76.2 kg
[~2024-07-17 11:43] MED LIST changes: +PHENAZOPYRIDIN200 MG PO
--- OUTSIDE RECORDS SUMMARY | 2024-07-17 11:50 | XMS ---
PreManage Notification: TIEN SEPINO Security Junior Data Analyst Events No recent Security Events currently on file CRITERIA MET - 6 ED Visits in 6 Months - [facility] - 2 Visits in 30 Days CARE PROVIDERS -, [facility]ist: [employer] Humanities Teacher Current Malcolm PHONE: [phone] [facility] Emergency [facility] Current PHONE: [phone] DWAYNE MILLS Nurse Practitioner Current PHONE: [phone] Anaya has no Care Guidelines for this patient. ELoni VISIT COUNT (12 MO.) 12 [facility] TOTAL 16 NOTE: Visits indicate total known visits. ED/UCC VISIT TRACKING (12 MO.) 07/17/2024 11:44 FELIX Al [place] TYPE: Emergency COMPLAINT: - DIZZY 07/07/2024 11:40 [facility] ([facility]ley Ramirez[facility] TYPE: Emergency DIAGNOSES: - Bradycardia, unspecified - Dizziness - low HR, low BP,dizziness - Weakness 04/02/2024 01:23 FELIX Al [place] TYPE: Emergency COMPLAINT: - PAIN GENITALS DIAGNOSES: - Bee allergy status - Essential (primary) hypertension - Gastro-esophageal reflux disease without esophagitis - Left lower quadrant pain - equipment operator intermodal yard (current) 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 - group home (current) use of oral hypoglycemic drugs - Other custodial (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 - Type 2 diabetes mellitus without complications - Unspecified dementia, unspecified severity, without behavioral disturbance, psychotic disturbance, mood disturbance, and anxiety 03/15/2024 04:28 FELIX Uriarte TYPE: Emergency COMPLAINT: - GENITAL PAIN DIAGNOSES: - Bee allergy status - Essential (primary) hypertension - Gastro-esophageal reflux disease without esophagitis - group home (current) 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 - group home (current) use of oral hypoglycemic drugs - 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 - Type 2 diabetes mellitus without complications - Unspecified dementia, unspecified severity, without behavioral disturbance, psychotic disturbance, mood disturbance, and anxiety - Unspecified renal colic - Urinary tract infection, site not specified 02/03/2024 10:12 FELIX Al [place] TYPE: Emergency COMPLAINT: - SOB DIAGNOSES: - Dehydration - Essential (primary) hypertension - Gastro-esophageal reflux disease without esophagitis - group home (current) 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 - group home (current) use of oral hypoglycemic drugs - Other custodial (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 - Other specified disorders [...] esophagitis - Left lower quadrant pain - group home (current) use of antibiotics - group home (current) 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 - group home (current) use of oral hypoglycemic drugs - Nicotine dependence, unspecified, uncomplicated - 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 - Presence of urogenital implants - Solitary pulmonary nodule - Type 2 diabetes mellitus without complications - Unspecified atrial fibrillation 01/31/2024 16:45 FELIX Al [place] TYPE: Emergency COMPLAINT: - URINE PROBLEM DIAGNOSES: - Bee allergy status - Essential (primary) hypertension - Gastro-esophageal reflux disease without esophagitis - group home (current) use of oral hypoglycemic drugs - 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 - Pain due [...] - Gastro-esophageal reflux disease without esophagitis - equipment operator intermodal yard (current) 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 - group home (current) use of oral hypoglycemic drugs - Lower abdominal pain, unspecified - Nicotine dependence, unspecified, uncomplicated - Type 2 diabetes mellitus without complications - Urinary tract infection, site not specified 01/24/2024 03:16 FELIX Al [place] TYPE: Emergency COMPLAINT: - URINE PROBLEM DIAGNOSES: - Bee allergy status - Essential (primary) hypertension - Gastro-esophageal reflux disease without esophagitis - equipment operator intermodal yard (current) 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 - equipment operator intermodal yard (current) use of oral hypoglycemic drugs - Nicotine dependence, unspecified, uncomplicated - Other custodial (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 - Other mechanical complication of indwelling urethral catheter, initial encounter - Other mechanical complication of other urinary catheter, initial encounter - Type 2 diabetes mellitus without complications - Unspecified atrial fibrillation [facility]20[facility]2024 12[facility] [place] [place] [facility] DIAGNOSES: - Unspecified complication of genitourinary prosthetic device, implant and graft, initial encounter - Altered Mental Status - Urinary Catheter Problem 12/26/2023 20:22 [facility] [place] [facility] Ramirez[facility] TYPE: Emergency DIAGNOSES: - Breakdown (mechanical) of cystostomy catheter, initial encounter - Penis Pain - Urinary Catheter Problem 12/10/2023 13:45 [facility] [place] [facility]Ashley Ramirez[facility] TYPE: Emergency DIAGNOSES: - Presence of other vascular implants and grafts - Urinary tract infection, site not specified - Vascular Access Problem 12/03/2023 18:21 FELIX Uriarte TYPE: Emergency COMPLAINT: - WEAKNESS 11/27/2023 12:[address] [facility] [place] TYPE: Emergency COMPLAINT: - DIZZINESS 11/22/2023 10:09 FELIX Orantesjuan francisco HdzJ[facility] [place] TYPE: Emergency COMPLAINT: - SYNCOPE,POSS HEAD INJURY DIAGNOSES: - Essential (primary) hypertension - Gastro-esophageal reflux disease without esophagitis - group home (current) 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 - group home (current) use of oral hypoglycemic drugs - Nicotine dependence, unspecified, uncomplicated - Other insect allergy status - Other custodial (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 - Syncope and collapse - Type 2 diabetes mellitus without complications - Unspecified atrial fibrillation 09/20/2023 13:47 FELIX Diaz AndreinaJamar [place] TYPE: Emergency COMPLAINT: - CATHETER ISSUE DIAGNOSES: - Bee allergy status - Essential (primary) hypertension - Gastro-esophageal reflux disease without esophagitis - equipment operator intermodal yard (current) 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 - group home (current) use of oral hypoglycemic drugs - Lower abdominal pain, unspecified - 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 - Other specified disorders of penis - Presence of urogenital implants - Type 2 diabetes mellitus without complications - Unspecified osteoarthritis, unspecified site INPATIENT VISIT [...] - Nicotine dependence, cigarettes, uncomplicated - 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 - Other obstructive and reflux uropathy - Other retention of urine - Type 2 diabetes mellitus without complications - Unspecified osteoarthritis, unspecified site - Urinary tract infection, site not specified [email or web address]
[2024-07-17] MEDS ORDERED: CITALOPRAM HBR10 MG PO (12:08)
[2024-07-17] MEDS ORDERED: OXYBUTYNIN CHLO10 MG PO (12:08)
[2024-07-17] MEDS ORDERED: MEMANTINE HCL5 MG PO (12:09)
[2024-07-17 13:01] LABS: BASOPHILS 0.3 % (0-2); EOSINOPHILS 0.2 % (0-6); HEMATOCRIT 37.7 % (35.0-50.0); LYMPHOCYTES 11.2 % (24-44); MCH 31.7 (27-36); MCHC 34.4 g/dl (30-36); NEUTROPHILS 80.3 % (39-80); PLATELET COUNT 231 K/uL (140-440); RBC 4.09 M/ul (4.3-5.7); RDW 14.3 (10.5-15.0)
[2024-07-17 13:20] LABS: ALBUMIN 3.3 g/dL (3.4-5.0); ALBUMIN/GLOBULIN RATIO 1.03 (1.1-2.4); ANION GAP 10.1 (7-21); BILIRUBIN, TOTAL 0.5 mg/dL (0.2-1.0); BUN/CREATININE RATIO 15.74 (6.0-28.6); CALCIUM 9.8 mg/dL (8.5-10.1); CREATININE, SERUM 1.08 mg/dL (0.70-1.30); POTASSIUM 4.1 mmol/L (3.5-5.1); PROTEIN, TOTAL 6.5 g/dL (6.4-8.2)
[2024-07-17 14:10] VITALS: BP 142/86
--- NOTE | 2024-07-17 19:14 | EKG ---
[facility] [address] [facility] [place] [address] Signed Sinus rhythm with 1st degree AV block Left axis deviation ST elevation in Inferior leads Nonspecific intraventricular block Possible Anterolateral infarct (cited on or before 22-NOV-2023) Abnormal ECG When compared with ECG of 03-FEB-2024 10:50, [place] interval has increased Questionable change in initial forces of Lateral leads ST elevation now present in Inferior leads Confirmed by Jessica Hylton MD ([id number]) on 07/17/2024 7:13:58 PM Electronically Signed By: JESSICA HYLTON MD 07/17/241913 PATIENT NAME: TIEN ESPINO Electrocardiogram DATE OF : 47 PHYSICIAN: JESSICA HYLTON MD REPORT #: [id number] REPORT IS CONFIDENTIAL AND NOT TO BE RELEASED WITHOUT AUTHORIZATION
== END 2024-07-17 14:10 | disposition home or self-care (01) ==
LOC: ED 11:43
PROVIDERS: Emergency Medicine
DX: R42 Dizziness and giddiness (principal); I10 Essential (primary) hypertension; E11.9 Type 2 diabetes mellitus without complications; F03.90 Unspecified dementia, unspecified severity, without behavioral disturbance, psychotic disturbance, mood disturbance, and anxiety; K21.9 Gastro-esophageal reflux disease without esophagitis; F17.200 Nicotine dependence, unspecified, uncomplicated; Z91.030 Bee allergy status; Z79.82 Long term (current) 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; Z79.84 Long term (current) use of oral hypoglycemic drugs; Z79.899 Other long term (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
CPT/HCPCS: 36415; 80053; 84484; 85025; 93005; 93010; 99284

== ENCOUNTER 2024-07-26 16:21 | Emergency (ER) | payer OTHER, MEDICARE ==
[~2024-07-26] VITALS: Ht 185.4 cm; Wt 77.6 kg
[~2024-07-26 16:21] MED LIST changes: +CITALOPRAM HBR10 MG PO; +MEMANTINE HCL5 MG PO
--- OUTSIDE RECORDS SUMMARY | 2024-07-26 16:28 | XMS ---
PreManage Notification: TIEN ESPINO Security Stone Layout Marker Events No recent Security Events currently on file CRITERIA MET - 6 ED Visits in 6 Months - [facility] - 2 Visits in 30 Days CARE PROVIDERS -, [facility]ist: Press Manager Current Malcolm PHONE: [phone] [facility] Current PHONE: [phone] DWAYNE MILLS Nurse Practitioner Current PHONE: [phone] Anaya has no Care Guidelines for this patient. ELoni VISIT COUNT (12 MO.) 13 FELIX [place] MMatthew (Ashley Ramirez) TOTAL 17 NOTE: Visits indicate total known visits. ED/UCC VISIT TRACKING (12 MO.) 07/26/2024 16:22 FELIX Al [place] TYPE: Emergency COMPLAINT: - SYNCOPE 07/17/2024 11:44 FELIX Al [place] TYPE: Emergency COMPLAINT: - GENITAL PROBLEM DIAGNOSES: - Bee allergy status - Dizziness and giddiness - Essential (primary) hypertension - Gastro-esophageal reflux disease without esophagitis - briquette machine operator helper (current) 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 - briquette machine operator helper (current) use of oral hypoglycemic drugs - Nicotine dependence, unspecified, uncomplicated - Other mcc (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 - Type 2 diabetes mellitus without complications - Unspecified dementia, unspecified severity, without behavioral disturbance, psychotic disturbance, mood disturbance, and anxiety 07/07/2024 11:40 [facility]: Emergency DIAGNOSES: - Bradycardia, unspecified - Dizziness - low HR, low BP,dizziness - Weakness 04/02/2024 01:[address] [facility] [place] TYPE: Emergency COMPLAINT: - PAIN GENITALS DIAGNOSES: - Bee allergy status - Essential (primary) hypertension - Gastro-esophageal reflux disease without esophagitis - Left lower quadrant pain - alf (current) 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 - alf (current) use of oral hypoglycemic drugs - Other church communications administrator (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 - Type 2 diabetes mellitus without complications - Unspecified dementia, unspecified severity, without behavioral disturbance, psychotic disturbance, mood disturbance, and anxiety 03/15/2024 04:28 FELIX Al [place] TYPE: Emergency COMPLAINT: - GENITAL PAIN DIAGNOSES: - Bee allergy status - Essential (primary) hypertension - Gastro-esophageal reflux disease without esophagitis - alf (current) 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 - briquette machine operator helper (current) use of oral hypoglycemic drugs - Other church communications administrator (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 - Type 2 diabetes mellitus without complications - Unspecified dementia, unspecified severity, without behavioral disturbance, psychotic disturbance, mood disturbance, and anxiety - Unspecified renal colic - Urinary tract infection, site not specified 02/03/2024 10:12 FELIX Al [place] TYPE: Emergency COMPLAINT: - SOB DIAGNOSES: - Dehydration - Essential (primary) hypertension - Gastro-esophageal reflux disease without esophagitis - briquette machine operator helper (current) 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 - alf (current) use of oral hypoglycemic drugs - Other church communications administrator (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 - Other specified disorders [...] esophagitis - Left lower quadrant pain - alf (current) use of antibiotics - alf (current) 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 - briquette machine operator helper (current) use of oral hypoglycemic drugs - Nicotine dependence, unspecified, uncomplicated - Other church communications administrator (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 - Presence of urogenital implants - Solitary pulmonary nodule - Type 2 diabetes mellitus without complications - Unspecified atrial fibrillation 01/31/2024 16:45 FELIX Al OR TYPE: Emergency COMPLAINT: - URINE PROBLEM DIAGNOSES: - Bee allergy status - Essential (primary) hypertension - Gastro-esophageal reflux disease without esophagitis - alf (current) use of oral hypoglycemic drugs - Other church communications administrator (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 - Pain due to [...] - alf (current) 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 - briquette machine operator helper (current) use of oral hypoglycemic drugs - Lower abdominal pain, unspecified - Nicotine dependence, unspecified, uncomplicated - Type 2 diabetes mellitus without complications - Urinary tract infection, site not specified 01/24/2024 03:16 FELIX Al [place] TYPE: Emergency COMPLAINT: - URINE PROBLEM DIAGNOSES: - Bee allergy status - Essential (primary) hypertension - Gastro-esophageal reflux disease without esophagitis - alf (current) 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 - briquette machine operator helper (current) use of oral hypoglycemic drugs - Nicotine dependence, unspecified, uncomplicated - Other mcc (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 - Other mechanical complication of indwelling urethral catheter, initial encounter - Other mechanical complication of other urinary catheter, initial encounter - Type 2 diabetes mellitus without complications - Unspecified atrial fibrillation 01/20/2024 12:17 [facility] Ashley THURMAN ([place]) TYPE: Emergency DIAGNOSES: - Unspecified complication of genitourinary prosthetic device, implant and graft, initial encounter - Altered Mental Status - Urinary Catheter Problem 12/26/2023 20:22 [facility] Ashley THURMAN ([place]) TYPE: Emergency DIAGNOSES: - Breakdown (mechanical) of cystostomy catheter, initial encounter - Penis Pain - Urinary Catheter Problem 12/10/2023 13:45 [facility]Ashley Ramirez[facility] TYPE: Emergency DIAGNOSES: - [...] - Gastro-esophageal reflux disease without esophagitis - briquette machine operator helper (current) 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 - alf (current) use of oral hypoglycemic drugs - Nicotine dependence, unspecified, uncomplicated - Other insect allergy status - Other mcc (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 - Syncope and collapse - Type 2 diabetes mellitus without complications - Unspecified atrial fibrillation 09/20/2023 13:47 FELIX Al [place] TYPE: Emergency COMPLAINT: - CATHETER ISSUE DIAGNOSES: - Bee allergy status - Essential (primary) hypertension - Gastro-esophageal reflux disease without esophagitis - briquette machine operator helper (current) 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 - briquette machine operator helper (current) use of oral hypoglycemic drugs - Lower abdominal pain, unspecified - Other mcc (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 - Other specified disorders [...] - Nicotine dependence, cigarettes, uncomplicated - Other church communications administrator (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 - Other obstructive and reflux uropathy - Other retention of urine - Type 2 diabetes mellitus without complications - Unspecified osteoarthritis, unspecified site - Urinary tract infection, site not specified [email or web address]
[2024-07-26] MEDS ORDERED: LIDOCAINE HCL100 ML MT (16:30)
[2024-07-26] MEDS ORDERED: PHENAZOPYRIDIN100 MG PO (16:30)
[2024-07-26 17:17] VITALS: BP 147/73
== END 2024-07-26 17:17 | disposition home or self-care (01) ==
LOC: ED 16:21
DX: Z04.3 Encounter for examination and observation following other accident (principal); N48.89 Other specified disorders of penis; G89.29 Other chronic pain; I10 Essential (primary) hypertension; E11.9 Type 2 diabetes mellitus without complications; K21.9 Gastro-esophageal reflux disease without esophagitis; I48.91 Unspecified atrial fibrillation; F03.90 Unspecified dementia, unspecified severity, without behavioral disturbance, psychotic disturbance, mood disturbance, and anxiety; F17.200 Nicotine dependence, unspecified, uncomplicated; Z93.50 Unspecified cystostomy status; Z91.030 Bee allergy status; Z79.82 Long term (current) 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; Z79.84 Long term (current) use of oral hypoglycemic drugs; Z79.899 Other long term (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
CPT/HCPCS: 99284

== ENCOUNTER 2024-08-20 05:11 | Emergency (ER) | payer OTHER, MEDICARE ==
[~2024-08-20] VITALS: Ht 185.4 cm; Wt 76.6 kg
[~2024-08-20 05:11] MED LIST changes: +LIDOCAINE HCL100 ML MT
--- OUTSIDE RECORDS SUMMARY | 2024-08-20 05:18 | XMS ---
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 - 2 Visits in 30 Days CARE PROVIDERS -, [facility] Dentist: Dining Room Host/Hostess Current Malcolm PHONE: [phone] [facility] Current PHONE: [phone] DWAYNE MILLS Nurse Practitioner Current PHONE: [phone] Anaya has no Care Guidelines for this patient. ELoni VISIT COUNT (12 MO.) [address] [facility] VladMatthew (Ashley Ramirez) TOTAL 18 NOTE: Visits indicate total known visits. ED/UCC VISIT TRACKING (12 MO.) 08/20/2024 05:12 FELIX Al [place] TYPE: Emergency COMPLAINT: - WEAKNESS 07/26/2024 16:22 FELIX Al [place] TYPE: Emergency COMPLAINT: - SYNCOPE DIAGNOSES: - Bee allergy status - Encounter for examination and observation following other accident - Essential (primary) hypertension - Gastro-esophageal reflux disease without esophagitis - director long term care (current) 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 - snf (current) use of oral hypoglycemic drugs - Nicotine dependence, unspecified, uncomplicated - Other chronic pain - Other assisted (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 - Other specified disorders of penis - Type 2 diabetes mellitus without complications - Unspecified atrial fibrillation - Unspecified cystostomy status - Unspecified dementia, unspecified severity, without behavioral disturbance, psychotic disturbance, mood disturbance, and anxiety 07/17/2024 11:44 FELIX Uriarte TYPE: Emergency COMPLAINT: - GENITAL PROBLEM DIAGNOSES: - Bee allergy status - Dizziness and giddiness - Essential (primary) hypertension - Gastro-esophageal reflux disease without esophagitis - snf (current) 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 - snf (current) use of oral hypoglycemic drugs - Nicotine dependence, unspecified, uncomplicated - Other assisted (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 - Type 2 diabetes mellitus without complications - Unspecified dementia, unspecified severity, without behavioral disturbance, psychotic disturbance, mood disturbance, and anxiety 07/07/2024 11:40 [facility] Avis THURMAN (Ashley Ramirez) TYPE: Emergency DIAGNOSES: - Bradycardia, unspecified - Dizziness - low HR, low BP,dizziness - Weakness 04/02/2024 01:23 FELIX Orantesjuan francisco HdzJamar Fowler [place] TYPE: Emergency COMPLAINT: - PAIN GENITALS DIAGNOSES: - Bee allergy status - Essential (primary) hypertension - Gastro-esophageal reflux disease without esophagitis - Left lower quadrant pain - snf (current) 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 - director long term care (current) use of oral hypoglycemic drugs - Other assisted (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 - Type 2 diabetes mellitus without complications - Unspecified dementia, unspecified severity, without behavioral disturbance, psychotic disturbance, mood disturbance, and anxiety 03/15/2024 04:28 FELIX Al [place] TYPE: Emergency COMPLAINT: - GENITAL PAIN DIAGNOSES: - Bee allergy status - Essential (primary) hypertension - Gastro-esophageal reflux disease without esophagitis - snf (current) 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 - director long term care (current) use of oral hypoglycemic drugs - Other assisted (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 - Type 2 diabetes mellitus without complications - Unspecified dementia, unspecified severity, without behavioral disturbance, psychotic disturbance, mood disturbance, and anxiety - Unspecified renal colic - Urinary tract infection, site not specified 02/03/2024 10:12 FELIX Al [place] TYPE: Emergency COMPLAINT: - SOB DIAGNOSES: - Dehydration - Essential (primary) hypertension - Gastro-esophageal reflux disease without esophagitis - director long term care (current) 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 - director long term care (current) use of oral hypoglycemic drugs - Other terminal operations supervisor (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 - Other specified disorders [...] esophagitis - Left lower quadrant pain - snf (current) use of antibiotics - snf (current) 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 - director long term care (current) use of oral hypoglycemic drugs - Nicotine dependence, unspecified, uncomplicated - Other assisted (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 - Presence of urogenital implants - Solitary pulmonary nodule - Type 2 diabetes mellitus without complications - Unspecified atrial fibrillation 01/31/2024 16:45 FELIX Al [place] TYPE: Emergency COMPLAINT: - URINE PROBLEM DIAGNOSES: - Bee allergy status - Essential (primary) hypertension - Gastro-esophageal reflux disease without esophagitis - director long term care (current) use of oral hypoglycemic drugs - Other terminal operations supervisor (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 - Pain due [...] - Gastro-esophageal reflux disease without esophagitis - snf (current) 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 - snf (current) use of oral hypoglycemic drugs - Lower abdominal pain, unspecified - Nicotine dependence, unspecified, uncomplicated - Type 2 diabetes mellitus without complications - Urinary tract infection, site not specified 01/24/2024 03:16 FELIX Uriarte TYPE: Emergency COMPLAINT: - URINE PROBLEM DIAGNOSES: - Bee allergy status - Essential (primary) hypertension - Gastro-esophageal reflux disease without esophagitis - snf (current) 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 - snf (current) use of oral hypoglycemic drugs - Nicotine dependence, unspecified, uncomplicated - Other terminal operations supervisor (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 - Other mechanical complication of indwelling urethral catheter, initial encounter - Other mechanical complication of other urinary catheter, initial encounter - Type 2 diabetes mellitus without complications - Unspecified atrial fibrillation [facility]/20[facility]24 12[facility]ley Ramirez[facility]: [facility] DIAGNOSES: - Unspecified complication of genitourinary prosthetic device, implant and graft, initial encounter - Altered Mental Status - Urinary Catheter Problem 12[facility]26[facility]2023 [facility]: Emergency DIAGNOSES: - Breakdown (mechanical) of cystostomy catheter, initial encounter - Penis Pain - Urinary Catheter Problem 12/10/2023 13:45 [facility] Ashley THURMAN ([place]) TYPE: Emergency DIAGNOSES: - Presence of other vascular implants and grafts - Urinary tract infection, site not specified - Vascular Access Problem 12/03/2023 18:21 FELIX Al [place] TYPE: Emergency COMPLAINT: - WEAKNESS 11/27/2023 12:23 FELIX Cody [place] TYPE: Emergency COMPLAINT: - DIZZINESS 11/22/2023 10:09 [place] [place] TYPE: Emergency COMPLAINT: - SYNCOPE,POSS HEAD INJURY DIAGNOSES: - Essential (primary) hypertension - Gastro-esophageal reflux disease without esophagitis - director long term care (current) 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 - snf (current) use of oral hypoglycemic drugs - Nicotine dependence, unspecified, uncomplicated - Other insect allergy status - Other terminal operations supervisor (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 - Syncope and collapse - Type 2 diabetes mellitus without complications - Unspecified atrial fibrillation 09/20/2023 13:[address] [facility] [place] TYPE: Emergency COMPLAINT: - CATHETER ISSUE DIAGNOSES: - Bee allergy status - Essential (primary) hypertension - Gastro-esophageal reflux disease without esophagitis - snf (current) 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 - director long term care (current) use of oral hypoglycemic drugs - Lower abdominal pain, unspecified - Other terminal operations supervisor (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 - Other specified disorders [...] Nicotine dependence, cigarettes, uncomplicated - Other terminal operations supervisor (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 - Other obstructive and reflux uropathy - Other retention of urine - Type 2 diabetes mellitus without complications - Unspecified osteoarthritis, unspecified site - Urinary tract infection, site not specified [email or web address]
[2024-08-20] MEDS ORDERED: PROBIOTIC1 EAC8 PO (05:27)
[2024-08-20] MEDS ORDERED: ACIDOPHILUS1 EACH PO (05:32)
[2024-08-20 05:38] LABS: BASOPHILS 0.3 % (0-2); EOSINOPHILS 0.8 % (0-6); HEMATOCRIT 34.3 % (35.0-50.0); HEMOGLOBIN 11.9 g/dL (12.0-18.0); LYMPHOCYTES 10.4 % (24-44); MCH 31.7 (27-36); MCHC 34.7 g/dl (30-36); MCV 91.2 fl (81-99); MONOCYTES 8.8 % (0-12); NEUTROPHILS 79.7 % (39-80); PLATELET COUNT 256 K/uL (140-440); RBC 3.75 M/ul (4.3-5.7); RDW 14.3 (10.5-15.0)
[2024-08-20 05:53] LABS: ALBUMIN 3.4 g/dL (3.4-5.0); ALBUMIN/GLOBULIN RATIO 1.03 (1.1-2.4); ANION GAP 11.7 (7-21); BILIRUBIN, TOTAL 0.6 mg/dL (0.2-1.0); BUN/CREATININE RATIO 21.34 (6.0-28.6); CREATININE, SERUM 0.89 mg/dL (0.70-1.30); POTASSIUM 3.7 mmol/L (3.5-5.1); PROTEIN, TOTAL 6.7 g/dL (6.4-8.2)
[2024-08-20 06:14] LABS: BILIRUBIN, URINE POSITIVE (negative); BLOOD/HGB, URINE LARGE (Negative); KETONE, URINE TRACE (Negative); LEUK ESTERASE, URINE SMALL (negative); NITRITE, URINE POSITIVE (negative); PH, URINE 5.5 (5-7)
[2024-08-20 06:21] LABS: CASTS, URINE NONE SEEN \\lpf; CRYSTALS, URINE NONE SEEN (0-1+); EPITHELIAL CELLS, URINE SQUAMOUS 1+ /lpf (0-1+); WHITE BLOOD CELLS, URINE >50 /HPF (0-5)
[2024-08-20 06:22] LABS: BACTERIA, URINE 3+ /hpf (negative); COLLECTION TYPE, URINE CLEAN CATCH; REFLEX CULTURE, URINE Yes (No)
[2024-08-20] MEDS ORDERED: CEFTRIAXONE SODIUM 2 GM VIAL ONE (06:42)
[2024-08-20] MEDS ORDERED: CEFTRIAXONE SODIUM 2 GM in SODIUM CHLORIDE 0.9% 100 ML IV ONE (07:00)
[2024-08-20] MEDS ORDERED: CONSTULOSE10 GM/15 M PO (07:21)
[2024-08-20] MEDS ORDERED: LEVOFLOXACIN500 MG PO (07:21)
[2024-08-20 08:23] VITALS: BP 142/72
== END 2024-08-20 08:23 | disposition home or self-care (01) ==
LOC: ED 05:11
PROVIDERS: Family Medicine
DX: J18.9 Pneumonia, unspecified organism (principal); N39.0 Urinary tract infection, site not specified; I10 Essential (primary) hypertension; K21.9 Gastro-esophageal reflux disease without esophagitis; E11.9 Type 2 diabetes mellitus without complications; I48.91 Unspecified atrial fibrillation; F17.200 Nicotine dependence, unspecified, uncomplicated; Z79.82 Long term (current) 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; Z79.84 Long term (current) use of oral hypoglycemic drugs; Z79.899 Other long term (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; Z91.030 Bee allergy status
CPT/HCPCS: 36415; 51702; 71275; 74174; 80053; 81001; 83880; 84484; 85025; 87077; 87088; 87186; 99284-25; A4311; J0696; Q9967

== ENCOUNTER 2024-09-08 13:17 | Emergency (ER) | payer OTHER, MEDICARE ==
[~2024-09-08] VITALS: Ht 185.4 cm; Wt 76.6 kg
[~2024-09-08 13:17] MED LIST changes: +ACIDOPHILUS1 EACH PO; +CONSTULOSE10 GM/15 M PO; +LEVOFLOXACIN500 MG PO; +PROBIOTIC1 EAC8 PO
--- OUTSIDE RECORDS SUMMARY | 2024-09-08 13:24 | XMS ---
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 ELoni VISIT COUNT (12 MO.) 15 FELIX Phelpsnce [place] MJamarHildaJamar ([place]) TOTAL 19 NOTE: Visits indicate total known visits. ED/UCC VISIT TRACKING (12 MO.) 09/08/2024 13:18 FELIX Al [place] TYPE: Emergency COMPLAINT: - ABDOMINAL PAIN 08/20/2024 05:12 FELIX Al [place] TYPE: Emergency COMPLAINT: - WEAKNESS DIAGNOSES: - Bee allergy status - Constipation, unspecified - Essential (primary) hypertension - Gastro-esophageal reflux disease without esophagitis - superintendent terminal (current) 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 - superintendent terminal (current) use of oral hypoglycemic drugs - Lower abdominal pain, unspecified - Nicotine dependence, unspecified, uncomplicated - Other residential (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 - Pneumonia, unspecified organism - Type 2 diabetes mellitus without complications - Unspecified atrial fibrillation - Unspecified osteoarthritis, unspecified site - Urinary tract infection, site not specified 07/26/2024 16:22 FELIX Al [place] TYPE: Emergency COMPLAINT: - SYNCOPE DIAGNOSES: - Bee allergy status - Encounter for examination and observation following other accident - Essential (primary) hypertension - Gastro-esophageal reflux disease without esophagitis - detention (current) 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 - detention (current) use of oral hypoglycemic drugs - Nicotine dependence, unspecified, uncomplicated - Other chronic pain - Other ferry terminal agent (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 - Other specified disorders of penis - Type 2 diabetes mellitus without complications - Unspecified atrial fibrillation - Unspecified cystostomy status - Unspecified dementia, unspecified severity, without behavioral disturbance, psychotic disturbance, mood disturbance, and anxiety 07/17/2024 11:44 FELIX Al [place] TYPE: Emergency COMPLAINT: - GENITAL PROBLEM DIAGNOSES: - Bee allergy status - Dizziness and giddiness - Essential (primary) hypertension - Gastro-esophageal reflux disease without esophagitis - superintendent terminal (current) 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 - superintendent terminal (current) use of oral hypoglycemic drugs - Nicotine dependence, unspecified, uncomplicated - Other ferry terminal agent (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 - Type 2 diabetes mellitus without complications - Unspecified dementia, unspecified severity, without behavioral disturbance, psychotic disturbance, mood disturbance, and anxiety 07/07/2024 11:40 [facility] Ashley THURMAN (Ashley Ramirez) TYPE: Emergency DIAGNOSES: - Bradycardia, unspecified - Dizziness - low HR, low BP,dizziness - Weakness 04/02/2024 01:23 FELIX Al [place] TYPE: Emergency COMPLAINT: - PAIN GENITALS DIAGNOSES: - Bee allergy status - Essential (primary) hypertension - Gastro-esophageal reflux disease without esophagitis - Left lower quadrant pain - detention (current) 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 - detention (current) use of oral hypoglycemic drugs - Other ferry terminal agent (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 - Type 2 diabetes mellitus without complications - Unspecified dementia, unspecified severity, without behavioral disturbance, psychotic disturbance, mood disturbance, and anxiety 03/15/2024 04:28 FELIX Al [place] TYPE: Emergency COMPLAINT: - GENITAL PAIN DIAGNOSES: - Bee allergy status - Essential (primary) hypertension - Gastro-esophageal reflux disease without esophagitis - superintendent terminal (current) 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 - superintendent terminal (current) use of oral hypoglycemic drugs - Other residential (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 - Type 2 diabetes mellitus without complications - Unspecified dementia, unspecified severity, without behavioral disturbance, psychotic disturbance, mood disturbance, and anxiety - Unspecified renal colic - Urinary tract infection, site not specified 02/03/2024 10:12 FELIX Al [place] TYPE: Emergency COMPLAINT: - SOB DIAGNOSES: - Dehydration - Essential (primary) hypertension - Gastro-esophageal reflux disease without esophagitis - superintendent terminal (current) 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 - detention (current) use of oral hypoglycemic drugs - Other ferry terminal agent (current) drug [...] esophagitis - Left lower quadrant pain - detention (current) use of antibiotics - superintendent terminal (current) 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 - detention (current) use of oral hypoglycemic drugs - Nicotine dependence, unspecified, uncomplicated - Other residential (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 - Presence of urogenital implants - Solitary pulmonary nodule - Type 2 diabetes mellitus without complications - Unspecified atrial fibrillation 01/31/2024 16:45 FELIX Al [place] TYPE: Emergency COMPLAINT: - URINE PROBLEM DIAGNOSES: - Bee allergy status - Essential (primary) hypertension - Gastro-esophageal reflux disease without esophagitis - superintendent terminal (current) use of oral hypoglycemic drugs - Other residential (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 - Pain due to [...] - Gastro-esophageal reflux disease without esophagitis - superintendent terminal (current) 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 - superintendent terminal (current) use of oral hypoglycemic drugs - Nicotine dependence, unspecified, uncomplicated - Other residential (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 - Other mechanical complication of indwelling urethral catheter, initial encounter - Other mechanical complication of other urinary catheter, initial encounter - Type 2 diabetes mellitus without complications - Unspecified atrial fibrillation 01/20/2024 12:17 [facility] Ashley THURMAN (Ashley Ramirez) TYPE: Emergency DIAGNOSES: - Unspecified complication of genitourinary prosthetic device, implant and graft, initial encounter - Altered Mental Status - Urinary Catheter Problem 12/26/2023 20:22 [facility] Ashley THURMAN (Ashley Ramirez) TYPE: Emergency DIAGNOSES: - Breakdown (mechanical) of cystostomy catheter, initial encounter - Penis Pain - Urinary Catheter Problem 12/10/2023 13:45 [facility] Ashley THURMAN (Ashley Ramirez) TYPE: Emergency DIAGNOSES: [...] - Gastro-esophageal reflux disease without esophagitis - superintendent terminal (current) 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 - superintendent terminal (current) use of oral hypoglycemic drugs - Nicotine dependence, unspecified, uncomplicated - Other insect allergy status - Other residential (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 - Syncope and collapse - Type 2 diabetes mellitus without complications - Unspecified atrial fibrillation 09/20/2023 13:47 FELIX Al [place] TYPE: Emergency COMPLAINT: - CATHETER ISSUE DIAGNOSES: - Bee allergy status - Essential (primary) hypertension - Gastro-esophageal reflux disease without esophagitis - detention (current) 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 - superintendent terminal (current) use of oral hypoglycemic drugs - Lower abdominal pain, unspecified - Other residential (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 - Other specified disorders of penis - Presence of urogenital implants - Type 2 diabetes mellitus without complications - Unspecified osteoarthritis, unspecified site INPATIENT VISIT TRACKING (12 MO.) 09/05/2024 07:11 [facility] TYPE: Internal Medicine DIAGNOSES: - Aneurysm of the descending thoracic aorta, without rupture 12/03/2023 21:32 FELIX Al [place] TYPE: Medical [...] - Nicotine dependence, cigarettes, uncomplicated - Other residential (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 - Other obstructive and reflux uropathy - Other retention of urine - Type 2 diabetes mellitus without complications - Unspecified osteoarthritis, unspecified site - Urinary tract infection, site not specified [email or web address]
[2024-09-08 14:09] LABS: BASOPHILS 0.2 % (0-2); EOSINOPHILS 0.1 % (0-6); HEMATOCRIT 29.8 % (35.0-50.0); HEMOGLOBIN 10.2 g/dL (12.0-18.0); MCH 30.4 (27-36); MCHC 34.4 g/dl (30-36); MCV 88.5 fl (81-99); MONOCYTES 13.7 % (0-12); PLATELET COUNT 177 K/uL (140-440); RBC 3.36 M/ul (4.3-5.7); RDW 13.9 (10.5-15.0)
[2024-09-08 14:10] LABS: BACTERIA, URINE 2+ /hpf (negative); CASTS, URINE NONE SEEN \\lpf; COLLECTION TYPE, URINE CLEAN CATCH; CRYSTALS, URINE NONE SEEN (0-1+); EPITHELIAL CELLS, URINE 0 /lpf (0-1+); REFLEX CULTURE, URINE Yes (No)
[2024-09-08 14:27] LABS: ALBUMIN 2.6 g/dL (3.4-5.0); ALBUMIN/GLOBULIN RATIO 0.84 (1.1-2.4); ANION GAP 8.4 (7-21); BILIRUBIN, TOTAL 0.8 mg/dL (0.2-1.0); BUN/CREATININE RATIO 22.5 (6.0-28.6); CREATININE, SERUM 0.8 mg/dL (0.70-1.30); POTASSIUM 3.4 mmol/L (3.5-5.1); PROTEIN, TOTAL 5.7 g/dL (6.4-8.2)
[2024-09-08 16:36] VITALS: BP 118/58
[2024-09-09] MEDS ORDERED: CLOPIDOGREL75 MG PO (18:07)
== END 2024-09-08 17:43 | disposition home or self-care (01) ==
LOC: ED 13:17
PROVIDERS: Emergency Medicine
DX: R10.9 Unspecified abdominal pain (principal); F03.90 Unspecified dementia, unspecified severity, without behavioral disturbance, psychotic disturbance, mood disturbance, and anxiety; I10 Essential (primary) hypertension; K21.9 Gastro-esophageal reflux disease without esophagitis; N40.0 Benign prostatic hyperplasia without lower urinary tract symptoms; I48.91 Unspecified atrial fibrillation; F17.200 Nicotine dependence, unspecified, uncomplicated; Z93.50 Unspecified cystostomy status; Z91.030 Bee allergy status; Z79.82 Long term (current) 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; Z79.84 Long term (current) use of oral hypoglycemic drugs; Z79.899 Other long term (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
CPT/HCPCS: 36415; 74177; 80053; 81001; 85025; 87088; 99284-25

== ENCOUNTER 2024-09-09 15:50 | Emergency (ER) | payer OTHER, MEDICARE ==
[~2024-09-09] VITALS: Ht 185.4 cm; Wt 73.0 kg
--- OUTSIDE RECORDS SUMMARY | 2024-09-09 15:57 | XMS ---
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 ELoni VISIT COUNT (12 MO.) [address] [facility] VladMatthew ([place]) TOTAL 20 NOTE: Visits indicate total known visits. ED/UCC VISIT TRACKING (12 MO.) 09/09/2024 15:51 FELIX Al [place] TYPE: Emergency COMPLAINT: - CHEST PAIN 09/08/2024 13:18 FELIX Al [place] TYPE: Emergency COMPLAINT: - ABDOMINAL PAIN 08/20/2024 05:12 FELIX Al [place] TYPE: Emergency COMPLAINT: - WEAKNESS DIAGNOSES: - Bee allergy status - Constipation, unspecified - Essential (primary) hypertension - Gastro-esophageal reflux disease without esophagitis - retirement (current) 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 - terminal manager (current) use of oral hypoglycemic drugs - Lower abdominal pain, unspecified - Nicotine dependence, unspecified, uncomplicated - Other extermination inspector (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 - Pneumonia, unspecified organism [...] - Gastro-esophageal reflux disease without esophagitis - retirement (current) 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 - terminal manager (current) use of oral hypoglycemic drugs - Nicotine dependence, unspecified, uncomplicated - Other chronic pain - Other extermination inspector (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 - Other specified disorders [...] - Gastro-esophageal reflux disease without esophagitis - retirement (current) 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 - terminal manager (current) use of oral hypoglycemic drugs - Nicotine dependence, unspecified, uncomplicated - Other detention (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 - Type 2 diabetes mellitus without complications - Unspecified dementia, unspecified severity, without behavioral disturbance, psychotic disturbance, mood disturbance, and anxiety 07/07/2024 11:40 [facility] Ashley THURMAN (Ashley Ramirez) TYPE: Emergency DIAGNOSES: - Bradycardia, unspecified - Dizziness - low HR, low BP,dizziness - Weakness 04/02/2024 01:23 FELIX Al [place] TYPE: Emergency COMPLAINT: - PAIN GENITALS DIAGNOSES: - Bee allergy status - Essential (primary) hypertension - Gastro-esophageal reflux disease without esophagitis - Left lower quadrant pain - retirement (current) 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 - retirement (current) use of oral hypoglycemic drugs - Other detention (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 - Type 2 diabetes mellitus without complications - Unspecified dementia, unspecified severity, without behavioral disturbance, psychotic disturbance, mood disturbance, and anxiety 03/15/2024 04:28 FELIX Al [place] TYPE: Emergency COMPLAINT: - GENITAL PAIN DIAGNOSES: - Bee allergy status - Essential (primary) hypertension - Gastro-esophageal reflux disease without esophagitis - terminal manager (current) 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 - retirement (current) use of oral hypoglycemic drugs - Other extermination inspector (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 - Type 2 diabetes mellitus without complications - Unspecified dementia, unspecified severity, without behavioral disturbance, psychotic disturbance, mood disturbance, and anxiety - Unspecified renal colic - Urinary tract infection, site not specified 02/03/2024 10:12 FELIX Al [place] TYPE: Emergency COMPLAINT: - SOB DIAGNOSES: - Dehydration - Essential (primary) hypertension - Gastro-esophageal reflux disease without esophagitis - retirement (current) 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 - terminal manager (current) use of oral hypoglycemic drugs - Other extermination inspector (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 - Other specified disorders [...] esophagitis - Left lower quadrant pain - retirement (current) use of antibiotics - retirement (current) 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 - terminal manager (current) use of oral hypoglycemic drugs - Nicotine dependence, unspecified, uncomplicated - Other extermination inspector (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 - Presence of urogenital implants - Solitary pulmonary nodule - Type 2 diabetes mellitus without complications - Unspecified atrial fibrillation 01/31/2024 16:45 FELIX Al [place] TYPE: Emergency COMPLAINT: - URINE PROBLEM DIAGNOSES: - Bee allergy status - Essential (primary) hypertension - Gastro-esophageal reflux disease without esophagitis - terminal manager (current) use of oral hypoglycemic drugs - Other extermination inspector (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 - Pain due to [...] - Gastro-esophageal reflux disease without esophagitis - retirement (current) 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 - retirement (current) use of oral hypoglycemic drugs - Lower abdominal pain, unspecified - Nicotine dependence, unspecified, uncomplicated - Type 2 diabetes mellitus without complications - Urinary tract infection, site not specified 01/24/2024 03:16 FELIX Al [place] TYPE: Emergency COMPLAINT: - URINE PROBLEM DIAGNOSES: - Bee allergy status - Essential (primary) hypertension - Gastro-esophageal reflux disease without esophagitis - terminal manager (current) 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 - terminal manager (current) use of oral hypoglycemic drugs - Nicotine dependence, unspecified, uncomplicated - Other detention (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 - Other mechanical complication of indwelling urethral catheter, initial encounter - Other mechanical complication of other urinary catheter, initial encounter - Type 2 diabetes mellitus without complications - Unspecified atrial fibrillation 01/20/2024 12:17 [facility] Ashley THURMAN ([place]) TYPE: Emergency DIAGNOSES: - Unspecified complication of genitourinary prosthetic device, implant and graft, initial encounter - Altered Mental Status - Urinary Catheter Problem 12/26/2023 20:22 [facility] Ashley THURMAN ([place]) TYPE: Emergency DIAGNOSES: - Breakdown (mechanical) of cystostomy catheter, initial encounter - Penis Pain - Urinary Catheter Problem 12/10/2023 13[facility]: Emergency DIAGNOSES: - [...] Gastro-esophageal reflux disease without esophagitis - terminal manager (current) 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 - retirement (current) use of oral hypoglycemic drugs - Nicotine dependence, unspecified, uncomplicated - Other insect allergy status - Other detention (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 - Syncope and collapse - Type 2 diabetes mellitus without complications - Unspecified atrial fibrillation 09/20/2023 13:47 FELIX Al [place] TYPE: Emergency COMPLAINT: - CATHETER ISSUE DIAGNOSES: - Bee allergy status - Essential (primary) hypertension - Gastro-esophageal reflux disease without esophagitis - retirement (current) 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 - terminal manager (current) use of oral hypoglycemic drugs - Lower abdominal pain, unspecified - Other detention (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 - Other specified disorders of penis - Presence of urogenital implants - Type 2 diabetes mellitus without complications - Unspecified osteoarthritis, unspecified site INPATIENT VISIT TRACKING (12 MO.) 09/05/2024 07:11 [facility] TYPE: Internal Medicine DIAGNOSES: - Aneurysm [...] - Nicotine dependence, cigarettes, uncomplicated - Other detention (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 - Other obstructive and reflux uropathy - Other retention of urine - Type 2 diabetes mellitus without complications - Unspecified osteoarthritis, unspecified site - Urinary tract infection, site not specified [email or web address]
[2024-09-09 16:07] LABS: BASOPHILS 0.4 % (0-2); EOSINOPHILS 0.5 % (0-6); HEMATOCRIT 30.2 % (35.0-50.0); HEMOGLOBIN 10.5 g/dL (12.0-18.0); LYMPHOCYTES 11.8 % (24-44); MCH 30.9 (27-36); MCHC 34.7 g/dl (30-36); MCV 89.1 fl (81-99); MONOCYTES 12.1 % (0-12); NEUTROPHILS 75.2 % (39-80); PLATELET COUNT 199 K/uL (140-440); RBC 3.39 M/ul (4.3-5.7); RDW 13.6 (10.5-15.0)
[2024-09-09 16:15] LABS: INR 1.24 (0.80-1.30); PROTIME 14.9 Sec (11.2-14.2)
[2024-09-09 16:27] LABS: ALBUMIN 2.8 g/dL (3.4-5.0); ALBUMIN/GLOBULIN RATIO 0.82 (1.1-2.4); ANION GAP 9.4 (7-21); BILIRUBIN, TOTAL 0.6 mg/dL (0.2-1.0); BUN/CREATININE RATIO 22.09 (6.0-28.6); CALCIUM 9.2 mg/dL (8.5-10.1); CREATININE, SERUM 0.86 mg/dL (0.70-1.30); POTASSIUM 3.4 mmol/L (3.5-5.1); PROTEIN, TOTAL 6.2 g/dL (6.4-8.2)
[2024-09-09] MEDS ORDERED: CLOPIDOGREL75 MG PO (18:07)
[2024-09-09 19:00] VITALS: BP 131/57
--- NOTE | 2024-09-10 10:58 | EKG ---
[facility] [address] [facility] [place] [address] Signed Sinus rhythm with premature supraventricular complexes Right bundle branch block Left anterior fascicular block Bifascicular block Anterolateral infarct (cited on or before 22-NOV-2023) Abnormal ECG When compared with ECG of 17-JUL-2024 12:47, premature supraventricular complexes are now present [place] interval has decreased Questionable change in initial forces of Lateral leads Confirmed by Nathan Ojeda DO ([id number]) on 09/10/2024 10:58:20 AM Electronically Signed By: NATHAN OJEDA DO 09/10/24 1058 PATIENT NAME: TIEN ESPINO Electrocardiogram DATE OF : 47 PHYSICIAN: NATHAN OJEDA DO REPORT #: [id number] REPORT IS CONFIDENTIAL AND NOT TO BE RELEASED WITHOUT AUTHORIZATION
== END 2024-09-09 19:00 | disposition home or self-care (01) ==
LOC: ED 15:50
PROVIDERS: Emergency Medicine
DX: R07.9 Chest pain, unspecified (principal); R10.9 Unspecified abdominal pain; F03.90 Unspecified dementia, unspecified severity, without behavioral disturbance, psychotic disturbance, mood disturbance, and anxiety; F17.200 Nicotine dependence, unspecified, uncomplicated; I10 Essential (primary) hypertension; K21.9 Gastro-esophageal reflux disease without esophagitis; Z91.038 Other insect allergy status
CPT/HCPCS: 36415; 71045; 71275; 80053; 83880; 84484; 85025; 85610; 93005; 93010; 99285-25; Q9967

== ENCOUNTER 2024-09-15 13:40 | Emergency (ER) | payer OTHER, MEDICARE ==
[~2024-09-15] VITALS: Ht 185.4 cm; Wt 73.0 kg
[~2024-09-15 13:40] MED LIST changes: +CLOPIDOGREL75 MG PO
--- OUTSIDE RECORDS SUMMARY | 2024-09-15 13:45 | XMS ---
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 ELoni VISIT COUNT (12 MO.) 17 FELIX Oshea Monson [place] MMatthew ([place]) TOTAL 21 NOTE: Visits indicate total known visits. ED/UCC VISIT TRACKING (12 MO.) 09/15/2024 13:40 [facility] [place] TYPE: Emergency COMPLAINT: - ABDOMINAL PAIN 09/09/2024 15:51 [facility] [place] TYPE: Emergency COMPLAINT: - CHEST PAIN DIAGNOSES: - Chest pain, unspecified - Essential (primary) hypertension - Gastro-esophageal reflux disease without esophagitis - Nicotine dependence, unspecified, uncomplicated - Other insect allergy status - Unspecified abdominal pain - Unspecified dementia, unspecified severity, without behavioral disturbance, psychotic disturbance, mood disturbance, and anxiety 09/08/2024 13:18 [facility] [place] TYPE: Emergency COMPLAINT: - ABDOMINAL PAIN DIAGNOSES: - Bee allergy status - Benign prostatic hyperplasia without lower urinary tract symptoms - Essential (primary) hypertension - Gastro-esophageal reflux disease without esophagitis - alf (current) 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 - commercial property administrator (current) use of oral hypoglycemic drugs - Nicotine dependence, unspecified, uncomplicated - Other intermediate (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 - Unspecified abdominal pain - Unspecified atrial fibrillation - Unspecified cystostomy status - Unspecified dementia, unspecified severity, without behavioral disturbance, psychotic disturbance, mood disturbance, and anxiety 08/20/2024 05:12 [facility] [place] TYPE: Emergency COMPLAINT: - WEAKNESS DIAGNOSES: - Bee allergy status - Constipation, unspecified - Essential (primary) hypertension - Gastro-esophageal reflux disease without esophagitis - commercial property administrator (current) 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 - commercial property administrator (current) use of oral hypoglycemic drugs - Lower abdominal pain, unspecified - Nicotine dependence, unspecified, uncomplicated - Other intermediate (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 - Pneumonia, unspecified organism [...] - Gastro-esophageal reflux disease without esophagitis - commercial property administrator (current) 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 - alf (current) use of oral hypoglycemic drugs - Nicotine dependence, unspecified, uncomplicated - Other chronic pain - Other intermediate (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 - Other specified disorders [...] - Gastro-esophageal reflux disease without esophagitis - commercial property administrator (current) 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 - commercial property administrator (current) use of oral hypoglycemic drugs - Nicotine dependence, unspecified, uncomplicated - Other intermediate (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 - Type 2 diabetes mellitus without complications - Unspecified dementia, unspecified severity, without behavioral disturbance, psychotic disturbance, mood disturbance, and anxiety [facility]07[facility]24 [facility] DIAGNOSES: - Bradycardia, unspecified - Dizziness - low HR, low BP,dizziness - Weakness 04/02/2024 01:23 FELIX Uriarte TYPE: Emergency COMPLAINT: - PAIN GENITALS DIAGNOSES: - Bee allergy status - Essential (primary) hypertension - Gastro-esophageal reflux disease without esophagitis - Left lower quadrant pain - commercial property administrator (current) 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 - alf (current) use of oral hypoglycemic drugs - Other fbi special agent (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 - Type 2 [...] use of oral hypoglycemic drugs - Other fbi special agent (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 - Type 2 [...] use of oral hypoglycemic drugs - Other fbi special agent (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 - Other specified [...] esophagitis - Left lower quadrant pain - commercial property administrator (current) use of antibiotics - alf (current) 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 - commercial property administrator (current) use of oral hypoglycemic drugs - Nicotine dependence, unspecified, uncomplicated - Other intermediate (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 - Presence of urogenital implants - Solitary pulmonary nodule - Type 2 diabetes mellitus without complications - Unspecified atrial fibrillation 01/31/2024 16:45 [facility] [place] TYPE: Emergency COMPLAINT: - URINE PROBLEM DIAGNOSES: - Bee allergy status - Essential (primary) hypertension - Gastro-esophageal reflux disease without esophagitis - commercial property administrator (current) use of oral hypoglycemic drugs - Other intermediate (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 - Pain due to [...] - Gastro-esophageal reflux disease without esophagitis - commercial property administrator (current) 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 - commercial property administrator (current) use of oral hypoglycemic drugs - Lower abdominal pain, unspecified - Nicotine dependence, unspecified, uncomplicated - Type 2 diabetes mellitus without complications - Urinary tract infection, site not specified 01/24/2024 03:16 [facility] [place] TYPE: Emergency COMPLAINT: - URINE PROBLEM DIAGNOSES: - Bee allergy status - Essential (primary) hypertension - Gastro-esophageal reflux disease without esophagitis - commercial property administrator (current) 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 - alf (current) use of oral hypoglycemic drugs - Nicotine dependence, unspecified, uncomplicated - Other fbi special agent (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 - Other mechanical complication of indwelling urethral catheter, initial encounter - Other mechanical complication of other urinary catheter, initial encounter - Type 2 diabetes mellitus without complications - Unspecified atrial fibrillation 01/20/2024 12:17 [facility]: Emergency DIAGNOSES: - Unspecified complication of genitourinary prosthetic device, implant and graft, initial encounter - Altered Mental Status - Urinary Catheter Problem 12/26/2023 20:22 [facility]Ash[facility] Ramirez[facility] TYPE: Emergency DIAGNOSES: - Breakdown (mechanical) of cystostomy catheter, initial encounter - Penis Pain - Urinary Catheter Problem 12/10/2023 13:45 [facility] [place] [facility]Ashley Ramirez[place] TYPE: Emergency DIAGNOSES: - Presence of other vascular implants and grafts - Urinary tract infection, site not specified - Vascular Access Problem 12/03/2023 18:[address] [facility] [place] TYPE: Emergency COMPLAINT: - WEAKNESS 11/27/2023 12:[address] [facility] [place] TYPE: Emergency COMPLAINT: - DIZZINESS 11/22/2023 10:[address] [facility] [place] TYPE: Emergency COMPLAINT: - SYNCOPE,POSS HEAD INJURY DIAGNOSES: - Essential (primary) hypertension - Gastro-esophageal reflux disease without esophagitis - commercial property administrator (current) 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 - alf (current) use of oral hypoglycemic drugs - Nicotine dependence, unspecified, uncomplicated - Other insect allergy status - Other fbi special agent (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 - Syncope and collapse - Type 2 diabetes mellitus without complications - Unspecified atrial fibrillation Plus 1 More Visit INPATIENT VISIT TRACKING (12 MO.) 09/05/2024 07:11 [facility] TYPE: Internal Medicine DIAGNOSES: - Aneurysm [...] - Nicotine dependence, cigarettes, uncomplicated - Other intermediate (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 - Other obstructive and reflux uropathy - Other retention of urine - Type 2 diabetes mellitus without complications - Unspecified osteoarthritis, unspecified site - Urinary tract infection, site not specified [email or web address]
[2024-09-15 14:00] LABS: BASOPHILS 0.4 % (0-2); EOSINOPHILS 1.3 % (0-6); HEMATOCRIT 31.2 % (35.0-50.0); HEMOGLOBIN 10.6 g/dL (12.0-18.0); LYMPHOCYTES 12.6 % (24-44); MCHC 34.1 g/dl (30-36); MCV 87.9 fl (81-99); MONOCYTES 12.1 % (0-12); NEUTROPHILS 73.6 % (39-80); PLATELET COUNT 311 K/uL (140-440); RBC 3.55 M/ul (4.3-5.7); RDW 13.9 (10.5-15.0)
[2024-09-15 14:11] LABS: BACTERIA, URINE 4+ /hpf (negative); EPITHELIAL CELLS, URINE SQUAMOUS 1+ /lpf (0-1+); RED BLOOD CELLS, URINE >50 /hpf (0-5); REFLEX CULTURE, URINE Yes (No); WHITE BLOOD CELLS, URINE >50 /HPF (0-5)
[2024-09-15 14:12] LABS: CASTS, URINE WBC CAST 1+ \\lpf
[2024-09-15 14:18] LABS: ALBUMIN 2.6 g/dL (3.4-5.0); ALBUMIN/GLOBULIN RATIO 0.72 (1.1-2.4); ANION GAP 9.7 (7-21); BILIRUBIN, TOTAL 0.4 mg/dL (0.2-1.0); BUN/CREATININE RATIO 14.6 (6.0-28.6); CALCIUM 9.4 mg/dL (8.5-10.1); CREATININE, SERUM 0.89 mg/dL (0.70-1.30); POTASSIUM 3.7 mmol/L (3.5-5.1); PROTEIN, TOTAL 6.2 g/dL (6.4-8.2)
[2024-09-15 15:15] VITALS: BP 147/87
== END 2024-09-15 15:13 | disposition home or self-care (01) ==
LOC: ED 13:40
PROVIDERS: Emergency Medicine
DX: R10.13 Epigastric pain (principal); Z91.038 Other insect allergy status; F17.200 Nicotine dependence, unspecified, uncomplicated; I10 Essential (primary) hypertension; K21.9 Gastro-esophageal reflux disease without esophagitis
CPT/HCPCS: 36415; 80053; 81001; 83690; 84484; 85025; 87088; 99284

== ENCOUNTER 2024-09-26 15:18 | Emergency (ER) | payer OTHER, MEDICARE ==
[~2024-09-26] VITALS: Ht 185.4 cm; Wt 73.0 kg
--- OUTSIDE RECORDS SUMMARY | 2024-09-26 15:25 | XMS ---
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 ELoni VISIT COUNT (12 MO.) 17 FELIX Oshea [place] MMatthew ([place]) TOTAL 21 NOTE: Visits indicate total known visits. ED/UCC VISIT TRACKING (12 MO.) 09/26/2024 15:19 [facility] [place] TYPE: Emergency COMPLAINT: - SHORTNEES OF BREATH 09/15/2024 13:40 [facility] [place] TYPE: Emergency COMPLAINT: - ABDOMINAL PAIN DIAGNOSES: - Epigastric pain - Essential (primary) hypertension - Gastro-esophageal reflux disease without esophagitis - Nicotine dependence, unspecified, uncomplicated - Other insect allergy status 09/09/2024 15:[facility] [place] TYPE: Emergency COMPLAINT: - CHEST PAIN [...] - Gastro-esophageal reflux disease without esophagitis - roasterman (current) 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 - roasterman (current) use of oral hypoglycemic drugs - Nicotine dependence, unspecified, uncomplicated - Other termite helper (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 - Unspecified abdominal pain [...] - Other alf (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 - Pneumonia, unspecified organism [...] - Gastro-esophageal reflux disease without esophagitis - roasterman (current) 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 - jail (current) use of oral hypoglycemic drugs - Nicotine dependence, unspecified, uncomplicated - Other chronic pain - Other alf (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 - [...] - Gastro-esophageal reflux disease without esophagitis - roasterman (current) 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 - jail (current) use of oral hypoglycemic drugs - Nicotine dependence, unspecified, uncomplicated - Other alf (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 - Type 2 diabetes mellitus without complications - Unspecified dementia, unspecified severity, without behavioral disturbance, psychotic disturbance, mood disturbance, and anxiety 07/07/2024 [facility]: [facility] DIAGNOSES: - Bradycardia, unspecified - Dizziness - low HR, low BP,dizziness - Weakness 04/02/2024 01:23 FELIX Uriarte TYPE: Emergency COMPLAINT: - PAIN GENITALS DIAGNOSES: - Bee allergy status - Essential (primary) hypertension - Gastro-esophageal reflux disease without esophagitis - Left lower quadrant pain - jail (current) 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 - roasterman (current) use of oral hypoglycemic drugs - Other termite helper (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 - Type 2 diabetes mellitus without complications - Unspecified dementia, unspecified severity, without behavioral disturbance, psychotic disturbance, mood disturbance, and anxiety 03/15/2024 04:28 [facility] [place] TYPE: Emergency COMPLAINT: - GENITAL PAIN DIAGNOSES: - Bee allergy status - Essential (primary) hypertension - Gastro-esophageal reflux disease without esophagitis - roasterman (current) 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 - roasterman (current) use of oral hypoglycemic drugs - Other termite helper (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 - Type 2 [...] - jail (current) 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 - roasterman (current) use of oral hypoglycemic drugs - Other alf (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 - [...] esophagitis - Left lower quadrant pain - jail (current) use of antibiotics - jail (current) 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 - roasterman (current) use of oral hypoglycemic drugs - [...] - Gastro-esophageal reflux disease without esophagitis - roasterman (current) use of oral hypoglycemic drugs - Other termite helper (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 - Pain due [...] - jail (current) 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 - roasterman (current) use of oral hypoglycemic drugs - [...] Other alf (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 - Other mechanical complication of indwelling urethral catheter, initial encounter - Other mechanical complication of other urinary catheter, initial encounter - Type 2 diabetes mellitus without complications - Unspecified atrial fibrillation 01/20/2024 12:[address] [facility] Ashley THURMAN (Ashley Ramirez) TYPE: Emergency DIAGNOSES: - Unspecified complication of genitourinary prosthetic device, implant and graft, initial encounter - Altered Mental Status - Urinary Catheter Problem 12/26/2023 20:[address] [facility] Ashley THURMAN (Ashley Ramirez) TYPE: Emergency DIAGNOSES: - Breakdown (mechanical) of cystostomy catheter, initial encounter - Penis Pain - Urinary Catheter Problem 12/10/2023 13:45 [facility] [place] [facility]Ashley Ramirez[facility] TYPE: Emergency DIAGNOSES: - Presence of other vascular implants and grafts - Urinary tract infection, site not specified - Vascular Access Problem 12/03/2023 18:21 [facility] [place] TYPE: Emergency COMPLAINT: - WEAKNESS 11/27/2023 12:23 [facility] [place] TYPE: Emergency COMPLAINT: - DIZZINESS Plus 1 More Visit INPATIENT VISIT TRACKING (12 MO.) 09/05/2024 07:11 [facility] TYPE: Internal Medicine DIAGNOSES: - Aneurysm of [...] Nicotine dependence, cigarettes, uncomplicated - Other termite helper (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 - Other obstructive and reflux uropathy - Other retention of urine - Type 2 diabetes mellitus without complications - Unspecified osteoarthritis, unspecified site - Urinary tract infection, site not specified [email or web address]
[2024-09-26 15:35] LABS: BASOPHILS 1.1 % (0-2); EOSINOPHILS 1.3 % (0-6); HEMATOCRIT 28.2 % (35.0-50.0); HEMOGLOBIN 9.8 g/dL (12.0-18.0); LYMPHOCYTES 12.5 % (24-44); MCH 29.6 (27-36); MCHC 34.7 g/dl (30-36); MCV 85.5 fl (81-99); MONOCYTES 10.7 % (0-12); NEUTROPHILS 74.4 % (39-80); PLATELET COUNT 309 K/uL (140-440)
[2024-09-26 15:53] LABS: ALBUMIN 2.6 g/dL (3.4-5.0); ALBUMIN/GLOBULIN RATIO 0.76 (1.1-2.4); ANION GAP 7.4 (7-21); BILIRUBIN, TOTAL 0.4 mg/dL (0.2-1.0); BUN/CREATININE RATIO 19.35 (6.0-28.6); CALCIUM 9.3 mg/dL (8.5-10.1); CREATININE, SERUM 0.93 mg/dL (0.70-1.30); MAGNESIUM 1.7 mg/dL (1.8-2.4); POTASSIUM 3.4 mmol/L (3.5-5.1)
[2024-09-26 17:42] VITALS: BP 118/64
--- NOTE | 2024-09-27 07:24 | EKG ---
[facility] [address] [place] [id number] Signed Normal sinus rhythm Right bundle branch block Left anterior fascicular block Bifascicular block Minimal voltage criteria for LVH, may be normal variant ( R in aVL ) Anterolateral infarct (cited on or before 22-NOV-2023) Abnormal ECG When compared with ECG of 09-SEP-2024 15:49, premature supraventricular complexes are no longer present Questionable change in initial forces of Anterolateral leads Confirmed by Jessica Hylton MD ([id number]) on 09/27/2024 7:24:21 AM Electronically Signed By: JESSICA HYLTON MD 09/27/24 0724 PATIENT NAME: TIEN ESPINO Electrocardiogram DATE OF : 47 PHYSICIAN: JESSICA HYLTON MD REPORT #: [id number] REPORT IS CONFIDENTIAL AND NOT TO BE RELEASED WITHOUT AUTHORIZATION
== END 2024-09-26 17:45 | disposition home or self-care (01) ==
LOC: ED 15:18
PROVIDERS: Emergency Medicine
DX: R06.02 Shortness of breath (principal); I10 Essential (primary) hypertension; K21.9 Gastro-esophageal reflux disease without esophagitis; M19.90 Unspecified osteoarthritis, unspecified site; I48.91 Unspecified atrial fibrillation; F17.200 Nicotine dependence, unspecified, uncomplicated; Z91.030 Bee allergy status
CPT/HCPCS: 36415; 71045; 80053; 83735; 84484; 85025; 93005; 93010; 99285-25

== ENCOUNTER 2024-10-04 17:02 | Emergency (ER) | payer OTHER, MEDICARE ==
[~2024-10-04] VITALS: Ht 185.4 cm; Wt 80.0 kg
--- OUTSIDE RECORDS SUMMARY | 2024-10-04 17:06 | XMS ---
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 ELoni VISIT COUNT (12 MO.) 18 FELIX [place] MMatthew ([place]) TOTAL 22 NOTE: Visits indicate total known visits. ED/UCC VISIT TRACKING (12 MO.) 10/04/2024 17:02 [facility] [place] TYPE: Emergency COMPLAINT: - ABDOMINAL PAIN 09/26/2024 15:19 [facility] [place] TYPE: Emergency COMPLAINT: - SHORTNESS OF BREATH DIAGNOSES: - Bee allergy status - Essential (primary) hypertension - Gastro-esophageal reflux disease without esophagitis - Nicotine dependence, unspecified, uncomplicated - Shortness of breath - Unspecified atrial fibrillation - Unspecified osteoarthritis, unspecified site 09/15/2024 13:40 [facility] [place] TYPE: Emergency COMPLAINT: - ABDOMINAL PAIN DIAGNOSES: - Epigastric pain - Essential (primary) hypertension - Gastro-esophageal reflux disease without esophagitis - Nicotine dependence, unspecified, uncomplicated - Other insect allergy status 09/09/2024 15:51 [facility] [place] TYPE: Emergency COMPLAINT: - CHEST PAIN DIAGNOSES: - Chest pain, unspecified - Essential (primary) hypertension - Gastro-esophageal reflux disease without esophagitis - Nicotine dependence, unspecified, uncomplicated - Other insect allergy status - Unspecified abdominal pain - Unspecified dementia, unspecified severity, without behavioral disturbance, psychotic disturbance, mood disturbance, and anxiety 09/08/2024 13:18 [facility] [place] TYPE: Emergency COMPLAINT: - ABDOMINAL PAIN DIAGNOSES: - Bee allergy status - Benign prostatic hyperplasia without lower urinary tract symptoms - Essential (primary) hypertension - Gastro-esophageal reflux disease without esophagitis - dispensing lead (current) 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 - correction (current) use of oral hypoglycemic drugs - Nicotine dependence, unspecified, uncomplicated - Other chcf (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 - Unspecified abdominal pain - Unspecified atrial fibrillation - Unspecified cystostomy status - Unspecified dementia, unspecified severity, without behavioral disturbance, psychotic disturbance, mood disturbance, and anxiety 08/20/2024 05:12 [facility] [place] TYPE: Emergency COMPLAINT: - WEAKNESS DIAGNOSES: - Bee allergy status - Constipation, unspecified - Essential (primary) hypertension - Gastro-esophageal reflux disease without esophagitis - dispensing lead (current) 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 - dispensing lead (current) use of oral hypoglycemic drugs - Lower abdominal pain, unspecified - Nicotine dependence, unspecified, uncomplicated - Other quality assurance supervisor (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 - Pneumonia, unspecified organism [...] - Gastro-esophageal reflux disease without esophagitis - dispensing lead (current) 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 - dispensing lead (current) use of oral hypoglycemic drugs - Nicotine dependence, unspecified, uncomplicated - Other chronic pain - Other quality assurance supervisor (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 - Other specified [...] - Gastro-esophageal reflux disease without esophagitis - dispensing lead (current) 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 - correction (current) use of oral hypoglycemic drugs - Nicotine dependence, unspecified, uncomplicated - Other quality assurance supervisor (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 - Type 2 diabetes mellitus without complications - Unspecified dementia, unspecified severity, without behavioral disturbance, psychotic disturbance, mood disturbance, and anxiety 07/07/2024 11:40 [facility]: Emergency DIAGNOSES: - Bradycardia, unspecified - Dizziness - low HR, low BP,dizziness - Weakness 04/02/2024 01:23 [facility]ELIX Al [place] TYPE: Emergency COMPLAINT: - PAIN GENITALS DIAGNOSES: - Bee allergy status - Essential (primary) hypertension - Gastro-esophageal reflux disease without esophagitis - Left lower quadrant pain - correction (current) 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 - correction (current) use of oral hypoglycemic drugs - Other quality assurance supervisor (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 - Type 2 diabetes mellitus without complications - Unspecified dementia, unspecified severity, without behavioral disturbance, psychotic disturbance, mood disturbance, and anxiety 03/15/2024 04:28 [facility] Al [place] TYPE: Emergency COMPLAINT: - GENITAL PAIN DIAGNOSES: - Bee allergy status - Essential (primary) hypertension - Gastro-esophageal reflux disease without esophagitis - dispensing lead (current) 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 - correction (current) use of oral hypoglycemic drugs - Other quality assurance supervisor (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 - Type 2 diabetes mellitus without complications - Unspecified dementia, unspecified severity, without behavioral disturbance, psychotic disturbance, mood disturbance, and anxiety - Unspecified renal colic - Urinary tract infection, site not specified 02/03/2024 10:12 [facility] [place] TYPE: Emergency COMPLAINT: - SOB DIAGNOSES: - Dehydration - Essential (primary) hypertension - Gastro-esophageal reflux disease without esophagitis - correction (current) 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 - correction (current) use of oral hypoglycemic drugs - Other quality assurance supervisor (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 - Other specified [...] esophagitis - Left lower quadrant pain - correction (current) use of antibiotics - correction (current) 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 - correction (current) use of oral hypoglycemic drugs - [...] - Gastro-esophageal reflux disease without esophagitis - correction (current) use of oral hypoglycemic drugs - Other chcf (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 - Pain due to [...] - Gastro-esophageal reflux disease without esophagitis - correction (current) 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 - dispensing lead (current) use of oral hypoglycemic drugs - Lower abdominal pain, unspecified - Nicotine dependence, unspecified, uncomplicated - Type 2 diabetes mellitus without complications - Urinary tract infection, site not specified 01/24/2024 03:16 FELIX Uriarte TYPE: Emergency COMPLAINT: - URINE PROBLEM DIAGNOSES: - Bee allergy status - Essential (primary) hypertension - Gastro-esophageal reflux disease without esophagitis - correction (current) 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 - correction (current) use of oral hypoglycemic drugs - Nicotine dependence, unspecified, uncomplicated - Other quality assurance supervisor (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 - Other mechanical complication of indwelling urethral catheter, initial encounter - Other mechanical complication of other urinary catheter, initial encounter - Type 2 diabetes mellitus without complications - Unspecified atrial fibrillation [facility]20[facility]24 [facility]: [facility] DIAGNOSES: - Unspecified complication of genitourinary prosthetic device, implant and graft, initial encounter - Altered Mental Status - Urinary Catheter Problem 12/26/2023 20:[facility] [place] (Ashley Ramirez[facility] TYPE: Emergency DIAGNOSES: - Breakdown (mechanical) of cystostomy catheter, initial encounter - Penis Pain - Urinary Catheter Problem 12/10/2023 13:45 [facility] [place] (Ashley Ramirez) TYPE: Emergency DIAGNOSES: - Presence of other vascular implants and grafts - Urinary tract infection, site not specified - Vascular Access Problem 12/03/2023 18:21 [facility]ELIX Al [place] TYPE: Emergency COMPLAINT: - WEAKNESS Plus 2 More Visits INPATIENT VISIT TRACKING (12 MO.) 09/05/2024 07:11 [facility] TYPE: Internal Medicine DIAGNOSES: - [...] - Nicotine dependence, cigarettes, uncomplicated - Other chcf (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 - Other obstructive and reflux uropathy - Other retention of urine - Type 2 diabetes mellitus without complications - Unspecified osteoarthritis, unspecified site - Urinary tract infection, site not specified [email or web address]
[2024-10-04 19:52] VITALS: BP 136/61
== END 2024-10-04 19:45 | disposition home or self-care (01) ==
LOC: ED 17:02
DX: R10.10 Upper abdominal pain, unspecified (principal); G89.29 Other chronic pain; K21.9 Gastro-esophageal reflux disease without esophagitis; I10 Essential (primary) hypertension; I48.91 Unspecified atrial fibrillation; F17.200 Nicotine dependence, unspecified, uncomplicated; Z79.82 Long term (current) 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; Z79.02 Long term (current) use of antithrombotics/antiplatelets; Z91.030 Bee allergy status
CPT/HCPCS: 99283

== ENCOUNTER 2024-10-08 15:22 | Emergency (ER) | payer OTHER, MEDICARE ==
[~2024-10-08] VITALS: Ht 185.4 cm; Wt 70.0 kg
--- OUTSIDE RECORDS SUMMARY | 2024-10-08 15:28 | XMS ---
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 ELoni VISIT COUNT (12 MO.) 20 FELIX Phelpsnckay Turpin VladMatthew ([place]) TOTAL 24 NOTE: Visits indicate total known visits. ED/UCC VISIT TRACKING (12 MO.) 10/08/2024 15:22 [facility] [place] TYPE: Emergency COMPLAINT: - ABDOMINAL PAIN 10/07/2024 10:58 [facility] [place] TYPE: Emergency COMPLAINT: - CONSTIPATION 10/04/2024 17:02 [facility] [place] TYPE: Emergency COMPLAINT: - ABDOMINAL PAIN DIAGNOSES: - Bee allergy status - Essential (primary) hypertension - Gastro-esophageal reflux disease without esophagitis - dedicated intermodal truck driver (current) use of antithrombotics/antiplatelets - prison (current) 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 - Nicotine dependence, unspecified, uncomplicated - Other chronic pain - Unspecified abdominal pain - Unspecified atrial fibrillation - Upper abdominal pain, unspecified 09/26/2024 15:19 [facility] [place] TYPE: Emergency COMPLAINT: - SHORTNESS OF BREATH DIAGNOSES: - Bee allergy status - Essential (primary) hypertension - Gastro-esophageal reflux disease without esophagitis - Nicotine dependence, unspecified, uncomplicated - Shortness of breath - Unspecified atrial fibrillation - Unspecified osteoarthritis, unspecified site 09/15/2024 13:40 [facility] [place] TYPE: Emergency COMPLAINT: - ABDOMINAL PAIN DIAGNOSES: - Epigastric pain - Essential (primary) hypertension - Gastro-esophageal reflux disease without esophagitis - Nicotine dependence, unspecified, uncomplicated - Other insect allergy status 09/09/2024 15:51 [facility] [place] TYPE: Emergency [...] - Gastro-esophageal reflux disease without esophagitis - prison (current) 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 - dedicated intermodal truck driver (current) use of oral hypoglycemic drugs - Nicotine dependence, unspecified, uncomplicated - Other half-way (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 - Unspecified abdominal pain - Unspecified atrial fibrillation - Unspecified cystostomy status - Unspecified dementia, unspecified severity, without behavioral disturbance, psychotic disturbance, mood disturbance, and anxiety 08/20/2024 05:12 [facility] [place] TYPE: Emergency COMPLAINT: - WEAKNESS DIAGNOSES: - Bee allergy status - Constipation, unspecified - Essential (primary) hypertension - Gastro-esophageal reflux disease without esophagitis - dedicated intermodal truck driver (current) 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 - dedicated intermodal truck driver (current) use of oral hypoglycemic drugs - Lower abdominal pain, unspecified - Nicotine dependence, unspecified, uncomplicated - Other half-way (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 - Pneumonia, unspecified organism [...] - Gastro-esophageal reflux disease without esophagitis - prison (current) 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 - dedicated intermodal truck driver (current) use of oral hypoglycemic drugs - Nicotine dependence, unspecified, uncomplicated - Other chronic pain - Other half-way (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 - Other specified disorders [...] - Gastro-esophageal reflux disease without esophagitis - prison (current) 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 - dedicated intermodal truck driver (current) use of oral hypoglycemic drugs - Nicotine dependence, unspecified, uncomplicated - Other technician terminal and repeater (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 - Type 2 diabetes mellitus without complications - Unspecified dementia, unspecified severity, without behavioral disturbance, psychotic disturbance, mood disturbance, and anxiety 07/07/2024 11:40 [facility] Ashley THURMAN (Ashley Ramirez) TYPE: Emergency DIAGNOSES: - Bradycardia, unspecified - Dizziness - low HR, low BP,dizziness - Weakness 04/02/2024 01:23 [facility] [place] TYPE: Emergency COMPLAINT: - PAIN GENITALS DIAGNOSES: - Bee allergy status - Essential (primary) hypertension - Gastro-esophageal reflux disease without esophagitis - Left lower quadrant pain - dedicated intermodal truck driver (current) 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 - dedicated intermodal truck driver (current) use of oral hypoglycemic drugs - Other half-way (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 - Type 2 diabetes mellitus without complications - Unspecified dementia, unspecified severity, without behavioral disturbance, psychotic disturbance, mood disturbance, and anxiety 03/15/2024 04:28 [facility] [place] TYPE: Emergency COMPLAINT: - GENITAL PAIN DIAGNOSES: - Bee allergy status - Essential (primary) hypertension - Gastro-esophageal reflux disease without esophagitis - prison (current) 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 - prison (current) use of oral hypoglycemic drugs - Other technician terminal and repeater (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 - Type 2 diabetes mellitus without complications - Unspecified dementia, unspecified severity, without behavioral disturbance, psychotic disturbance, mood disturbance, and anxiety - Unspecified renal colic - Urinary tract infection, site not specified 02/03/2024 10:12 [facility] [place] TYPE: Emergency COMPLAINT: - SOB DIAGNOSES: - Dehydration - Essential (primary) hypertension - Gastro-esophageal reflux disease without esophagitis - prison (current) 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 - dedicated intermodal truck driver (current) use of oral hypoglycemic drugs - Other half-way (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 - Other specified disorders [...] esophagitis - Left lower quadrant pain - prison (current) use of antibiotics - dedicated intermodal truck driver (current) 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 - dedicated intermodal truck driver (current) use of oral hypoglycemic drugs - Nicotine dependence, unspecified, uncomplicated - Other technician terminal and repeater (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 - Presence of urogenital implants - Solitary pulmonary nodule - Type 2 diabetes mellitus without complications - Unspecified atrial fibrillation 01/31/2024 16:45 [facility] [place] TYPE: Emergency COMPLAINT: - URINE PROBLEM DIAGNOSES: - Bee allergy status - Essential (primary) hypertension - Gastro-esophageal reflux disease without esophagitis - prison (current) use of oral hypoglycemic drugs - Other half-way (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 - Pain due to [...] - Gastro-esophageal reflux disease without esophagitis - prison (current) 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 - dedicated intermodal truck driver (current) use of oral hypoglycemic drugs - Lower abdominal pain, unspecified - Nicotine dependence, unspecified, uncomplicated - Type 2 diabetes mellitus without complications - Urinary tract infection, site not specified 01/24/2024 03:16 [facility] [place] TYPE: Emergency COMPLAINT: - URINE PROBLEM DIAGNOSES: - Bee allergy status - Essential (primary) hypertension - Gastro-esophageal reflux disease without esophagitis - prison (current) 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 - prison (current) use of oral hypoglycemic drugs - Nicotine dependence, unspecified, uncomplicated - Other technician terminal and repeater (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 - Other mechanical complication of indwelling urethral catheter, initial encounter - Other mechanical complication of other urinary catheter, initial encounter - Type 2 diabetes mellitus without complications - Unspecified atrial fibrillation 01/20/2024 12:17 [facility] Ashley THURMAN (Ashley Ramirez) TYPE: Emergency DIAGNOSES: - Unspecified complication of genitourinary prosthetic device, implant and graft, initial encounter - Altered Mental Status - Urinary Catheter Problem 12/26/2023 20:22 [facility] Ashley THURMAN (Ashley Ramirez) TYPE: Emergency DIAGNOSES: - Breakdown (mechanical) of cystostomy catheter, initial encounter - Penis Pain - Urinary Catheter Problem Plus 4 More Visits INPATIENT VISIT TRACKING (12 MO.) 09/05/2024 07:11 [facility] TYPE: Internal Medicine DIAGNOSES: - Aneurysm [...] - Nicotine dependence, cigarettes, uncomplicated - Other technician terminal and repeater (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 - Other obstructive and reflux uropathy - Other retention of urine - Type 2 diabetes mellitus without complications - Unspecified osteoarthritis, unspecified site - Urinary tract infection, site not specified [email or web address]
[2024-10-08] MEDS ORDERED: MAGNESIUM CITRATE 300 ML BTL PO ONE (17:30)
[2024-10-08 17:53] VITALS: BP 121/68
--- NOTE | 2024-10-09 12:48 | EKG ---
[facility] [address] [facility] [place] [address] Signed Sinus rhythm with premature supraventricular complexes Right bundle branch block Left anterior fascicular block Bifascicular block Anterolateral infarct (cited on or before 22-NOV-2023) Abnormal ECG When compared with ECG of 26-SEP-2024 15:29, premature supraventricular complexes are now present Confirmed by Nathan Ojeda DO ([id number]) on 10/09/2024 12:48:39 PM Electronically Signed By: NATHAN OJEDA DO 10/09/24 1248 PATIENT NAME: TIEN ESPINO Electrocardiogram DATE OF : 47 PHYSICIAN: NATHAN OJEDA DO REPORT #: [id number] REPORT IS CONFIDENTIAL AND NOT TO BE RELEASED WITHOUT AUTHORIZATION
== END 2024-10-08 17:54 | disposition home or self-care (01) ==
LOC: ED 15:22
DX: R07.9 Chest pain, unspecified (principal); I10 Essential (primary) hypertension; K21.9 Gastro-esophageal reflux disease without esophagitis; I48.91 Unspecified atrial fibrillation; F17.200 Nicotine dependence, unspecified, uncomplicated; Z79.82 Long term (current) 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; Z79.84 Long term (current) use of oral hypoglycemic drugs; Z79.899 Other long term (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; Z91.030 Bee allergy status
CPT/HCPCS: 81001; 93005; 93010; 99284

== ENCOUNTER 2024-10-11 22:50 | Emergency (ER) | payer OTHER, MEDICARE | END 2024-10-12 00:31 | disposition home or self-care (01) | LOC: ED 22:50 | DX: T83.091A Other mechanical complication of indwelling urethral catheter, initial encounter (principal); N39.0 Urinary tract infection, site not specified; I10 Essential (primary) hypertension; K21.9 Gastro-esophageal reflux disease without esophagitis; I48.91 Unspecified atrial fibrillation; F17.200 Nicotine dependence, unspecified, uncomplicated; Z79.02 Long term (current) use of antithrombotics/antiplatelets; Z79.82 Long term (current) 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; Z79.899 Other long term (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; Z79.84 Long term (current) use of oral hypoglycemic drugs; Z91.030 Bee allergy status ==

== ENCOUNTER 2024-10-28 19:26 | Emergency (ER) | payer OTHER, MEDICARE ==
[~2024-10-28] VITALS: Ht 185.4 cm; Wt 70.0 kg
--- OUTSIDE RECORDS SUMMARY | 2024-10-28 19:33 | XMS ---
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 ELoni VISIT COUNT (12 MO.) 24 FELIX Oshea [facility]. Avis ChuJamarHildaJamar ([place]) TOTAL 28 NOTE: Visits indicate total known visits. ED/UCC VISIT TRACKING (12 MO.) 10/28/2024 19:26 [facility] [place] TYPE: Emergency COMPLAINT: - CATH ISSUES 10/25/2024 10:54 [facility] [place] TYPE: Emergency COMPLAINT: - NOT FEELING WELL DIAGNOSES: - Bee allergy status - Essential (primary) hypertension - Gastro-esophageal reflux disease without esophagitis - terminal press operator (current) 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 - Nicotine dependence, unspecified, uncomplicated - Other residential (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 - Other specified disorders of penis 10/19/2024 15:10 [facility] [place] TYPE: Emergency COMPLAINT: - PENIS BURNING DIAGNOSES: - Adverse effect of other opioids, initial encounter - Bee allergy status - Dizziness and giddiness - Essential (primary) hypertension - Gastro-esophageal reflux disease without esophagitis - terminal press operator (current) use of antithrombotics/antiplatelets - half-way (current) 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 - terminal press operator (current) use of oral hypoglycemic drugs - Nicotine dependence, unspecified, uncomplicated - Other specified disorders of penis - Unspecified atrial fibrillation - Unspecified dementia, unspecified severity, without behavioral disturbance, psychotic disturbance, mood disturbance, and anxiety 10/11/2024 22:50 [facility] [place] TYPE: Emergency COMPLAINT: - CATHETER ISSUES DIAGNOSES: - Bee allergy status - Essential (primary) hypertension - Gastro-esophageal reflux disease without esophagitis - terminal press operator (current) use of antithrombotics/antiplatelets - terminal press operator (current) 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 - terminal press operator (current) use of oral hypoglycemic drugs - Nicotine dependence, unspecified, uncomplicated - Other terminal press operator (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 - Other mechanical complication of indwelling urethral catheter, initial encounter - Unspecified atrial fibrillation - Urinary tract infection, site not specified 10/08/2024 15:22 [facility] TYPE: Emergency COMPLAINT: - ABDOMINAL PAIN DIAGNOSES: - Bee allergy status - Chest pain, unspecified - Essential (primary) hypertension - Gastro-esophageal reflux disease without esophagitis - terminal press operator (current) 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 - half-way (current) use of oral hypoglycemic drugs - Nicotine dependence, unspecified, uncomplicated - Other residential (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 - Unspecified abdominal pain - Unspecified atrial fibrillation 10/07/2024 10:[address] [facility] [place] TYPE: Emergency COMPLAINT: - CONSTIPATION 10/04/2024 17:02 [facility] [place] TYPE: Emergency COMPLAINT: - ABDOMINAL PAIN DIAGNOSES: - Bee allergy status - Essential (primary) hypertension - Gastro-esophageal reflux disease without esophagitis - terminal press operator (current) use of antithrombotics/antiplatelets - half-way (current) 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 - Nicotine dependence, [...] Gastro-esophageal reflux disease without esophagitis - terminal press operator (current) 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 - terminal press operator (current) use of oral hypoglycemic drugs - Nicotine dependence, unspecified, uncomplicated - Other terminal press operator (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 - Unspecified abdominal pain - Unspecified atrial fibrillation - Unspecified cystostomy status - Unspecified dementia, unspecified severity, without behavioral disturbance, psychotic disturbance, mood disturbance, and anxiety 08/20/2024 05:12 [facility] TYPE: Emergency COMPLAINT: - WEAKNESS DIAGNOSES: - Bee allergy status - Constipation, unspecified - Essential (primary) hypertension - Gastro-esophageal reflux disease without esophagitis - half-way (current) 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 - half-way (current) use of oral hypoglycemic drugs - Lower abdominal pain, unspecified - Nicotine dependence, unspecified, uncomplicated - Other terminal press operator (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 - Pneumonia, unspecified organism [...] Gastro-esophageal reflux disease without esophagitis - terminal press operator (current) 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 - terminal press operator (current) use of oral hypoglycemic drugs - Nicotine dependence, unspecified, uncomplicated - Other chronic pain - Other residential (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 - [...] Gastro-esophageal reflux disease without esophagitis - terminal press operator (current) 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 - terminal press operator (current) use of oral hypoglycemic drugs - Nicotine dependence, unspecified, uncomplicated - Other terminal press operator (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 - Type 2 diabetes mellitus without complications - Unspecified dementia, unspecified severity, without behavioral disturbance, psychotic disturbance, mood disturbance, and anxiety 07/07/2024 11:40 [facility] Sal THURMAN (Ashley Ramirez) TYPE: Emergency DIAGNOSES: - Bradycardia, unspecified - Dizziness - low HR, low BP,dizziness - Weakness 04/02/2024 01:23 [facility] [place] TYPE: Emergency COMPLAINT: - PAIN GENITALS DIAGNOSES: - Bee allergy status - Essential (primary) hypertension - Gastro-esophageal reflux disease without esophagitis - Left lower quadrant pain - terminal press operator (current) 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 - half-way (current) use of oral hypoglycemic drugs - Other terminal press operator (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 - Type 2 diabetes mellitus without complications - Unspecified dementia, unspecified severity, without behavioral disturbance, psychotic disturbance, mood disturbance, and anxiety 03/15/2024 04:28 [facility] [place] TYPE: Emergency COMPLAINT: - GENITAL PAIN DIAGNOSES: - Bee allergy status - Essential (primary) hypertension - Gastro-esophageal reflux disease without esophagitis - half-way (current) 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 - terminal press operator (current) use of oral hypoglycemic drugs [...] Gastro-esophageal reflux disease without esophagitis - terminal press operator (current) 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 - half-way (current) use of oral hypoglycemic drugs - Other terminal press operator (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 - Other specified disorders [...] esophagitis - Left lower quadrant pain - terminal press operator (current) use of antibiotics - terminal press operator (current) 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 - half-way (current) use of oral hypoglycemic drugs - [...] - Gastro-esophageal reflux disease without esophagitis - half-way (current) use of oral hypoglycemic drugs - Other terminal press operator (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 - Pain due to genitourinary prosthetic devices, implants and grafts, initial encounter - Type 2 diabetes mellitus without complications - Unspecified atrial fibrillation - Urinary tract infection, site not specified Plus 8 More Visits INPATIENT VISIT TRACKING (12 MO.) 09/05/2024 07:11 [facility] TYPE: Internal Medicine DIAGNOSES: - Aneurysm of the descending thoracic aorta, without rupture 12/03/2023 21:[address] [facility] [place] TYPE: Medical Surgical [...] - Urinary tract infection, site not specified [email or web address]
[2024-10-28 20:33] LABS: BILIRUBIN, URINE NEGATIVE (negative); BLOOD/HGB, URINE LARGE (Negative); KETONE, URINE NEGATIVE (Negative); LEUK ESTERASE, URINE MODERATE (negative); NITRITE, URINE POSITIVE (negative)
[2024-10-28 20:38] LABS: EPITHELIAL CELLS, URINE SQUAMOUS 1+ /lpf (0-1+); RED BLOOD CELLS, URINE >50 /hpf (0-5)
[2024-10-28 20:40] LABS: BACTERIA, URINE RARE /hpf (negative); CRYSTALS, URINE NONE SEEN (0-1+)
[2024-10-28 20:41] LABS: CASTS, URINE NONE SEEN \\lpf; COLLECTION TYPE, URINE CATH; REFLEX CULTURE, URINE No (No)
[2024-10-28 21:21] VITALS: BP 133/61
[2024-10-29] MEDS ORDERED: TRANZAREL120 ML TOP (20:22)
[2024-11-07] MEDS ORDERED: LEVOFLOXACIN750 MG PO (16:58)
[2024-11-07] MEDS ORDERED: CLOPIDOGREL75 MG PO (16:58)
== END 2024-10-28 21:47 | disposition home or self-care (01) ==
LOC: ED 19:26
PROVIDERS: Internal Medicine
DX: R19.8 Other specified symptoms and signs involving the digestive system and abdomen (principal); Z79.82 Long term (current) 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; I10 Essential (primary) hypertension; K21.9 Gastro-esophageal reflux disease without esophagitis; F17.200 Nicotine dependence, unspecified, uncomplicated; Z79.02 Long term (current) use of antithrombotics/antiplatelets; Z91.030 Bee allergy status
CPT/HCPCS: 51702; 81001; 87077; 87088; 87186; 99283

== ENCOUNTER 2024-10-29 12:03 | Emergency (ER) | payer OTHER, MEDICARE ==
[~2024-10-29] VITALS: Ht 185.4 cm; Wt 74.7 kg
--- OUTSIDE RECORDS SUMMARY | 2024-10-29 12:10 | XMS ---
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 ELoni VISIT COUNT (12 MO.) 25 FELIX Oshea [facility]. Avis ChuJamarHildaJamar ([place]) TOTAL 29 NOTE: Visits indicate total known visits. ED/UCC VISIT TRACKING (12 MO.) 10/29/2024 12:03 [facility] [place] TYPE: Emergency COMPLAINT: - CATH PROBLEM 10/28/2024 19:26 [facility] TYPE: Emergency COMPLAINT: - CATH ISSUES 10/25/2024 10:54 [facility] [place] TYPE: Emergency COMPLAINT: - NOT FEELING WELL DIAGNOSES: - Bee allergy status - Essential (primary) hypertension - Gastro-esophageal reflux disease without esophagitis - shelter (current) 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 - Nicotine dependence, unspecified, uncomplicated - Other [facility] (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 - Other specified disorders of penis 10/19/2024 15:10 [facility] [place] TYPE: Emergency COMPLAINT: - PENIS BURNING DIAGNOSES: - Adverse effect of other opioids, initial encounter - Bee allergy status - Dizziness and giddiness - Essential (primary) hypertension - Gastro-esophageal reflux disease without esophagitis - shelter (current) use of antithrombotics/antiplatelets - 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 - 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 oral hypoglycemic [...] without esophagitis - shelter (current) use of antithrombotics/antiplatelets - 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 - 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 oral hypoglycemic drugs - Nicotine dependence, unspecified, uncomplicated - Other termite technician (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 - Other mechanical complication of indwelling urethral catheter, initial encounter - Unspecified atrial fibrillation - Urinary tract infection, site not specified 10/08/2024 15:22 [facility] TYPE: Emergency COMPLAINT: - ABDOMINAL PAIN DIAGNOSES: - Bee allergy status - Chest pain, unspecified - Essential (primary) hypertension - Gastro-esophageal reflux disease without esophagitis - 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 - shelter (current) use of oral hypoglycemic drugs - Nicotine dependence, unspecified, uncomplicated - Other termite technician (current) drug therapy - Unspecified abdominal pain - Unspecified atrial fibrillation 10/07/2024 10:58 [facility] TYPE: Emergency COMPLAINT: - CONSTIPATION 10/04/2024 17:02 [facility] [place] TYPE: Emergency COMPLAINT: - ABDOMINAL PAIN DIAGNOSES: - Bee allergy status - Essential (primary) hypertension - Gastro-esophageal reflux disease without esophagitis - shelter (current) use of antithrombotics/antiplatelets - shelter (current) 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 - [...] - Gastro-esophageal reflux disease without esophagitis - 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 - shelter (current) [...] - shelter (current) 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 - 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 oral hypoglycemic drugs - Lower abdominal pain, unspecified - Nicotine dependence, unspecified, uncomplicated - Other [facility] (current) drug therapy - Pneumonia, unspecified organism [...] uncomplicated - Other chronic pain - Other [facility] (current) drug therapy - Other specified disorders [...] - Gastro-esophageal reflux disease without esophagitis - 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 - shelter (current) use of oral hypoglycemic drugs - Nicotine dependence, unspecified, uncomplicated - Other [facility] (current) drug therapy - Type 2 diabetes mellitus without complications - Unspecified dementia, unspecified severity, without behavioral disturbance, psychotic disturbance, mood disturbance, and anxiety 07/07/[facility]24 [facility] DIAGNOSES: - Bradycardia, unspecified - Dizziness - low HR, low BP,dizziness - Weakness 04/02/2024 01:23 FELIX [facility] TYPE: Emergency COMPLAINT: - PAIN GENITALS DIAGNOSES: - Bee allergy status - Essential (primary) hypertension - Gastro-esophageal reflux disease without esophagitis - Left lower quadrant pain - shelter (current) 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 - shelter (current) use of oral hypoglycemic drugs - Other termite technician (current) drug therapy - Type 2 diabetes mellitus without complications - Unspecified dementia, unspecified severity, without behavioral disturbance, psychotic disturbance, mood disturbance, and anxiety 03/15/2024 04:28 [facility] [place] TYPE: Emergency COMPLAINT: - GENITAL PAIN DIAGNOSES: - Bee allergy status - Essential (primary) hypertension - Gastro-esophageal reflux disease without esophagitis - 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 - shelter (current) [...] - Gastro-esophageal reflux disease without esophagitis - 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 - shelter (current) use of oral hypoglycemic drugs - Other [facility] (current) drug therapy - Other specified disorders [...] esophagitis - Left lower quadrant pain - 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 - shelter (current) 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 - 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 oral hypoglycemic drugs - Nicotine dependence, unspecified, uncomplicated - Other termite technician (current) drug therapy - Presence of urogenital implants - Solitary pulmonary nodule - Type 2 diabetes mellitus without complications - Unspecified atrial fibrillation Plus 9 More Visits INPATIENT VISIT TRACKING (12 MO.) [facility]24 [facility] DIAGNOSES: - Aneurysm of [...] mood disturbance, and anxiety 11/27/2023 15:41 [facility] [place] TYPE: Medical Surgical COMPLAINT: - UTI DIAGNOSES: - Abdominal aortic aneurysm, without rupture, unspecified - Anxiety disorder, unspecified - Bee allergy status - Benign prostatic hyperplasia with lower urinary tract symptoms - Bladder-neck obstruction - Calculus in bladder - Calculus of ureter - Chronic atrial fibrillation, unspecified - Gastro-esophageal reflux disease without esophagitis - Nicotine dependence, cigarettes, uncomplicated - Other termite technician (current) drug therapy - Other obstructive and reflux uropathy - Other retention of urine - Type 2 diabetes mellitus without complications - Unspecified osteoarthritis, unspecified site - Urinary tract infection, site not specified [email or web address]
[2024-10-29] MEDS ORDERED: PHENAZOPYRIDINE HCL 100 MG TAB PO ONE (12:45)
[2024-10-29 13:37] LABS: BILIRUBIN, URINE NEGATIVE (negative); BLOOD/HGB, URINE LARGE (Negative); KETONE, URINE NEGATIVE (Negative); LEUK ESTERASE, URINE MODERATE (negative); NITRITE, URINE POSITIVE (negative); PH, URINE 6.5 (5-7)
[2024-10-29 13:42] LABS: EPITHELIAL CELLS, URINE SQUAMOUS 1+ /lpf (0-1+); RED BLOOD CELLS, URINE >50 /hpf (0-5)
[2024-10-29 13:43] LABS: BACTERIA, URINE RARE /hpf (negative); CASTS, URINE NONE SEEN \\lpf; COLLECTION TYPE, URINE CLEAN CATCH; CRYSTALS, URINE NONE SEEN (0-1+); REFLEX CULTURE, URINE Yes (No)
[2024-10-29 17:10] VITALS: BP 144/60
[2024-10-29] MEDS ORDERED: TRANZAREL120 ML TOP (20:22)
[2024-11-07] MEDS ORDERED: LEVOFLOXACIN750 MG PO (16:58)
[2024-11-07] MEDS ORDERED: CLOPIDOGREL75 MG PO (16:58)
== END 2024-10-29 17:10 | disposition home or self-care (01) ==
LOC: ED 12:03
PROVIDERS: Emergency Medicine
DX: R39.198 Other difficulties with micturition (principal); R60.0 Localized edema; I10 Essential (primary) hypertension; K21.9 Gastro-esophageal reflux disease without esophagitis; M19.90 Unspecified osteoarthritis, unspecified site; I48.91 Unspecified atrial fibrillation; F17.200 Nicotine dependence, unspecified, uncomplicated; Z91.030 Bee allergy status; Z79.899 Other long term (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; Z79.2 Long term (current) use of antibiotics
CPT/HCPCS: 81001; 87077; 87088; 87186; 99283

== ENCOUNTER 2024-10-30 18:25 | Emergency (ER) | payer MEDICARE ==
[~2024-10-30] VITALS: Ht 185.4 cm; Wt 72.6 kg
[~2024-10-30 18:25] MED LIST changes: +TRANZAREL120 ML TOP
--- OUTSIDE RECORDS SUMMARY | 2024-10-30 18:30 | XMS ---
PreManage Notification: TIEN ESPINO Security Legal Records Clerk Events No recent Security Events currently on file CRITERIA MET - 6 ED Visits in 6 Months - Group Notification - [facility] - 2 Visits in 30 Days CARE PROVIDERS -, [facility]ist: Correspondence Clerk Current [place] PHONE: [phone] [facility] Emergency Medicine Current PHONE: [phone] DWAYNE MILLS Nurse Practitioner Current PHONE: [phone] Anaya has no Care Guidelines for this patient. ELoni VISIT COUNT (12 MO.) 28 FELIX Oshea [facility]. Avis ChuJamarHildaJamar ([place]) TOTAL 32 NOTE: Visits indicate total known visits. ED/UCC VISIT TRACKING (12 MO.) 10/30/2024 18:25 [facility] [place] TYPE: Emergency COMPLAINT: - WEAKNESS 10/30/2024 12:08 [facility] [place] TYPE: Emergency COMPLAINT: - WEAKNESS 10/29/2024 19:59 [facility] [place] TYPE: Emergency COMPLAINT: - URINE PROBLEM 10/29/2024 12:03 [facility] TYPE: Emergency COMPLAINT: - CATH PROBLEM 10/28/2024 19:26 [facility] [place] TYPE: Emergency COMPLAINT: - CATH ISSUES 10/25/2024 10:54 [facility] [place] TYPE: Emergency COMPLAINT: - NOT FEELING WELL DIAGNOSES: - Bee allergy status - Essential (primary) hypertension - Gastro-esophageal reflux disease without esophagitis - 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 - Nicotine dependence, unspecified, uncomplicated - Other extermination supervisor (current) drug therapy - Other specified disorders of penis 10/19/2024 15:10 [facility] [place] TYPE: Emergency COMPLAINT: - PENIS BURNING DIAGNOSES: - Adverse effect of other opioids, initial encounter - Bee allergy status - Dizziness and giddiness - Essential (primary) hypertension - Gastro-esophageal reflux disease without esophagitis - longterm (current) use of antithrombotics/antiplatelets - longterm (current) 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 - watermelon harvesting [...] without esophagitis - longterm (current) use of antithrombotics/antiplatelets - 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 - longterm (current) use of oral hypoglycemic drugs - Nicotine dependence, unspecified, uncomplicated - Other longterm (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 - Other mechanical complication of indwelling urethral catheter, initial encounter - Unspecified atrial fibrillation - Urinary tract infection, site not specified 10/08/2024 15:22 [facility] [place] TYPE: Emergency COMPLAINT: - ABDOMINAL PAIN DIAGNOSES: - Bee allergy status - Chest pain, unspecified - Essential (primary) hypertension - Gastro-esophageal reflux disease without esophagitis - 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 - longterm (current) use of oral hypoglycemic drugs - Nicotine dependence, unspecified, uncomplicated - Other extermination supervisor (current) drug therapy - Unspecified abdominal pain - Unspecified atrial fibrillation 10/07/2024 10:58 [facility] TYPE: Emergency COMPLAINT: - CONSTIPATION 10/04/2024 17:02 [facility] TYPE: Emergency COMPLAINT: - ABDOMINAL PAIN DIAGNOSES: - Bee allergy status - Essential (primary) hypertension - Gastro-esophageal reflux disease without esophagitis - longterm (current) use of antithrombotics/antiplatelets - 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 - Nicotine [...] - longterm (current) 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 - 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 - Nicotine dependence, unspecified, uncomplicated - Other extermination supervisor (current) drug therapy - Unspecified abdominal pain [...] - longterm (current) 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 - longterm (current) use of oral hypoglycemic drugs - Lower abdominal pain, unspecified - Nicotine dependence, unspecified, uncomplicated - Other extermination supervisor (current) drug therapy - Pneumonia, unspecified [...] harvesting supervisor (current) use of aspirin - 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 - Nicotine dependence, unspecified, uncomplicated - Other chronic pain - Other longterm (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 - Other specified disorders [...] - longterm (current) 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 - longterm (current) use of oral hypoglycemic drugs - Nicotine dependence, unspecified, uncomplicated - Other extermination supervisor (current) drug therapy - Type 2 diabetes mellitus without complications - Unspecified dementia, unspecified severity, without behavioral disturbance, psychotic disturbance, mood disturbance, and anxiety 07/07/2024 11:40 [facility] Sal THURMAN ([place]) TYPE: Emergency DIAGNOSES: - Bradycardia, unspecified - Dizziness - low HR, low BP,dizziness - Weakness 04/02/2024 01:23 [facility] [place] TYPE: Emergency COMPLAINT: - PAIN GENITALS DIAGNOSES: - Bee allergy status - Essential (primary) hypertension - Gastro-esophageal reflux disease without esophagitis - Left lower quadrant pain - longterm (current) 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 - 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 - Other longterm (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 - Type 2 diabetes mellitus without complications - Unspecified dementia, unspecified severity, without behavioral disturbance, psychotic disturbance, mood disturbance, and anxiety Plus 12 More Visits INPATIENT VISIT TRACKING (12 MO.) 09/05/2024 07:11 [facility] TYPE: Internal Medicine DIAGNOSES: - [...] - Nicotine dependence, cigarettes, uncomplicated - Other longterm (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 - Other obstructive and reflux uropathy - Other retention of urine - Type 2 diabetes mellitus without complications - Unspecified osteoarthritis, unspecified site - Urinary tract infection, site not specified [email or web address]
[2024-10-30 19:10] VITALS: BP 145/56
[2024-11-07] MEDS ORDERED: LEVOFLOXACIN750 MG PO (16:58)
[2024-11-07] MEDS ORDERED: CLOPIDOGREL75 MG PO (16:58)
== END 2024-10-30 19:10 | disposition home or self-care (01) ==
LOC: ED 18:25
DX: R53.83 Other fatigue (principal); F03.90 Unspecified dementia, unspecified severity, without behavioral disturbance, psychotic disturbance, mood disturbance, and anxiety; I10 Essential (primary) hypertension; K21.9 Gastro-esophageal reflux disease without esophagitis; M19.90 Unspecified osteoarthritis, unspecified site; I48.91 Unspecified atrial fibrillation; F17.200 Nicotine dependence, unspecified, uncomplicated; Z91.030 Bee allergy status; Z79.899 Other long term (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; Z79.2 Long term (current) use of antibiotics
CPT/HCPCS: 99283

== ENCOUNTER 2024-10-31 14:29 | Emergency (ER) | payer OTHER, MEDICARE ==
[~2024-10-31] VITALS: Ht 185.4 cm; Wt 72.6 kg
--- OUTSIDE RECORDS SUMMARY | 2024-10-31 14:34 | XMS ---
PreManage Notification: TIEN ESPINO Security Etcher Photoengraving Events No recent Security Events currently on file CRITERIA MET - 6 ED Visits in 6 Months - Group Notification - [facility] - 2 Visits in 30 Days CARE PROVIDERS -, [facility]ist: Cis Coordinator Current [place] PHONE: [phone] [facility] Emergency Medicine Current PHONE: [phone] DWAYNE MILLS Nurse Practitioner Current PHONE: [phone] Anaya has no Care Guidelines for this patient. ELoni VISIT COUNT (12 MO.) 29 FELIX Oshea [facility]. Avis ChuJamarHildaJamar ([place]) TOTAL 33 NOTE: Visits indicate total known visits. ED/UCC VISIT TRACKING (12 MO.) 10/31/2024 14:30 [facility] TYPE: Emergency COMPLAINT: - ABDOMINAL PAIN 10/30/2024 18:25 [facility] TYPE: Emergency COMPLAINT: - WEAKNESS 10/30/2024 12:08 [facility] TYPE: Emergency COMPLAINT: - WEAKNESS 10/29/2024 19:59 [facility] TYPE: Emergency COMPLAINT: - URINE PROBLEM 10/29/2024 12:03 [facility] TYPE: Emergency COMPLAINT: - CATH PROBLEM DIAGNOSES: - Bee allergy status - Essential (primary) hypertension - Gastro-esophageal reflux disease without esophagitis - Localized edema - correction (current) use of antibiotics - Nicotine dependence, unspecified, uncomplicated - Other difficulties with micturition - Other assisted (current) drug therapy - Unspecified atrial fibrillation - Unspecified osteoarthritis, unspecified site 10/28/2024 19:26 [facility] TYPE: Emergency COMPLAINT: - CATH ISSUES DIAGNOSES: - Bee allergy status - Essential (primary) hypertension - Gastro-esophageal reflux disease without esophagitis - correction (current) use of antithrombotics/antiplatelets - correction (current) use of aspirin - Nicotine dependence, unspecified, uncomplicated - Other specified symptoms and signs involving the digestive system and abdomen 10/25/2024 10:54 [facility] TYPE: Emergency COMPLAINT: - NOT FEELING WELL DIAGNOSES: - Bee allergy status - Essential (primary) hypertension - Gastro-esophageal reflux disease without esophagitis - tank terminal gauger (current) use of aspirin - Nicotine dependence, unspecified, uncomplicated - Other computer terminal operator (current) drug therapy - Other specified disorders of penis 10/19/2024 15:10 [facility] TYPE: Emergency COMPLAINT: - PENIS BURNING DIAGNOSES: - Adverse effect of other opioids, initial encounter - Bee allergy status - Dizziness and giddiness - Essential (primary) hypertension - Gastro-esophageal reflux disease without esophagitis - tank terminal gauger (current) use of antithrombotics/antiplatelets - tank terminal gauger (current) use of aspirin - correction (current) [...] - Gastro-esophageal reflux disease without esophagitis - tank terminal gauger (current) use of antithrombotics/antiplatelets - tank terminal gauger (current) use of aspirin - tank terminal gauger (current) use of oral hypoglycemic drugs - Nicotine dependence, unspecified, uncomplicated - Other computer terminal operator (current) drug therapy - Other mechanical complication of indwelling urethral catheter, initial encounter - Unspecified atrial fibrillation - Urinary tract infection, site not specified 10/08/2024 15:22 [facility] TYPE: Emergency COMPLAINT: - ABDOMINAL PAIN DIAGNOSES: - Bee allergy status - Chest pain, unspecified - Essential (primary) hypertension - Gastro-esophageal reflux disease without esophagitis - tank terminal gauger (current) use of aspirin - correction (current) use of oral hypoglycemic drugs - Nicotine dependence, unspecified, uncomplicated - Other assisted (current) drug therapy - Unspecified abdominal pain - Unspecified atrial fibrillation 10/07/2024 10:58 [facility] TYPE: Emergency COMPLAINT: - CONSTIPATION 10/04/2024 17:02 [facility] TYPE: Emergency COMPLAINT: - ABDOMINAL PAIN DIAGNOSES: - Bee allergy status - Essential (primary) hypertension - Gastro-esophageal reflux disease without esophagitis - correction (current) use of antithrombotics/antiplatelets - correction (current) use of aspirin - Nicotine dependence, [...] Other insect allergy status 09/09/2024 15:51 [facility]ELIX [facility] [place] TYPE: Emergency COMPLAINT: - CHEST [...] - Gastro-esophageal reflux disease without esophagitis - tank terminal gauger (current) use of aspirin - correction (current) use of oral hypoglycemic drugs - Nicotine dependence, unspecified, uncomplicated - Other computer terminal operator (current) drug therapy - Unspecified abdominal pain - Unspecified atrial fibrillation - Unspecified cystostomy status - Unspecified dementia, unspecified severity, without behavioral disturbance, psychotic disturbance, mood disturbance, and anxiety 08/20/2024 05:12 [facility] TYPE: Emergency COMPLAINT: - WEAKNESS DIAGNOSES: - Bee allergy status - Constipation, unspecified - Essential (primary) hypertension - Gastro-esophageal reflux disease without esophagitis - tank terminal gauger (current) use of aspirin - tank terminal gauger (current) use of oral hypoglycemic drugs - Lower abdominal pain, unspecified - Nicotine dependence, unspecified, uncomplicated - Other assisted (current) drug therapy - Pneumonia, unspecified organism [...] - Gastro-esophageal reflux disease without esophagitis - tank terminal gauger (current) use of aspirin - tank terminal gauger (current) use of oral hypoglycemic drugs - Nicotine dependence, unspecified, uncomplicated - Other chronic pain - Other computer terminal operator (current) drug therapy - Other specified [...] - Gastro-esophageal reflux disease without esophagitis - tank terminal gauger (current) use of aspirin - correction (current) use of oral hypoglycemic drugs - Nicotine dependence, unspecified, uncomplicated - Other assisted (current) drug therapy - Type 2 diabetes mellitus without complications - Unspecified dementia, unspecified severity, without behavioral disturbance, psychotic disturbance, mood disturbance, and anxiety 07/07/2024 11:40 [facility] Ashley THURMAN ([place]) TYPE: Emergency DIAGNOSES: - Bradycardia, unspecified - Dizziness - low HR, low BP,dizziness - Weakness Plus 13 More Visits INPATIENT VISIT TRACKING (12 MO.) 09/05/2024 07[facility] DIAGNOSES: - Aneurysm of [...] - Nicotine dependence, cigarettes, uncomplicated - Other assisted (current) drug therapy - Other obstructive and reflux uropathy - Other retention of urine - Type 2 diabetes mellitus without complications - Unspecified osteoarthritis, unspecified site - Urinary tract infection, site not specified [email or web address]
[2024-10-31 20:56] VITALS: BP 105/57
== END 2024-10-31 20:57 | disposition home or self-care (01) ==
LOC: ED 14:29
DX: F03.90 Unspecified dementia, unspecified severity, without behavioral disturbance, psychotic disturbance, mood disturbance, and anxiety (principal); I10 Essential (primary) hypertension; K21.9 Gastro-esophageal reflux disease without esophagitis; M19.90 Unspecified osteoarthritis, unspecified site; I48.91 Unspecified atrial fibrillation; F17.200 Nicotine dependence, unspecified, uncomplicated; Z91.030 Bee allergy status
CPT/HCPCS: 99283

== ENCOUNTER 2024-11-01 10:50 | Emergency (ER) | payer OTHER, MEDICARE ==
[~2024-11-01] VITALS: Ht 185.4 cm; Wt 72.6 kg
--- OUTSIDE RECORDS SUMMARY | 2024-11-01 10:52 | XMS ---
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 ELoni VISIT COUNT (12 MO.) 30 FELIX Oshea [facility]. Avis JaramilloJamar ([place]) TOTAL 34 NOTE: Visits indicate total known visits. ED/UCC VISIT TRACKING (12 MO.) 11/01/2024 10:50 [facility] [place] TYPE: Emergency COMPLAINT: - WEAKNESS 10/31/2024 14:30 [facility] TYPE: Emergency COMPLAINT: - ABDOMINAL PAIN 10/30/2024 18:25 [facility] TYPE: Emergency COMPLAINT: - WEAKNESS 10/30/2024 12:08 [facility] TYPE: Emergency COMPLAINT: - WEAKNESS DIAGNOSES: - Bee allergy status - Essential (primary) hypertension - Gastro-esophageal reflux disease without esophagitis - prison (current) use of antibiotics - Nicotine dependence, unspecified, uncomplicated - Other long term acute care registered nurse (current) drug therapy - Unspecified atrial fibrillation - Weakness 10/29/2024 19:59 [facility] TYPE: Emergency COMPLAINT: - URINE PROBLEM DIAGNOSES: - Bee allergy status - Essential (primary) hypertension - Gastro-esophageal reflux disease without esophagitis - Nicotine dependence, unspecified, uncomplicated - Other disturbances of skin sensation - Other long term acute care registered nurse (current) drug therapy - Pelvic and perineal pain - Unspecified atrial fibrillation - Unspecified osteoarthritis, unspecified site - Urinary tract infection, site not specified 10/29/2024 12:03 [facility] TYPE: Emergency COMPLAINT: - CATH PROBLEM DIAGNOSES: - Bee allergy status - Essential (primary) hypertension - Gastro-esophageal reflux disease without esophagitis - Localized edema - senior technologist (current) use of antibiotics - Nicotine dependence, unspecified, uncomplicated - Other difficulties with micturition - Other long term acute care registered nurse (current) drug therapy - Unspecified atrial fibrillation - Unspecified osteoarthritis, unspecified site 10/28/2024 19:26 [facility] TYPE: Emergency COMPLAINT: - CATH ISSUES DIAGNOSES: - Bee allergy status - Essential (primary) hypertension - Gastro-esophageal reflux disease without esophagitis - senior technologist (current) use of antithrombotics/antiplatelets - prison (current) use of aspirin - Nicotine dependence, unspecified, uncomplicated - Other specified symptoms and signs involving the digestive system and abdomen 10/25/2024 10:54 [facility] [place] TYPE: Emergency COMPLAINT: - NOT FEELING WELL DIAGNOSES: - Bee allergy status - Essential (primary) hypertension - Gastro-esophageal reflux disease without esophagitis - senior technologist (current) use of aspirin - Nicotine dependence, unspecified, uncomplicated - Other long term acute care registered nurse (current) drug therapy - Other specified disorders of penis 10/19/2024 15:10 [facility] TYPE: Emergency COMPLAINT: - PENIS BURNING DIAGNOSES: - Adverse effect of other opioids, initial encounter - Bee allergy status - Dizziness and giddiness - Essential (primary) hypertension - Gastro-esophageal reflux disease without esophagitis - prison (current) use of antithrombotics/antiplatelets - prison (current) use of aspirin - senior technologist (current) use of oral hypoglycemic drugs - Nicotine dependence, unspecified, uncomplicated - Other specified disorders of penis - Unspecified atrial fibrillation - Unspecified dementia, unspecified severity, without behavioral disturbance, psychotic disturbance, mood disturbance, and anxiety 10/11/2024 22:50 [facility] TYPE: Emergency COMPLAINT: - CATHETER ISSUES DIAGNOSES: - Bee allergy status - Essential (primary) hypertension - Gastro-esophageal reflux disease without esophagitis - senior technologist (current) use of antithrombotics/antiplatelets - senior technologist (current) use of aspirin - senior technologist (current) use of oral hypoglycemic drugs - Nicotine dependence, unspecified, uncomplicated - Other fdc (current) drug therapy - Other mechanical complication [...] - Nicotine dependence, unspecified, uncomplicated - Other fdc (current) drug therapy - Unspecified abdominal pain - Unspecified atrial fibrillation 10/07/2024 10:58 [facility] TYPE: Emergency COMPLAINT: - CONSTIPATION 10/04/2024 17:02 [facility] [place] TYPE: Emergency COMPLAINT: - ABDOMINAL PAIN DIAGNOSES: - Bee allergy status - Essential (primary) hypertension - Gastro-esophageal reflux disease without esophagitis - senior technologist (current) use of antithrombotics/antiplatelets - prison (current) [...] - prison (current) use of aspirin - senior technologist (current) use of oral hypoglycemic drugs - Nicotine dependence, unspecified, uncomplicated - Other long term acute care registered nurse (current) drug therapy - Unspecified abdominal pain [...] - Nicotine dependence, unspecified, uncomplicated - Other long term acute care registered nurse (current) drug therapy - Pneumonia, unspecified organism [...] - Gastro-esophageal reflux disease without esophagitis - senior technologist (current) use of aspirin - senior technologist (current) use of oral hypoglycemic drugs - Nicotine dependence, unspecified, uncomplicated - Other chronic pain - Other fdc (current) drug therapy - Other specified disorders of penis - Type 2 diabetes mellitus without complications - Unspecified atrial fibrillation - Unspecified cystostomy status - Unspecified dementia, unspecified severity, without behavioral disturbance, psychotic disturbance, mood disturbance, and anxiety 07/17/2024 11:[address] [facility] [place] TYPE: Emergency COMPLAINT: - GENITAL PROBLEM DIAGNOSES: - Bee allergy status - Dizziness and giddiness - Essential (primary) hypertension - Gastro-esophageal reflux disease without esophagitis - prison (current) use of aspirin - senior technologist (current) use of oral hypoglycemic drugs - Nicotine dependence, unspecified, uncomplicated - Other fdc (current) drug therapy - Type 2 diabetes mellitus without complications - Unspecified dementia, unspecified severity, without behavioral disturbance, psychotic disturbance, mood disturbance, and anxiety Plus 14 More Visits INPATIENT VISIT TRACKING (12 MO.) 09/05/2024 07:11 [facility] TYPE: Internal Medicine DIAGNOSES: - Aneurysm [...] - Nicotine dependence, cigarettes, uncomplicated - Other fdc (current) drug therapy - Other obstructive and reflux uropathy - Other retention of urine - Type 2 diabetes mellitus without complications - Unspecified osteoarthritis, unspecified site - Urinary tract infection, site not specified [email or web address]
[2024-11-01 18:59] VITALS: BP 129/54
== END 2024-11-01 18:59 | disposition home or self-care (01) ==
LOC: ED 10:50
DX: F03.90 Unspecified dementia, unspecified severity, without behavioral disturbance, psychotic disturbance, mood disturbance, and anxiety (principal); I10 Essential (primary) hypertension; K21.9 Gastro-esophageal reflux disease without esophagitis; M19.90 Unspecified osteoarthritis, unspecified site; I48.91 Unspecified atrial fibrillation; F17.200 Nicotine dependence, unspecified, uncomplicated; Z91.030 Bee allergy status
CPT/HCPCS: 99283

== ENCOUNTER 2024-11-04 12:25 | Emergency (ER) | payer OTHER, MEDICARE ==
[~2024-11-04] VITALS: Ht 185.4 cm; Wt 72.6 kg
--- OUTSIDE RECORDS SUMMARY | 2024-11-04 12:30 | XMS ---
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 ELoni VISIT COUNT (12 MO.) [facility] ([place] TOTAL 35 NOTE: Visits indicate total known visits. ED/UCC VISIT TRACKING (12 MO.) 11/04/2024 12:25 [facility] [place] TYPE: Emergency COMPLAINT: - WEAKNESS 11/01/2024 10:50 [facility] [place] TYPE: Emergency COMPLAINT: - WEAKNESS 10/31/2024 14:30 [facility] TYPE: Emergency COMPLAINT: - ABDOMINAL PAIN 10/30/2024 18:25 [facility] [place] TYPE: Emergency COMPLAINT: - WEAKNESS DIAGNOSES: - Bee allergy status - Essential (primary) hypertension - Gastro-esophageal reflux disease without esophagitis - residential (current) use of antibiotics - Nicotine dependence, unspecified, uncomplicated - Other fatigue - Other supervisor intermediates (current) drug therapy - Unspecified atrial fibrillation - Unspecified dementia, unspecified severity, without behavioral disturbance, psychotic disturbance, mood disturbance, and anxiety - Unspecified osteoarthritis, unspecified site - Weakness 10/30/2024 12:08 [facility] [place] TYPE: Emergency COMPLAINT: - WEAKNESS DIAGNOSES: - Bee allergy status - Essential (primary) hypertension - Gastro-esophageal reflux disease without esophagitis - residential (current) use of antibiotics - Nicotine dependence, unspecified, uncomplicated - Other supervisor intermediates (current) drug therapy - Unspecified atrial fibrillation - Weakness 10/29/2024 19:59 [facility] TYPE: Emergency COMPLAINT: - URINE PROBLEM DIAGNOSES: - Bee allergy status - Essential (primary) hypertension - Gastro-esophageal reflux disease without esophagitis - Nicotine dependence, unspecified, uncomplicated - Other disturbances of skin sensation - Other fpc (current) drug therapy - Pelvic and perineal pain - Unspecified atrial fibrillation - Unspecified osteoarthritis, unspecified site - Urinary tract infection, site not specified 10/29/2024 12:03 [facility] TYPE: Emergency COMPLAINT: - CATH PROBLEM DIAGNOSES: - Bee allergy status - Essential (primary) hypertension - Gastro-esophageal reflux disease without esophagitis - Localized edema - residential (current) use of antibiotics - Nicotine dependence, unspecified, uncomplicated - Other difficulties with micturition - Other supervisor intermediates (current) drug therapy - Unspecified atrial fibrillation - Unspecified osteoarthritis, unspecified site 10/28/2024 19:26 [facility] TYPE: Emergency COMPLAINT: - CATH ISSUES DIAGNOSES: - Bee allergy status - Essential (primary) hypertension - Gastro-esophageal reflux disease without esophagitis - residential (current) use of antithrombotics/antiplatelets - residential (current) use of aspirin - Nicotine dependence, unspecified, uncomplicated - Other specified symptoms and signs involving the digestive system and abdomen 10/25/2024 10:54 [facility] [place] TYPE: Emergency COMPLAINT: - NOT FEELING WELL DIAGNOSES: - Bee allergy status - Essential (primary) hypertension - Gastro-esophageal reflux disease without esophagitis - residential (current) use of aspirin - Nicotine dependence, unspecified, uncomplicated - Other supervisor intermediates (current) drug therapy - Other specified disorders of penis 10/19/2024 15:10 [facility] TYPE: Emergency COMPLAINT: - PENIS BURNING DIAGNOSES: - Adverse effect of other opioids, initial encounter - Bee allergy status - Dizziness and giddiness - Essential (primary) hypertension - Gastro-esophageal reflux disease without esophagitis - continuous churn buttermaker (current) use of antithrombotics/antiplatelets - continuous churn buttermaker (current) use of aspirin - continuous churn buttermaker (current) use of oral hypoglycemic drugs - Nicotine dependence, unspecified, uncomplicated - Other specified disorders of penis - Unspecified atrial fibrillation - Unspecified dementia, unspecified severity, without behavioral disturbance, psychotic disturbance, mood disturbance, and anxiety 10/11/2024 22:50 [facility] TYPE: Emergency COMPLAINT: - CATHETER ISSUES DIAGNOSES: - Bee allergy status - Essential (primary) hypertension - Gastro-esophageal reflux disease without esophagitis - continuous churn buttermaker (current) use of antithrombotics/antiplatelets - residential (current) use of aspirin - residential (current) use of oral hypoglycemic drugs - Nicotine dependence, unspecified, uncomplicated - Other fpc (current) drug therapy - Other mechanical complication of indwelling urethral catheter, initial encounter - Unspecified atrial fibrillation - Urinary tract infection, site not specified 10/08/2024 15:22 [facility] TYPE: Emergency COMPLAINT: - ABDOMINAL PAIN DIAGNOSES: - Bee allergy status - Chest pain, unspecified - Essential (primary) hypertension - Gastro-esophageal reflux disease without esophagitis - continuous churn buttermaker (current) use of aspirin - residential (current) use of oral hypoglycemic drugs - Nicotine dependence, unspecified, uncomplicated - Other fpc (current) drug therapy - Unspecified abdominal pain - Unspecified atrial fibrillation 10/07/2024 10:58 [facility] [place] TYPE: Emergency COMPLAINT: - CONSTIPATION 10/04/2024 17:[address] [facility] [place] TYPE: Emergency COMPLAINT: - ABDOMINAL PAIN DIAGNOSES: - Bee allergy status - Essential (primary) hypertension - Gastro-esophageal reflux disease without esophagitis - continuous churn buttermaker (current) use of antithrombotics/antiplatelets - continuous churn buttermaker (current) use of aspirin - Nicotine dependence, unspecified, uncomplicated - Other chronic pain - Unspecified abdominal pain - Unspecified atrial fibrillation - Upper abdominal pain, unspecified 09/26/2024 15:[address] [facility] [place] TYPE: Emergency COMPLAINT: - SHORTNESS OF BREATH DIAGNOSES: - Bee allergy status - Essential (primary) hypertension - Gastro-esophageal reflux disease without esophagitis - Nicotine dependence, unspecified, uncomplicated - Shortness of breath - Unspecified atrial fibrillation - Unspecified osteoarthritis, unspecified site 09/15/2024 13:[address] [facility] [place] TYPE: Emergency COMPLAINT: - ABDOMINAL PAIN DIAGNOSES: - Epigastric pain - Essential (primary) hypertension - Gastro-esophageal reflux disease without esophagitis - Nicotine dependence, unspecified, uncomplicated - Other insect allergy status 09/09/2024 15:[address] [facility] [place] TYPE: Emergency COMPLAINT: - CHEST PAIN DIAGNOSES: - Chest pain, unspecified - Essential (primary) hypertension - Gastro-esophageal reflux disease without esophagitis - Nicotine dependence, unspecified, uncomplicated - Other insect allergy status - Unspecified abdominal pain - Unspecified dementia, unspecified severity, without behavioral disturbance, psychotic disturbance, mood disturbance, and anxiety 09/08/2024 13:[address] [facility] [place] [facility] [place] TYPE: Emergency COMPLAINT: - ABDOMINAL PAIN DIAGNOSES: - Bee allergy status - Benign prostatic hyperplasia without lower urinary tract symptoms - Essential (primary) hypertension - Gastro-esophageal reflux disease without esophagitis - residential (current) use of aspirin - continuous churn buttermaker (current) use of oral hypoglycemic drugs - Nicotine dependence, unspecified, uncomplicated - Other fpc (current) drug therapy - Unspecified abdominal pain - Unspecified atrial fibrillation - Unspecified cystostomy status - Unspecified dementia, unspecified severity, without behavioral disturbance, psychotic disturbance, mood disturbance, and anxiety 08/20/2024 05:[address] [facility] [place] TYPE: Emergency COMPLAINT: - WEAKNESS DIAGNOSES: - Bee allergy status - Constipation, unspecified - Essential (primary) hypertension - Gastro-esophageal reflux disease without esophagitis - residential (current) use of aspirin - continuous churn buttermaker (current) use of oral hypoglycemic drugs - Lower abdominal pain, unspecified - Nicotine dependence, unspecified, uncomplicated - Other supervisor intermediates (current) drug therapy - Pneumonia, unspecified organism - Type 2 diabetes mellitus without complications - Unspecified atrial fibrillation - Unspecified osteoarthritis, unspecified site - Urinary tract infection, site not specified 07/26/2024 16:[address] [facility] [place] TYPE: Emergency COMPLAINT: - SYNCOPE DIAGNOSES: - Bee allergy status - Encounter for examination and observation following other accident - Essential (primary) hypertension - Gastro-esophageal reflux disease without esophagitis - residential (current) use of aspirin - residential (current) use of oral hypoglycemic drugs - Nicotine dependence, unspecified, uncomplicated - Other chronic pain - Other supervisor intermediates (current) drug therapy - Other specified disorders of penis - Type 2 diabetes mellitus without complications - Unspecified atrial fibrillation - Unspecified cystostomy status - Unspecified dementia, unspecified severity, without behavioral disturbance, psychotic disturbance, mood disturbance, and anxiety Plus 15 More Visits INPATIENT VISIT TRACKING (12 MO.) 09/05/2024 07:11 [facility] TYPE: Internal Medicine DIAGNOSES: - Aneurysm [...] - Nicotine dependence, cigarettes, uncomplicated - Other supervisor intermediates (current) drug therapy - Other obstructive and reflux uropathy - Other retention of urine - Type 2 diabetes mellitus without complications - Unspecified osteoarthritis, unspecified site - Urinary tract infection, site not specified [email or web address]
[2024-11-04 14:24] LABS: BILIRUBIN, URINE NEGATIVE (negative); BLOOD/HGB, URINE MODERATE (Negative); KETONE, URINE NEGATIVE (Negative); LEUK ESTERASE, URINE MODERATE (negative); NITRITE, URINE POSITIVE (negative)
[2024-11-04 14:31] LABS: WHITE BLOOD CELLS, URINE 21-40 /HPF (0-5)
[2024-11-04 14:32] LABS: BACTERIA, URINE RARE /hpf (negative); CASTS, URINE NONE SEEN \\lpf; COLLECTION TYPE, URINE CLEAN CATCH; CRYSTALS, URINE NONE SEEN (0-1+); EPITHELIAL CELLS, URINE SQUAMOUS 2+ /lpf (0-1+); REFLEX CULTURE, URINE No (No)
[2024-11-04 18:29] VITALS: BP 132/77
== END 2024-11-04 18:29 | disposition home or self-care (01) ==
LOC: ED 12:25
PROVIDERS: Emergency Medicine
DX: N48.89 Other specified disorders of penis (principal); I10 Essential (primary) hypertension; K21.9 Gastro-esophageal reflux disease without esophagitis; M19.90 Unspecified osteoarthritis, unspecified site; I48.91 Unspecified atrial fibrillation; F17.200 Nicotine dependence, unspecified, uncomplicated; Z88.8 Allergy status to other drugs, medicaments and biological substances
CPT/HCPCS: 81001; 99283

== ENCOUNTER 2024-11-06 11:43 | Emergency (ER) | payer OTHER, MEDICARE ==
[~2024-11-06] VITALS: Ht 185.4 cm; Wt 72.6 kg
--- OUTSIDE RECORDS SUMMARY | 2024-11-06 11:50 | XMS ---
PreManage Notification: TIEN ESPINO Security Reconciliation Manager Events No recent Security Events currently on file CRITERIA MET - 6 ED Visits in 6 Months - Group Notification - [facility] - 2 Visits in 30 Days CARE PROVIDERS -, [facility] Dentist: Sustainability Project Coordinator Current [place] PHONE: [phone] [facility] Current PHONE: [phone] DWAYNE MILLS Nurse Practitioner Current PHONE: [phone] Anaya has no Care Guidelines for this patient. ELoni VISIT COUNT (12 MO.) 32 FELIX [facility]. Avis JaramilloJamar ([place]) TOTAL 36 NOTE: Visits indicate total known visits. ED/UCC VISIT TRACKING (12 MO.) 11/06/2024 11:44 [facility] [place] TYPE: Emergency COMPLAINT: - WEAKNESS 11/04/2024 12:25 [facility] [place] TYPE: Emergency COMPLAINT: - WEAKNESS DIAGNOSES: - Allergy status to other drugs, medicaments and biological substances - Essential (primary) hypertension - Gastro-esophageal reflux disease without esophagitis - Nicotine dependence, unspecified, uncomplicated - Other specified disorders of penis - Unspecified atrial fibrillation - Unspecified osteoarthritis, unspecified site 11/01/2024 10:50 [facility] TYPE: Emergency COMPLAINT: - WEAKNESS DIAGNOSES: - Bee allergy status - Essential (primary) hypertension - Gastro-esophageal reflux disease without esophagitis - Nicotine dependence, unspecified, uncomplicated - Other disturbances of skin sensation - Unspecified atrial fibrillation - Unspecified dementia, unspecified severity, without behavioral disturbance, psychotic disturbance, mood disturbance, and anxiety - Unspecified osteoarthritis, unspecified site 10/31/2024 14:30 [facility] TYPE: Emergency COMPLAINT: - ABDOMINAL PAIN DIAGNOSES: - Bee allergy status - Dysuria - Essential (primary) hypertension - Gastro-esophageal reflux disease without esophagitis - Nicotine dependence, unspecified, uncomplicated - Unspecified atrial fibrillation - Unspecified dementia, unspecified severity, without behavioral disturbance, psychotic disturbance, mood disturbance, and anxiety - Unspecified osteoarthritis, unspecified site 10/30/2024 18:25 [facility] [place] TYPE: Emergency COMPLAINT: - WEAKNESS DIAGNOSES: - Bee allergy status - Essential (primary) hypertension - Gastro-esophageal reflux disease without esophagitis - buttermaker helper (current) use of antibiotics - Nicotine dependence, unspecified, uncomplicated - Other fatigue - Other halfway (current) drug therapy - Unspecified atrial fibrillation - Unspecified dementia, unspecified severity, without behavioral disturbance, psychotic disturbance, mood disturbance, and anxiety - Unspecified osteoarthritis, unspecified site - Weakness 10/30/2024 12:08 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 [place] TYPE: Emergency COMPLAINT: - URINE PROBLEM DIAGNOSES: - Bee allergy status - Essential (primary) hypertension - Gastro-esophageal reflux disease without esophagitis - Nicotine dependence, unspecified, uncomplicated - Other disturbances of skin sensation - Other halfway (current) drug therapy - Pelvic and perineal pain - Unspecified atrial fibrillation - Unspecified osteoarthritis, unspecified site - Urinary tract infection, site not specified 10/29/2024 12:03 [facility] TYPE: Emergency COMPLAINT: - CATH PROBLEM DIAGNOSES: - Bee allergy status - Essential (primary) hypertension - Gastro-esophageal reflux disease without esophagitis - Localized edema - custodial (current) use of antibiotics - Nicotine dependence, unspecified, uncomplicated - Other difficulties with micturition - 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 - Unspecified atrial fibrillation - Unspecified osteoarthritis, unspecified site 10/28/2024 19:26 [facility] TYPE: Emergency COMPLAINT: - CATH ISSUES DIAGNOSES: - Bee allergy status - Essential (primary) hypertension - Gastro-esophageal reflux disease without esophagitis - buttermaker helper (current) use of antithrombotics/antiplatelets - buttermaker helper (current) use of aspirin - Nicotine dependence, unspecified, uncomplicated - Other specified symptoms and signs involving the digestive system and abdomen 10/25/2024 10:54 [facility] TYPE: Emergency COMPLAINT: - NOT FEELING WELL DIAGNOSES: - Bee allergy status - Essential (primary) hypertension - Gastro-esophageal reflux disease without esophagitis - buttermaker helper (current) use of aspirin - Nicotine dependence, unspecified, uncomplicated - 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 - Other specified disorders of penis 10/19/2024 15:10 [facility] TYPE: Emergency COMPLAINT: - PENIS BURNING DIAGNOSES: - Adverse effect of other opioids, initial encounter - Bee allergy status - Dizziness and giddiness - Essential (primary) hypertension - Gastro-esophageal reflux disease without esophagitis - buttermaker helper (current) use of antithrombotics/antiplatelets - custodial (current) use of aspirin - buttermaker helper (current) use of oral hypoglycemic drugs - Nicotine dependence, unspecified, uncomplicated - Other specified disorders of penis - Unspecified atrial fibrillation - Unspecified dementia, unspecified severity, without behavioral disturbance, psychotic disturbance, mood disturbance, and anxiety 10/11/2024 22:50 [facility] TYPE: Emergency COMPLAINT: - CATHETER ISSUES DIAGNOSES: - Bee allergy status - Essential (primary) hypertension - Gastro-esophageal reflux disease without esophagitis - custodial (current) use of antithrombotics/antiplatelets - custodial (current) use of aspirin - buttermaker helper (current) use of oral hypoglycemic drugs - Nicotine dependence, unspecified, uncomplicated - 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 - Other mechanical complication of indwelling urethral catheter, initial encounter - Unspecified atrial fibrillation - Urinary tract infection, site not specified 10/08/2024 15:22 [facility] TYPE: Emergency COMPLAINT: - ABDOMINAL PAIN DIAGNOSES: - Bee allergy status - Chest pain, unspecified - Essential (primary) hypertension - Gastro-esophageal reflux disease without esophagitis - buttermaker helper (current) use of aspirin - custodial (current) use of oral hypoglycemic drugs - Nicotine dependence, unspecified, uncomplicated - 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 - Unspecified abdominal pain - Unspecified atrial fibrillation 10/07/2024 10:58 [facility] TYPE: Emergency COMPLAINT: - CONSTIPATION 10/04/2024 17:02 [facility] TYPE: Emergency COMPLAINT: - ABDOMINAL PAIN DIAGNOSES: - Bee allergy status - Essential (primary) hypertension - Gastro-esophageal reflux disease without esophagitis - buttermaker helper (current) use of antithrombotics/antiplatelets - buttermaker helper (current) use of aspirin - Nicotine dependence, [...] - Gastro-esophageal reflux disease without esophagitis - custodial (current) use of aspirin - custodial (current) use of oral hypoglycemic drugs - Nicotine dependence, unspecified, uncomplicated - Other halfway (current) drug therapy - Unspecified abdominal pain - Unspecified atrial fibrillation - Unspecified cystostomy status - Unspecified dementia, unspecified severity, without behavioral disturbance, psychotic disturbance, mood disturbance, and anxiety 08/20/2024 05:12 [facility] TYPE: Emergency COMPLAINT: - WEAKNESS DIAGNOSES: - Bee allergy status - Constipation, unspecified - Essential (primary) hypertension - Gastro-esophageal reflux disease without esophagitis - custodial (current) use of aspirin - custodial (current) use of oral hypoglycemic drugs - Lower abdominal pain, unspecified - Nicotine dependence, unspecified, uncomplicated - 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
[2024-11-06 21:00] VITALS: BP 129/65
[2024-11-07] MEDS ORDERED: LEVOFLOXACIN750 MG PO (16:58)
[2024-11-07] MEDS ORDERED: CLOPIDOGREL75 MG PO (16:58)
== END 2024-11-06 21:00 | disposition home or self-care (01) ==
LOC: ED 11:43
DX: N48.89 Other specified disorders of penis (principal); I10 Essential (primary) hypertension; K21.9 Gastro-esophageal reflux disease without esophagitis; M19.90 Unspecified osteoarthritis, unspecified site; I48.91 Unspecified atrial fibrillation; F17.200 Nicotine dependence, unspecified, uncomplicated; Z91.030 Bee allergy status; Z79.2 Long term (current) use of antibiotics
CPT/HCPCS: 99283

== ENCOUNTER 2024-11-10 16:54 | Emergency (ER) | payer OTHER, MEDICARE ==
[~2024-11-10] VITALS: Ht 185.4 cm; Wt 70.0 kg
--- OUTSIDE RECORDS SUMMARY | 2024-11-10 17:01 | XMS ---
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 ELoni VISIT COUNT (12 MO.) 34 [facility] ([place] TOTAL 38 NOTE: Visits indicate total known visits. ED/UCC VISIT TRACKING (12 MO.) 11/10/2024 16:55 [facility] [place] TYPE: Emergency COMPLAINT: - BLOOD ISSUE 11/07/2024 14:37 [facility] [place] TYPE: Emergency COMPLAINT: - GENITAL PAIN 11/06/2024 11:44 [facility] [place] TYPE: Emergency COMPLAINT: - WEAKNESS 11/04/2024 12:25 [facility] [place] TYPE: Emergency COMPLAINT: - WEAKNESS DIAGNOSES: - Allergy status to other drugs, medicaments and biological substances - Essential (primary) hypertension - Gastro-esophageal reflux disease without esophagitis - Nicotine dependence, unspecified, uncomplicated - Other specified disorders of penis - Unspecified atrial fibrillation - Unspecified osteoarthritis, unspecified site 11/01/2024 10:50 [facility] [place] TYPE: Emergency COMPLAINT: [...] - Unspecified osteoarthritis, unspecified site 10/30/2024 18:25 [facility] [place] TYPE: Emergency COMPLAINT: - WEAKNESS DIAGNOSES: - Bee allergy status - Essential (primary) hypertension - Gastro-esophageal reflux disease without esophagitis - penitentiary (current) use of antibiotics - Nicotine dependence, unspecified, uncomplicated - Other fatigue - Other [facility] (current) drug therapy - Unspecified atrial fibrillation - Unspecified dementia, unspecified severity, without behavioral disturbance, psychotic disturbance, mood disturbance, and anxiety - Unspecified osteoarthritis, unspecified site - Weakness 10/30/2024 12:08 [facility] [place] TYPE: Emergency COMPLAINT: - WEAKNESS DIAGNOSES: - Bee allergy status - Essential (primary) hypertension - Gastro-esophageal reflux disease without esophagitis - penitentiary (current) use of antibiotics - Nicotine dependence, unspecified, uncomplicated - Other long term care administrator (current) drug therapy - Unspecified atrial fibrillation - Weakness 10/29/2024 19:59 [facility] TYPE: Emergency COMPLAINT: - URINE PROBLEM DIAGNOSES: - Bee allergy status - Essential (primary) hypertension - Gastro-esophageal reflux disease without esophagitis - Nicotine dependence, unspecified, uncomplicated - Other disturbances of skin sensation - Other [facility] (current) drug therapy - Pelvic and perineal pain - Unspecified atrial fibrillation - Unspecified osteoarthritis, unspecified site - Urinary tract infection, site not specified 10/29/2024 12:03 [facility] TYPE: Emergency COMPLAINT: - CATH PROBLEM DIAGNOSES: - Bee allergy status - Essential (primary) hypertension - Gastro-esophageal reflux disease without esophagitis - Localized edema - penitentiary (current) use of antibiotics - Nicotine dependence, unspecified, uncomplicated - Other difficulties with micturition - Other [facility] (current) drug therapy - Unspecified atrial fibrillation - Unspecified osteoarthritis, unspecified site 10/28/2024 19:26 [facility] TYPE: Emergency COMPLAINT: - CATH ISSUES DIAGNOSES: - Bee allergy status - Essential (primary) hypertension - Gastro-esophageal reflux disease without esophagitis - long term care administrator (current) use of antithrombotics/antiplatelets - penitentiary (current) use of aspirin - Nicotine dependence, unspecified, uncomplicated - Other specified symptoms and signs involving the digestive system and abdomen 10/25/2024 10:54 [facility] TYPE: Emergency COMPLAINT: - NOT FEELING WELL DIAGNOSES: - Bee allergy status - Essential (primary) hypertension - Gastro-esophageal reflux disease without esophagitis - penitentiary (current) use of aspirin - Nicotine dependence, unspecified, uncomplicated - Other [facility] (current) drug therapy - Other specified disorders of penis 10/19/2024 15:10 [facility] TYPE: Emergency COMPLAINT: - PENIS BURNING DIAGNOSES: - Adverse effect of other opioids, initial encounter - Bee allergy status - Dizziness and giddiness - Essential (primary) hypertension - Gastro-esophageal reflux disease without esophagitis - penitentiary (current) use of antithrombotics/antiplatelets - penitentiary (current) use of aspirin - long term care administrator (current) use of oral hypoglycemic drugs - Nicotine dependence, unspecified, uncomplicated - Other specified disorders of penis - Unspecified atrial fibrillation - Unspecified dementia, unspecified severity, without behavioral disturbance, psychotic disturbance, mood disturbance, and anxiety 10/11/2024 22:50 [facility] TYPE: Emergency COMPLAINT: - CATHETER ISSUES DIAGNOSES: - Bee allergy status - Essential (primary) hypertension - Gastro-esophageal reflux disease without esophagitis - penitentiary (current) use of antithrombotics/antiplatelets - penitentiary (current) use of aspirin - long term care administrator (current) use of oral hypoglycemic drugs - Nicotine dependence, unspecified, uncomplicated - Other long term care administrator (current) drug therapy - Other mechanical complication of indwelling urethral catheter, initial encounter - Unspecified atrial fibrillation - Urinary tract infection, site not specified 10/08/2024 15:22 [facility] TYPE: Emergency COMPLAINT: - ABDOMINAL PAIN DIAGNOSES: - Bee allergy status - Chest pain, unspecified - Essential (primary) hypertension - Gastro-esophageal reflux disease without esophagitis - long term care administrator (current) use of aspirin - penitentiary (current) use of oral hypoglycemic drugs - Nicotine dependence, unspecified, uncomplicated - Other long term care administrator (current) drug therapy - Unspecified abdominal pain - Unspecified atrial fibrillation 10/07/2024 10:58 [facility] TYPE: Emergency COMPLAINT: - CONSTIPATION 10/04/2024 17:02 [facility] TYPE: Emergency COMPLAINT: - ABDOMINAL PAIN DIAGNOSES: - Bee allergy status - Essential (primary) hypertension - Gastro-esophageal reflux disease without esophagitis - penitentiary (current) use of antithrombotics/antiplatelets - long term care administrator (current) use of aspirin - Nicotine dependence, [...] - Other insect allergy status 09/09/2024 15:51 [facility] [place] TYPE: Emergency COMPLAINT: - CHEST PAIN DIAGNOSES: - Chest pain, unspecified - Essential (primary) hypertension - Gastro-esophageal reflux disease without esophagitis - Nicotine dependence, unspecified, uncomplicated - Other insect allergy status - Unspecified abdominal pain - Unspecified dementia, unspecified severity, without behavioral disturbance, psychotic disturbance, mood disturbance, and anxiety Plus 18 More Visits INPATIENT VISIT TRACKING (12 MO.) [...] - Nicotine dependence, cigarettes, uncomplicated - Other long term care administrator (current) drug therapy - Other obstructive and reflux uropathy - Other retention of urine - Type 2 diabetes mellitus without complications - Unspecified osteoarthritis, unspecified site - Urinary tract infection, site not specified [email or web address]
[2024-11-10 17:17] LABS: BASOPHILS 0.2 % (0.2-1.2); EOSINOPHILS 1.2 % (0.8-7.0); HEMATOCRIT 25.6 % (40.1-51.0); HEMOGLOBIN 7.7 g/dL (13.7-17.5); LYMPHOCYTES 12.5 % (21.8-53.1); MCH 24.3 PG (25.7-32.2); MCHC 30.1 g/dL (32.3-36.5); MCV 80.8 fL (79.0-92.2); NEUTROPHILS 77.8 % (34.0-67.9); PLATELET COUNT 333 K/uL (163-337); RBC 3.17 M/uL (4.63-6.08)
[2024-11-10 17:33] LABS: ALBUMIN/GLOBULIN RATIO 0.94 (1.1-2.4); ANION GAP 10.8 (7-21); BILIRUBIN, TOTAL 0.2 mg/dL (0.2-1.0); BUN/CREATININE RATIO 24.44 (6.0-28.6); CALCIUM 9.6 mg/dL (8.5-10.1); CREATININE, SERUM 0.9 mg/dL (0.70-1.30); POTASSIUM 3.8 mmol/L (3.5-5.1); PROTEIN, TOTAL 6.2 g/dL (6.4-8.2)
[2024-11-10 18:15] VITALS: BP 123/61
== END 2024-11-10 18:15 | disposition home or self-care (01) ==
LOC: ED 16:54
PROVIDERS: Emergency Medicine
DX: D64.89 Other specified anemias (principal); I10 Essential (primary) hypertension; K21.9 Gastro-esophageal reflux disease without esophagitis; F03.90 Unspecified dementia, unspecified severity, without behavioral disturbance, psychotic disturbance, mood disturbance, and anxiety; F17.200 Nicotine dependence, unspecified, uncomplicated; Z91.030 Bee allergy status; Z79.899 Other long term (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
CPT/HCPCS: 36415; 80053; 85025; 99284

== ENCOUNTER 2024-11-12 10:05 | Emergency (ER) | payer OTHER, MEDICARE ==
[~2024-11-12] VITALS: Ht 185.4 cm; Wt 70.0 kg
--- OUTSIDE RECORDS SUMMARY | 2024-11-12 10:12 | XMS ---
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 ELoni VISIT COUNT (12 MO.) 35 [facility] M.C[facility] ([place]) TOTAL 39 NOTE: Visits indicate total known visits. ED/UCC VISIT TRACKING (12 MO.) 11/12/2024 10:06 [facility] TYPE: Emergency COMPLAINT: - WEAKNESS 11/10/2024 16:55 [facility] TYPE: Emergency COMPLAINT: - BLOOD ISSUE DIAGNOSES: - Bee allergy status - Essential (primary) hypertension - Gastro-esophageal reflux disease without esophagitis - Nicotine dependence, unspecified, uncomplicated - Other termite control service representative (current) drug therapy - Other specified anemias - Unspecified dementia, unspecified severity, without behavioral disturbance, psychotic disturbance, mood disturbance, and anxiety 11/07/2024 14:37 [facility] TYPE: Emergency COMPLAINT: - GENITAL PAIN 11/06/2024 11:44 [facility] TYPE: Emergency COMPLAINT: - WEAKNESS DIAGNOSES: - Bee allergy status - Essential (primary) hypertension - Gastro-esophageal reflux disease without esophagitis - rodent exterminator (current) use of antibiotics - Nicotine dependence, unspecified, uncomplicated - Other specified disorders of penis - Unspecified atrial fibrillation - Unspecified osteoarthritis, unspecified site 11/04/2024 12:25 [facility] TYPE: Emergency [...] - Gastro-esophageal reflux disease without esophagitis - rodent exterminator (current) use of antibiotics - Nicotine dependence, unspecified, uncomplicated - Other fatigue - Other prison (current) drug therapy - Unspecified atrial fibrillation - Unspecified dementia, unspecified severity, without behavioral disturbance, psychotic disturbance, mood disturbance, and anxiety - Unspecified osteoarthritis, unspecified site - Weakness 10/30/2024 12:08 [facility] TYPE: Emergency COMPLAINT: - WEAKNESS DIAGNOSES: - Bee allergy status - Essential (primary) hypertension - Gastro-esophageal reflux disease without esophagitis - rodent exterminator (current) use of antibiotics - Nicotine dependence, unspecified, uncomplicated - Other prison (current) drug therapy - Unspecified atrial fibrillation - Weakness 10/29/2024 19:59 [facility] TYPE: Emergency COMPLAINT: - URINE PROBLEM DIAGNOSES: - Bee allergy status - Essential (primary) hypertension - Gastro-esophageal reflux disease without esophagitis - Nicotine dependence, unspecified, uncomplicated - Other disturbances of skin sensation - Other termite control service representative (current) drug therapy - Pelvic and perineal pain - Unspecified atrial fibrillation - Unspecified osteoarthritis, unspecified site - Urinary tract infection, site not specified 10/29/2024 12:03 [facility] TYPE: Emergency COMPLAINT: - CATH PROBLEM DIAGNOSES: - Bee allergy status - Essential (primary) hypertension - Gastro-esophageal reflux disease without esophagitis - Localized edema - rodent exterminator (current) use of antibiotics - Nicotine dependence, unspecified, uncomplicated - Other difficulties with micturition - Other prison (current) drug therapy - Unspecified atrial fibrillation - Unspecified osteoarthritis, unspecified site 10/28/2024 19:26 [facility] TYPE: Emergency COMPLAINT: - CATH ISSUES DIAGNOSES: - Bee allergy status - Essential (primary) hypertension - Gastro-esophageal reflux disease without esophagitis - assisted (current) use of antithrombotics/antiplatelets - assisted (current) use of aspirin - Nicotine dependence, unspecified, uncomplicated - Other specified symptoms and signs involving the digestive system and abdomen 10/25/2024 10:54 [facility] TYPE: Emergency COMPLAINT: - NOT FEELING WELL DIAGNOSES: - Bee allergy status - Essential (primary) hypertension - Gastro-esophageal reflux disease without esophagitis - rodent exterminator (current) use of aspirin - Nicotine dependence, unspecified, uncomplicated - Other prison (current) drug therapy - Other specified disorders of penis 10/19/2024 15:10 [facility] TYPE: Emergency COMPLAINT: - PENIS BURNING DIAGNOSES: - Adverse effect of other opioids, initial encounter - Bee allergy status - Dizziness and giddiness - Essential (primary) hypertension - Gastro-esophageal reflux disease without esophagitis - rodent exterminator (current) use of antithrombotics/antiplatelets - assisted (current) use of aspirin - rodent exterminator (current) use of oral hypoglycemic drugs - Nicotine dependence, unspecified, uncomplicated - Other specified disorders of penis - Unspecified atrial fibrillation - Unspecified dementia, unspecified severity, without behavioral disturbance, psychotic disturbance, mood disturbance, and anxiety 10/11/2024 22:50 [facility] TYPE: Emergency COMPLAINT: - CATHETER ISSUES DIAGNOSES: - Bee allergy status - Essential (primary) hypertension - Gastro-esophageal reflux disease without esophagitis - rodent exterminator (current) use of antithrombotics/antiplatelets - rodent exterminator (current) use of aspirin - assisted (current) use of oral hypoglycemic drugs - Nicotine dependence, unspecified, uncomplicated - Other prison (current) drug therapy - Other mechanical complication of indwelling urethral catheter, initial encounter - Unspecified atrial fibrillation - Urinary tract infection, site not specified 10/08/2024 15:22 [facility] TYPE: Emergency COMPLAINT: - ABDOMINAL PAIN DIAGNOSES: - Bee allergy status - Chest pain, unspecified - Essential (primary) hypertension - Gastro-esophageal reflux disease without esophagitis - assisted (current) use of aspirin - rodent exterminator (current) use of oral hypoglycemic drugs - Nicotine dependence, unspecified, uncomplicated - Other termite control service representative (current) drug therapy - Unspecified abdominal pain - Unspecified atrial fibrillation 10/07/2024 10:58 [facility] TYPE: Emergency COMPLAINT: - CONSTIPATION 10/04/2024 17:02 [facility] TYPE: Emergency COMPLAINT: - ABDOMINAL PAIN DIAGNOSES: - Bee allergy status - Essential (primary) hypertension - Gastro-esophageal reflux disease without esophagitis - rodent exterminator (current) use of antithrombotics/antiplatelets - rodent exterminator (current) use of aspirin - Nicotine dependence, [...] unspecified, uncomplicated - Other insect allergy status Plus 19 More Visits INPATIENT VISIT TRACKING (12 MO.) [facility] DIAGNOSES: - Aneurysm of [...] - Nicotine dependence, cigarettes, uncomplicated - Other prison (current) drug therapy - Other obstructive and reflux uropathy - Other retention of urine - Type 2 diabetes mellitus without complications - Unspecified osteoarthritis, unspecified site - Urinary tract infection, site not specified [email or web address]
[2024-11-12] MEDS ORDERED: LIDOCAINE HCL 4% 50 ML BTL TOP SCH (10:45)
[2024-11-12] MEDS ORDERED: LIDOCAINE30 G1 TOP (10:47)
[2024-11-12 15:50] VITALS: BP 138/74
== END 2024-11-12 15:50 | disposition home or self-care (01) ==
LOC: ED 10:05
DX: N34.2 Other urethritis (principal); I10 Essential (primary) hypertension; K21.9 Gastro-esophageal reflux disease without esophagitis; M19.90 Unspecified osteoarthritis, unspecified site; I48.91 Unspecified atrial fibrillation; F17.210 Nicotine dependence, cigarettes, uncomplicated; Z91.030 Bee allergy status; Z79.899 Other long term (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
CPT/HCPCS: 99283

== ENCOUNTER 2024-11-14 20:11 | Emergency (ER) | payer OTHER, MEDICARE ==
[~2024-11-14] VITALS: Ht 185.4 cm; Wt 76.0 kg
[~2024-11-14 20:11] MED LIST changes: +LIDOCAINE30 G1 TOP
--- OUTSIDE RECORDS SUMMARY | 2024-11-14 20:14 | XMS ---
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 ELoni VISIT COUNT (12 MO.) 36 FELIX [facility]. Avis JaramilloJamar ([place]) TOTAL 40 NOTE: Visits indicate total known visits. ED/UCC VISIT TRACKING (12 MO.) 11/14/2024 20:12 [facility] [place] TYPE: Emergency COMPLAINT: - PAIN 11/12/2024 10:06 [facility] TYPE: Emergency COMPLAINT: - WEAKNESS DIAGNOSES: - Bee allergy status - Essential (primary) hypertension - Gastro-esophageal reflux disease without esophagitis - Nicotine dependence, cigarettes, uncomplicated - Other jail (current) drug therapy - Other specified disorders of penis - Other urethritis - Unspecified atrial fibrillation - Unspecified osteoarthritis, unspecified site 11/10/2024 16:55 [facility] TYPE: Emergency COMPLAINT: - BLOOD ISSUE DIAGNOSES: - Bee allergy status - Essential (primary) hypertension - Gastro-esophageal reflux disease without esophagitis - Nicotine dependence, unspecified, uncomplicated - Other jail (current) drug therapy - Other specified anemias - Unspecified dementia, unspecified severity, without behavioral disturbance, psychotic disturbance, mood disturbance, and anxiety 11/07/2024 14:37 [facility] TYPE: Emergency COMPLAINT: - GENITAL PAIN 11/06/2024 11:44 [facility] TYPE: Emergency COMPLAINT: - WEAKNESS DIAGNOSES: - Bee allergy status - Essential (primary) hypertension - Gastro-esophageal reflux disease without esophagitis - [facility] (current) use of antibiotics - Nicotine dependence, unspecified, uncomplicated - Other specified disorders of penis - Unspecified atrial fibrillation - Unspecified osteoarthritis, unspecified site 11/04/2024 12:25 [facility] [place] TYPE: Emergency COMPLAINT: - WEAKNESS [...] press operator (current) use of antibiotics - Nicotine dependence, unspecified, uncomplicated - Other fatigue - Other terminal press operator (current) drug therapy - Unspecified atrial fibrillation - Unspecified dementia, unspecified severity, without behavioral disturbance, psychotic disturbance, mood disturbance, and anxiety - Unspecified osteoarthritis, unspecified site - Weakness 10/30/2024 12:08 [facility] [place] TYPE: Emergency COMPLAINT: - WEAKNESS DIAGNOSES: - Bee allergy status - Essential (primary) hypertension - Gastro-esophageal reflux disease without esophagitis - [facility] (current) use of antibiotics - Nicotine dependence, unspecified, uncomplicated - Other terminal press operator (current) drug therapy - Unspecified atrial fibrillation - Weakness 10/29/2024 19:59 [facility] TYPE: Emergency COMPLAINT: - URINE PROBLEM DIAGNOSES: - Bee allergy status - Essential (primary) hypertension - Gastro-esophageal reflux disease without esophagitis - Nicotine dependence, unspecified, uncomplicated - Other disturbances of skin sensation - Other jail (current) drug therapy - Pelvic and perineal pain - Unspecified atrial fibrillation - Unspecified osteoarthritis, unspecified site - Urinary tract infection, site not specified 10/29/2024 12:03 [facility] TYPE: Emergency COMPLAINT: - CATH PROBLEM DIAGNOSES: - Bee allergy status - Essential (primary) hypertension - Gastro-esophageal reflux disease without esophagitis - Localized edema - terminal press operator (current) use of antibiotics - Nicotine dependence, unspecified, uncomplicated - Other difficulties with micturition - Other terminal press operator (current) drug therapy - Unspecified atrial fibrillation - Unspecified osteoarthritis, unspecified site 10/28/2024 19:26 [facility] TYPE: Emergency COMPLAINT: - CATH ISSUES DIAGNOSES: - Bee allergy status - Essential (primary) hypertension - Gastro-esophageal reflux disease without esophagitis - [facility] (current) use of antithrombotics/antiplatelets - [facility] (current) use of aspirin - Nicotine dependence, unspecified, uncomplicated - Other specified symptoms and signs involving the digestive system and abdomen 10/25/2024 10:54 [facility] TYPE: Emergency COMPLAINT: - NOT FEELING WELL DIAGNOSES: - Bee allergy status - Essential (primary) hypertension - Gastro-esophageal reflux disease without esophagitis - terminal press operator (current) use of aspirin - Nicotine dependence, unspecified, uncomplicated - Other jail (current) drug therapy - Other specified disorders [...] press operator (current) use of aspirin - [facility] (current) use of oral hypoglycemic drugs - [...] press operator (current) use of aspirin - [facility] (current) use of oral hypoglycemic drugs - [...] - Nicotine dependence, unspecified, uncomplicated - Other jail (current) drug therapy - Unspecified abdominal pain [...] atrial fibrillation - Unspecified osteoarthritis, unspecified site Plus 20 More Visits INPATIENT VISIT TRACKING (12 MO.) 09/05/2024 07:11 [facility] Matthew TYPE: Internal Medicine DIAGNOSES: - Aneurysm of [...] - Nicotine dependence, cigarettes, uncomplicated - Other jail (current) drug therapy - Other obstructive and reflux uropathy - Other retention of urine - Type 2 diabetes mellitus without complications - Unspecified osteoarthritis, unspecified site - Urinary tract infection, site not specified [email or web address]
[2024-11-14] MEDS ORDERED: LIDOCAINE 2% VISCOUS 6 ML SYR TOP ONE (20:30)
[2024-11-14] MEDS ORDERED: TOPICAINE 5113 GM TOP (20:54)
[2024-11-14 22:19] VITALS: BP 133/65
== END 2024-11-14 22:36 | disposition home or self-care (01) ==
LOC: ED 20:11
DX: N34.2 Other urethritis (principal); I10 Essential (primary) hypertension; K21.9 Gastro-esophageal reflux disease without esophagitis; F17.200 Nicotine dependence, unspecified, uncomplicated; Z79.02 Long term (current) use of antithrombotics/antiplatelets; Z91.030 Bee allergy status
CPT/HCPCS: 99283

== ENCOUNTER 2024-11-19 09:16 | Emergency (ER) | payer OTHER, MEDICARE ==
[~2024-11-19] VITALS: Ht 185.4 cm; Wt 76.0 kg
[~2024-11-19 09:16] MED LIST changes: +TOPICAINE 5113 GM TOP
--- OUTSIDE RECORDS SUMMARY | 2024-11-19 09:22 | XMS ---
PreManage Notification: TIEN ESPINO Security Director Card Events No recent Security Events currently on file CRITERIA MET - 6 ED Visits in 6 Months - Group Notification - [facility] - 2 Visits in 30 Days CARE PROVIDERS -, [facility]ist: Mig Welder Current [place] PHONE: [phone] [facility] Current PHONE: [phone] DWAYNE MILLS Nurse Practitioner Current PHONE: [phone] Anaya has no Care Guidelines for this patient. ELoni VISIT COUNT (12 MO.) 37 FELIX Oshea [facility]. Avis JaramilloJamar ([place]) TOTAL 41 NOTE: Visits indicate total known visits. ED/UCC VISIT TRACKING (12 MO.) 11/19/2024 09:17 [facility] [place] TYPE: Emergency COMPLAINT: - MEDICAL 11/14/2024 20:12 [facility] [place] TYPE: Emergency COMPLAINT: - PAIN DIAGNOSES: - Bee allergy status - Essential (primary) hypertension - Gastro-esophageal reflux disease without esophagitis - [facility] (current) use of antithrombotics/antiplatelets - Nicotine dependence, unspecified, uncomplicated - Other specified disorders of penis - Other urethritis 11/12/2024 10:06 [facility] [place] TYPE: Emergency COMPLAINT: - WEAKNESS DIAGNOSES: - Bee allergy status - Essential (primary) hypertension - Gastro-esophageal reflux disease without esophagitis - Nicotine dependence, cigarettes, uncomplicated - Other skilled nursing (current) drug therapy - Other specified disorders of penis - Other urethritis - Unspecified atrial fibrillation - Unspecified osteoarthritis, unspecified site 11/10/2024 16:55 [facility] [place] TYPE: Emergency COMPLAINT: - BLOOD ISSUE DIAGNOSES: - Bee allergy status - Essential (primary) hypertension - Gastro-esophageal reflux disease without esophagitis - Nicotine dependence, unspecified, uncomplicated - Other termite treater helper (current) drug therapy - Other specified anemias - Unspecified dementia, unspecified severity, without behavioral disturbance, psychotic disturbance, mood disturbance, and anxiety 11/07/2024 14:37 [facility] [place] TYPE: Emergency COMPLAINT: - GENITAL PAIN 11/06/2024 11:44 [facility]ELIX Al [place] TYPE: Emergency COMPLAINT: - WEAKNESS DIAGNOSES: - Bee allergy status - Essential (primary) hypertension - Gastro-esophageal reflux disease without esophagitis - equipment operator intermodal yard (current) use of antibiotics - Nicotine dependence, [...] - Gastro-esophageal reflux disease without esophagitis - MCFP (current) use of antibiotics - Nicotine dependence, unspecified, uncomplicated - Other fatigue - Other termite treater helper (current) drug therapy - Unspecified atrial fibrillation - Unspecified dementia, unspecified severity, without behavioral disturbance, psychotic disturbance, mood disturbance, and anxiety - Unspecified osteoarthritis, unspecified site - Weakness 10/30/2024 12:08 [facility] [place] TYPE: Emergency COMPLAINT: - WEAKNESS DIAGNOSES: - Bee allergy status - Essential (primary) hypertension - Gastro-esophageal reflux disease without esophagitis - equipment operator intermodal yard (current) use of antibiotics - Nicotine dependence, unspecified, uncomplicated - Other termite treater helper (current) drug therapy - Unspecified atrial fibrillation - Weakness 10/29/2024 19:59 [facility] [place] TYPE: Emergency COMPLAINT: - URINE PROBLEM DIAGNOSES: - Bee allergy status - Essential (primary) hypertension - Gastro-esophageal reflux disease without esophagitis - Nicotine dependence, unspecified, uncomplicated - Other disturbances of skin sensation - Other skilled nursing (current) drug therapy - Pelvic and perineal pain - Unspecified atrial fibrillation - Unspecified osteoarthritis, unspecified site - Urinary tract infection, site not specified 10/29/2024 12:03 [facility] [place] TYPE: Emergency COMPLAINT: - CATH PROBLEM DIAGNOSES: - Bee allergy status - Essential (primary) hypertension - Gastro-esophageal reflux disease without esophagitis - Localized edema - MCFP (current) use of antibiotics - Nicotine dependence, unspecified, uncomplicated - Other difficulties with micturition - Other skilled nursing (current) drug therapy - Unspecified atrial fibrillation - Unspecified osteoarthritis, unspecified site 10/28/2024 19:26 [facility] Al [place] TYPE: Emergency COMPLAINT: - CATH ISSUES DIAGNOSES: - Bee allergy status - Essential (primary) hypertension - Gastro-esophageal reflux disease without esophagitis - [facility]FP (current) use of antithrombotics/antiplatelets - equipment operator intermodal yard (current) use of aspirin - Nicotine dependence, unspecified, uncomplicated - Other specified symptoms and signs involving the digestive system and abdomen 10/25/2024 10:54 [facility]EL[facility] Al [place] TYPE: Emergency COMPLAINT: - NOT FEELING WELL DIAGNOSES: - Bee allergy status - Essential (primary) hypertension - Gastro-esophageal reflux disease without esophagitis - equipment operator intermodal yard (current) use of aspirin - Nicotine dependence, unspecified, uncomplicated - Other termite treater helper (current) drug therapy - Other specified disorders of penis 10/19/2024 15:10 [facility] Al [place] TYPE: Emergency COMPLAINT: - PENIS BURNING DIAGNOSES: - Adverse effect of other opioids, initial encounter - Bee allergy status - Dizziness and giddiness - Essential (primary) hypertension - Gastro-esophageal reflux disease without esophagitis - [facility] (current) use of antithrombotics/antiplatelets - MCFP (current) use of aspirin - equipment operator [...] equipment operator intermodal yard (current) use of antithrombotics/antiplatelets - equipment operator intermodal yard (current) use of aspirin - [facility]FP (current) use of oral hypoglycemic drugs - Nicotine dependence, unspecified, uncomplicated - Other termite treater helper (current) drug therapy - Other mechanical complication of indwelling urethral catheter, initial encounter - Unspecified atrial fibrillation - Urinary tract infection, site not specified 10/08/2024 15:22 [facility] Al [place] TYPE: Emergency COMPLAINT: - ABDOMINAL PAIN DIAGNOSES: - Bee allergy status - Chest pain, unspecified - Essential (primary) hypertension - Gastro-esophageal reflux disease without esophagitis - MCFP (current) use of aspirin - equipment operator intermodal yard (current) use of oral hypoglycemic drugs - Nicotine dependence, unspecified, uncomplicated - Other skilled nursing (current) drug therapy - Unspecified abdominal pain - Unspecified atrial fibrillation 10/07/2024 10:58 [facility] Al [place] TYPE: Emergency COMPLAINT: - CONSTIPATION [facility] COMPLAINT: - ABDOMINAL PAIN DIAGNOSES: - Bee allergy status - Essential (primary) hypertension - Gastro-esophageal reflux disease without esophagitis - [facility]FP (current) use of antithrombotics/antiplatelets - equipment operator intermodal yard (current) use of aspirin - Nicotine dependence, unspecified, uncomplicated - Other chronic pain - Unspecified abdominal pain - Unspecified atrial fibrillation - Upper abdominal pain, unspecified Plus 21 More Visits INPATIENT VISIT TRACKING (12 MO.) 09/05/2024 07:11 [facility] Matthew TYPE: Internal Medicine DIAGNOSES: [...] - Nicotine dependence, cigarettes, uncomplicated - Other skilled nursing (current) drug therapy - Other obstructive and reflux uropathy - Other retention of urine - Type 2 diabetes mellitus without complications - Unspecified osteoarthritis, unspecified site - Urinary tract infection, site not specified [id number]
[2024-11-19 16:16] VITALS: BP 124/80
== END 2024-11-19 16:16 | disposition home or self-care (01) ==
LOC: ED 09:16
DX: N48.89 Other specified disorders of penis (principal); F03.90 Unspecified dementia, unspecified severity, without behavioral disturbance, psychotic disturbance, mood disturbance, and anxiety; I10 Essential (primary) hypertension; K21.9 Gastro-esophageal reflux disease without esophagitis; F17.200 Nicotine dependence, unspecified, uncomplicated; Z96.0 Presence of urogenital implants; Z79.02 Long term (current) use of antithrombotics/antiplatelets; Z91.030 Bee allergy status
CPT/HCPCS: 99283

== ENCOUNTER 2024-12-07 18:12 | Emergency (ER) | payer OTHER, MEDICARE ==
[~2024-12-07] VITALS: Ht 185.4 cm; Wt 63.0 kg
--- OUTSIDE RECORDS SUMMARY | 2024-12-07 18:19 | XMS ---
PreManage Notification: TIEN ESPINO Security Registered Respiratory Therapist Events No recent Security Events currently on file CRITERIA MET - 6 ED Visits in 6 Months - Group Notification - [facility] - 2 Visits in 30 Days CARE PROVIDERS -, [facility]ist: Documentation Coordinator Current [place] PHONE: [phone] [facility] Current PHONE: [phone] DWAYNE MILLS Nurse Practitioner Current PHONE: [phone] Anaya has no Care Guidelines for this patient. ELoni VISIT COUNT (12 MO.) 36 FELIX Oshea [facility]. Avis JaramilloJamar ([place]) TOTAL 40 NOTE: Visits indicate total known visits. ED/UCC VISIT TRACKING (12 MO.) 12/07/2024 18:13 [facility] [place] TYPE: Emergency COMPLAINT: - MEDICATION REFILL/CHEST PAIN 11/27/2024 22:52 [facility] Al [place] TYPE: Emergency COMPLAINT: - CATHETER PROBLEMS DIAGNOSES: - Bee allergy status - Essential (primary) hypertension - Nicotine dependence, unspecified, uncomplicated - Other urethritis - Unspecified atrial fibrillation - Unspecified osteoarthritis, unspecified site 11/19/2024 09:17 [facility] [place] TYPE: Emergency COMPLAINT: - GENITAL PROBLEM DIAGNOSES: - Bee allergy status - Essential (primary) hypertension - Gastro-esophageal reflux disease without esophagitis - care home (current) use of antithrombotics/antiplatelets - Nicotine dependence, unspecified, uncomplicated - Other specified disorders of penis - Presence of urogenital implants - Unspecified dementia, unspecified severity, without behavioral disturbance, psychotic disturbance, mood disturbance, and anxiety 11/14/2024 20:12 [facility] [place] TYPE: Emergency COMPLAINT: - PAIN DIAGNOSES: - Bee allergy status - Essential (primary) hypertension - Gastro-esophageal reflux disease without esophagitis - terminologist (current) use of antithrombotics/antiplatelets - Nicotine dependence, unspecified, uncomplicated - Other specified disorders of penis - Other urethritis 11/12/2024 10:06 [facility] [place] TYPE: Emergency COMPLAINT: - WEAKNESS DIAGNOSES: - Bee allergy status - Essential (primary) hypertension - Gastro-esophageal reflux disease without esophagitis - Nicotine dependence, cigarettes, uncomplicated - Other terminologist (current) drug therapy - Other specified disorders of penis - Other urethritis - Unspecified atrial fibrillation - Unspecified osteoarthritis, unspecified site 11/10/2024 16:55 [facility] [place] TYPE: Emergency COMPLAINT: - BLOOD ISSUE DIAGNOSES: - Bee allergy status - Essential (primary) hypertension - Gastro-esophageal reflux disease without esophagitis - Nicotine dependence, unspecified, uncomplicated - Other custodial (current) drug therapy - Other specified anemias - Unspecified dementia, unspecified severity, without behavioral disturbance, psychotic disturbance, mood disturbance, and anxiety 11/07/2024 14:37 [facility] [place] TYPE: Emergency COMPLAINT: - GENITAL PAIN 11/06/2024 11:44 [facility] [place] TYPE: Emergency COMPLAINT: - WEAKNESS DIAGNOSES: - Bee allergy status - Essential (primary) hypertension - Gastro-esophageal reflux disease without esophagitis - terminologist (current) use of antibiotics - Nicotine dependence, [...] - Gastro-esophageal reflux disease without esophagitis - care home (current) use of antibiotics - Nicotine dependence, unspecified, uncomplicated - Other fatigue - Other terminologist (current) drug therapy - Unspecified atrial fibrillation - Unspecified dementia, unspecified severity, without behavioral disturbance, psychotic disturbance, mood disturbance, and anxiety - Unspecified osteoarthritis, unspecified site - Weakness 10/30/2024 12:08 [facility] Al [place] TYPE: Emergency COMPLAINT: - WEAKNESS DIAGNOSES: - Bee allergy status - Essential (primary) hypertension - Gastro-esophageal reflux disease without esophagitis - care home (current) use of antibiotics - Nicotine dependence, unspecified, uncomplicated - Other custodial (current) drug therapy - Unspecified atrial fibrillation - Weakness 10/29/2024 19:59 [facility]ELIX Al [place] TYPE: Emergency COMPLAINT: - URINE PROBLEM DIAGNOSES: - Bee allergy status - Essential (primary) hypertension - Gastro-esophageal reflux disease without esophagitis - Nicotine dependence, unspecified, uncomplicated - Other disturbances of skin sensation - Other terminologist (current) drug therapy - Pelvic and perineal pain - Unspecified atrial fibrillation - Unspecified osteoarthritis, unspecified site - Urinary tract infection, site not specified 10/29/2024 12:03 [facility]ELIX Al [place] TYPE: Emergency COMPLAINT: - CATH PROBLEM DIAGNOSES: - Bee allergy status - Essential (primary) hypertension - Gastro-esophageal reflux disease without esophagitis - Localized edema - terminologist (current) use of antibiotics - Nicotine dependence, unspecified, uncomplicated - Other difficulties with micturition - Other terminologist (current) drug therapy - Unspecified atrial fibrillation - Unspecified osteoarthritis, unspecified site 10/28/2024 19:26 [facility]ELIX Al [place] TYPE: Emergency COMPLAINT: - CATH ISSUES DIAGNOSES: - Bee allergy status - Essential (primary) hypertension - Gastro-esophageal reflux disease without esophagitis - care home (current) use of antithrombotics/antiplatelets - care home (current) use of aspirin - Nicotine dependence, unspecified, uncomplicated - Other specified symptoms and signs involving the digestive system and abdomen 10/25/2024 10:54 [facility] Al [place] TYPE: Emergency COMPLAINT: - NOT FEELING WELL DIAGNOSES: - Bee allergy status - Essential (primary) hypertension - Gastro-esophageal reflux disease without esophagitis - terminologist (current) use of aspirin - Nicotine dependence, unspecified, uncomplicated - Other custodial (current) drug therapy - Other specified disorders of penis 10/19/2024 15:10 [facility]ELIX Al [place] TYPE: Emergency COMPLAINT: - PENIS BURNING DIAGNOSES: - Adverse effect of other opioids, initial encounter - Bee allergy status - Dizziness and giddiness - Essential (primary) hypertension - Gastro-esophageal reflux disease without esophagitis - care home (current) use of antithrombotics/antiplatelets - care home (current) use of aspirin - care home (current) use of oral hypoglycemic drugs - Nicotine dependence, unspecified, uncomplicated - Other specified disorders of penis - Unspecified atrial fibrillation - Unspecified dementia, unspecified severity, without behavioral disturbance, psychotic disturbance, mood disturbance, and anxiety 10/11/2024 22:50 [facility] Al [place] TYPE: Emergency COMPLAINT: - CATHETER ISSUES DIAGNOSES: - Bee allergy status - Essential (primary) hypertension - Gastro-esophageal reflux disease without esophagitis - terminologist (current) use of antithrombotics/antiplatelets - care home (current) use of aspirin - care home (current) use of oral hypoglycemic drugs - Nicotine dependence, unspecified, uncomplicated - Other custodial (current) drug therapy - Other mechanical complication of indwelling urethral catheter, initial encounter - Unspecified atrial fibrillation - Urinary tract infection, site not specified 10/08/2024 15:[address] [facility] [place] TYPE: Emergency COMPLAINT: - ABDOMINAL PAIN DIAGNOSES: - Bee allergy status - Chest pain, unspecified - Essential (primary) hypertension - Gastro-esophageal reflux disease without esophagitis - care home (current) use of aspirin - care home (current) use of oral hypoglycemic drugs - Nicotine dependence, unspecified, uncomplicated - Other custodial (current) drug therapy - Unspecified abdominal pain - Unspecified atrial fibrillation Plus 20 More Visits INPATIENT VISIT TRACKING (12 MO.) [facility]24 [facility] DIAGNOSES: - Aneurysm of the descending thoracic aorta, without rupture [id number]
[2024-12-07 18:39] LABS: BASOPHILS 0.1 % (0.2-1.2); EOSINOPHILS 1.0 % (0.8-7.0); LYMPHOCYTES 14.7 % (21.8-53.1); MCH 22.3 PG (25.7-32.2); MCHC 29.1 g/dL (32.3-36.5); MCV 76.6 fL (79.0-92.2); MONOCYTES 8.6 % (5.3-12.2); NEUTROPHILS 75.3 % (34.0-67.9); RBC 3.59 M/uL (4.63-6.08)
[2024-12-07 18:55] LABS: ALT (SGPT) 13.0 U/L (14-59); AST (SGOT) 4.0 U/L (15-37); GLOMERULAR FILTRATION RATE,EST 85.0 mL/min (>60); PROTEIN, TOTAL 6.5 g/dL (6.4-8.2); UREA NITROGEN 20.0 mg/dL (7-18)
[2024-12-07] MEDS ORDERED: PLAVIX75 MG PO (19:59)
[2024-12-07] MEDS ORDERED: CLOPIDOGREL BISULFATE 75 MG TAB PO ONE (20:00)
[2024-12-07 20:19] VITALS: BP 123/60
--- NOTE | 2024-12-09 10:48 | EKG ---
[facility] [address] [facility] [facility] [place] [address] Signed Sinus rhythm with premature atrial complexes Right bundle branch block Left anterior fascicular block Bifascicular block Anterolateral infarct , age undetermined Abnormal ECG Confirmed by José Ojeda DO ([id number]) on 12/09/2024 10:48:33 AM Electronically Signed By: JOSÉ OJEDA DO 12/09/24 1048 PATIENT NAME: CHRISTINE ESPINOMIKAL MUNIZ Electrocardiogram DATE OF : 47 PHYSICIAN: JOSÉ OJEDA DO REPORT #: [id number] REPORT IS CONFIDENTIAL AND NOT TO BE RELEASED WITHOUT AUTHORIZATION
== END 2024-12-07 20:20 | disposition home or self-care (01) ==
LOC: ED 18:12
PROVIDERS: Emergency Medicine
DX: Z76.0 Encounter for issue of repeat prescription (principal); I10 Essential (primary) hypertension; F03.90 Unspecified dementia, unspecified severity, without behavioral disturbance, psychotic disturbance, mood disturbance, and anxiety; F17.200 Nicotine dependence, unspecified, uncomplicated; Z91.030 Bee allergy status; Z79.899 Other long term (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
CPT/HCPCS: 36415; 71045; 80053; 83735; 84484; 85025; 93005; 93010; 99285-25

== ENCOUNTER 2024-12-21 10:12 | Emergency (ER) | payer OTHER, MEDICARE ==
[~2024-12-21] VITALS: Ht 185.4 cm; Wt 65.8 kg
[~2024-12-21 10:12] MED LIST changes: +MEMANTINE HCL10 MG PO; +PLAVIX75 MG PO; +PROTONIX40 M1 PO; +VAZALORE81 MG PO
--- OUTSIDE RECORDS SUMMARY | 2024-12-21 10:17 | XMS ---
PreManage Notification: TIEN ESPINO Security Director Commercial Sales Events No recent Security Events currently on file CRITERIA MET - 6 ED Visits in 6 Months - Group Notification - [facility] - 2 Visits in 30 Days CARE PROVIDERS -, [facility]ist: Senior Marketing Associate Current [place] PHONE: [phone] [facility] Current PHONE: [phone] DWAYNE MILLS Nurse Practitioner Current PHONE: [phone] Anaya has no Care Guidelines for this patient. ELoni VISIT COUNT (12 MO.) 37 FELIX Cody 3 [facility] Avis JaramilloJamar ([place]) TOTAL 40 NOTE: Visits indicate total known visits. ED/UCC VISIT TRACKING (12 MO.) 12/21/2024 10:13 [facility]ELIX Al [place] TYPE: Emergency COMPLAINT: - GROIN PAIN/BURN 12/07/2024 18:13 [facility] Al [place] TYPE: Emergency COMPLAINT: - MEDICATION REFILL/CHEST PAIN DIAGNOSES: - Bee allergy status - Encounter for issue of repeat prescription - Essential (primary) hypertension - Nicotine dependence, unspecified, uncomplicated - Other senior care (current) drug therapy - Unspecified dementia, unspecified severity, without behavioral disturbance, psychotic disturbance, mood disturbance, and anxiety 11/27/2024 22:52 [facility] Al [place] TYPE: Emergency [...] without esophagitis - jail (current) use of antithrombotics/antiplatelets - Nicotine dependence, unspecified, uncomplicated - Other specified disorders of penis - Presence of urogenital implants - Unspecified dementia, unspecified severity, without behavioral disturbance, psychotic disturbance, mood disturbance, and anxiety 11/14/2024 20:12 [facility] Al [place] TYPE: Emergency COMPLAINT: - PAIN DIAGNOSES: - Bee allergy status - Essential (primary) hypertension - Gastro-esophageal reflux disease without esophagitis - terrazzo polisher helper (current) use of antithrombotics/antiplatelets - Nicotine dependence, unspecified, uncomplicated - Other specified disorders of penis - Other urethritis 11/12/2024 10:06 FELIX [facility] [place] TYPE: Emergency [...] Nicotine dependence, unspecified, uncomplicated - Other rn child (current) drug therapy - Other specified anemias - Unspecified dementia, unspecified severity, without behavioral disturbance, psychotic disturbance, mood disturbance, and anxiety 11/07/2024 14:37 [facility] [place] [facility] [place] TYPE: Emergency COMPLAINT: - GENITAL PAIN 11/06/2024 11:44 [facility] [place] [facility] [place] TYPE: Emergency COMPLAINT: - WEAKNESS DIAGNOSES: - Bee allergy status - Essential (primary) hypertension - Gastro-esophageal reflux disease without esophagitis - terrazzo polisher helper (current) use of antibiotics - Nicotine dependence, unspecified, uncomplicated - Other specified disorders of penis - Unspecified atrial fibrillation - Unspecified osteoarthritis, unspecified site 11/04/2024 12:25 [facility] [place] [facility] [place] TYPE: Emergency COMPLAINT: - WEAKNESS DIAGNOSES: - Allergy status to other drugs, medicaments and biological substances - Essential (primary) hypertension - Gastro-esophageal reflux disease without esophagitis - Nicotine dependence, unspecified, uncomplicated - Other specified disorders of penis - Unspecified atrial fibrillation - Unspecified osteoarthritis, unspecified site 11/01/2024 10:50 [facility] [place] [facility] [place] TYPE: Emergency COMPLAINT: - WEAKNESS [...] - Gastro-esophageal reflux disease without esophagitis - terrazzo polisher helper (current) use of antibiotics - Nicotine dependence, unspecified, uncomplicated - Other fatigue - Other rn child (current) drug therapy - Unspecified atrial fibrillation - Unspecified dementia, unspecified severity, without behavioral disturbance, psychotic disturbance, mood disturbance, and anxiety - Unspecified osteoarthritis, unspecified site - Weakness 10/30/2024 12:08 [facility]ELIX [place] TYPE: Emergency COMPLAINT: - WEAKNESS DIAGNOSES: - Bee allergy status - Essential (primary) hypertension - Gastro-esophageal reflux disease without esophagitis - jail (current) use of antibiotics - Nicotine dependence, unspecified, uncomplicated - Other senior care (current) drug therapy - Unspecified atrial fibrillation - Weakness 10/29/2024 19:59 [facility] [place] [facility] [place] TYPE: Emergency COMPLAINT: - URINE PROBLEM DIAGNOSES: - Bee allergy status - Essential (primary) hypertension - Gastro-esophageal reflux disease without esophagitis - Nicotine dependence, unspecified, uncomplicated - Other disturbances of skin sensation - Other senior care (current) drug therapy - Pelvic and perineal pain - Unspecified atrial fibrillation - Unspecified osteoarthritis, unspecified site - Urinary tract infection, site not specified 10/29/2024 12:03 FELIX [place] H[facility] [place] TYPE: Emergency COMPLAINT: - CATH PROBLEM DIAGNOSES: - Bee allergy status - Essential (primary) hypertension - Gastro-esophageal reflux disease without esophagitis - Localized edema - jail (current) use of antibiotics - Nicotine dependence, unspecified, uncomplicated - Other difficulties with micturition - Other rn child (current) drug therapy - Unspecified atrial fibrillation - Unspecified osteoarthritis, unspecified site 10/28/2024 19:26 [facility] [place] TYPE: Emergency COMPLAINT: - CATH ISSUES DIAGNOSES: - Bee allergy status - Essential (primary) hypertension - Gastro-esophageal reflux disease without esophagitis - terrazzo polisher helper (current) use of antithrombotics/antiplatelets - jail (current) use of aspirin - Nicotine dependence, unspecified, uncomplicated - Other specified symptoms and signs involving the digestive system and abdomen 10/25/2024 10:54 [facility] [place] TYPE: Emergency COMPLAINT: - NOT FEELING WELL DIAGNOSES: - Bee allergy status - Essential (primary) hypertension - Gastro-esophageal reflux disease without esophagitis - terrazzo polisher helper (current) use of aspirin - Nicotine dependence, unspecified, uncomplicated - Other senior care (current) drug therapy - Other specified disorders of penis 10/19/2024 15:10 [facility]ELIX Al [place] TYPE: Emergency COMPLAINT: - PENIS BURNING DIAGNOSES: - Adverse effect of other opioids, initial encounter - Bee allergy status - Dizziness and giddiness - Essential (primary) hypertension - Gastro-esophageal reflux disease without esophagitis - terrazzo polisher helper (current) use of antithrombotics/antiplatelets - terrazzo polisher helper (current) use of aspirin - jail (current) use of oral hypoglycemic drugs - Nicotine dependence, unspecified, uncomplicated - Other specified disorders of penis - Unspecified atrial fibrillation - Unspecified dementia, unspecified severity, without behavioral disturbance, psychotic disturbance, mood disturbance, and anxiety 10/11/2024 22:[address] [facility] [facility] [place] TYPE: Emergency COMPLAINT: - CATHETER ISSUES DIAGNOSES: - Bee allergy status - Essential (primary) hypertension - Gastro-esophageal reflux disease without esophagitis - jail (current) use of antithrombotics/antiplatelets - terrazzo polisher helper (current) use of aspirin - jail (current) use of oral hypoglycemic drugs - Nicotine dependence, unspecified, uncomplicated - Other senior care (current) drug therapy - Other mechanical complication of indwelling urethral catheter, initial encounter - Unspecified atrial fibrillation - Urinary tract infection, site not specified Plus 20 More Visits INPATIENT VISIT TRACKING (12 MO.) 09/05/2024 07:[facility] DIAGNOSES: - Aneurysm of the descending thoracic aorta, without rupture [id number]
[2024-12-21] MEDS ORDERED: LIDOCAINE 2% VISCOUS 6 ML SYR TOP ONE (10:45)
[2024-12-21] MEDS ORDERED: LIDOCAINE HCL100 ML URETHRAL (11:54)
[2024-12-21 12:00] VITALS: BP 113/49
== END 2024-12-21 12:00 | disposition home or self-care (01) ==
LOC: ED 10:12
DX: N48.89 Other specified disorders of penis (principal); I10 Essential (primary) hypertension; K21.9 Gastro-esophageal reflux disease without esophagitis; I48.91 Unspecified atrial fibrillation; F17.200 Nicotine dependence, unspecified, uncomplicated; Z91.030 Bee allergy status; Z79.899 Other long term (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
CPT/HCPCS: 99283

== ENCOUNTER 2024-12-23 12:55 | Emergency (ER) | payer OTHER, MEDICARE ==
[~2024-12-23] VITALS: Ht 185.4 cm; Wt 64.0 kg
[~2024-12-23 12:55] MED LIST changes: +LIDOCAINE HCL100 ML URETHRAL
--- OUTSIDE RECORDS SUMMARY | 2024-12-23 13:02 | XMS ---
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 ELoni VISIT COUNT (12 MO.) 38 FELIX Cody 3 [facility]. Avis JaramilloJamar ([place]) TOTAL 41 NOTE: Visits indicate total known visits. ED/UCC VISIT TRACKING (12 MO.) 12/23/2024 12:56 [facility]IX Al [place] TYPE: Emergency COMPLAINT: - WEAKNESS 12/21/2024 10:13 [facility]IX Al [place] TYPE: Emergency COMPLAINT: - GROIN PAIN/BURN 12/07/2024 18:13 [facility] Al [place] TYPE: Emergency COMPLAINT: - MEDICATION REFILL/CHEST PAIN DIAGNOSES: - Bee allergy status - Encounter for issue of repeat prescription - Essential (primary) hypertension - Nicotine dependence, unspecified, uncomplicated - Other emt intermediate (current) drug therapy - Unspecified dementia, unspecified [...] - Gastro-esophageal reflux disease without esophagitis - [facility] (current) use of antithrombotics/antiplatelets - Nicotine dependence, [...] 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 - Nicotine dependence, unspecified, uncomplicated - Other specified disorders of penis - Other urethritis 11/12/2024 10:06 [facility]IX Al [place] TYPE: Emergency COMPLAINT: - WEAKNESS DIAGNOSES: - Bee allergy status - Essential (primary) hypertension - Gastro-esophageal reflux disease without esophagitis - Nicotine dependence, cigarettes, uncomplicated - Other emt intermediate (current) drug therapy - Other specified disorders of penis - Other urethritis - Unspecified atrial fibrillation - Unspecified osteoarthritis, unspecified site 11/10/2024 16:55 [facility]EL[facility] Al [place] TYPE: Emergency COMPLAINT: - BLOOD ISSUE DIAGNOSES: - Bee allergy status - Essential (primary) hypertension - Gastro-esophageal reflux disease without esophagitis - Nicotine dependence, unspecified, uncomplicated - Other emt intermediate (current) drug therapy - Other specified anemias - Unspecified dementia, unspecified severity, without behavioral disturbance, psychotic disturbance, mood disturbance, and anxiety 11/07/2024 14:37 [facility]ELIX Al [place] TYPE: Emergency COMPLAINT: - GENITAL PAIN 11/06/2024 11:44 FELIX lA OR TYPE: Emergency COMPLAINT: - WEAKNESS DIAGNOSES: - Bee allergy status - Essential (primary) hypertension - Gastro-esophageal reflux disease without esophagitis - [facility] (current) use of antibiotics - Nicotine dependence, [...] - Other insect allergy status - Other specified disorders of penis - [...] - Gastro-esophageal reflux disease without esophagitis - [facility] (current) use of antibiotics - Nicotine dependence, unspecified, uncomplicated - Other fatigue - Other group home (current) drug therapy - Unspecified atrial fibrillation [...] truck driver (current) use of 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 - Nicotine dependence, unspecified, uncomplicated - Other group home (current) drug therapy - Unspecified atrial fibrillation - Weakness 10/29/2024 19:59 FELIX Al [place] TYPE: Emergency COMPLAINT: - URINE PROBLEM DIAGNOSES: - Bee allergy status - Essential (primary) hypertension - Gastro-esophageal reflux disease without esophagitis - Nicotine dependence, unspecified, uncomplicated - Other disturbances of skin sensation - Other emt intermediate (current) drug therapy - Pelvic and perineal pain - Unspecified atrial fibrillation - Unspecified osteoarthritis, unspecified site - Urinary tract infection, site not specified 10/29/2024 12:03 FELIX Al [place] TYPE: Emergency COMPLAINT: - CATH PROBLEM DIAGNOSES: - Bee allergy status - Essential (primary) hypertension - Gastro-esophageal reflux disease without esophagitis - Localized edema - 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 - Nicotine dependence, unspecified, uncomplicated - Other difficulties with micturition - Other group home (current) drug therapy - Unspecified atrial fibrillation - Unspecified osteoarthritis, unspecified site 10/28/2024 19:26 FELIX Al [place] TYPE: Emergency COMPLAINT: - CATH ISSUES DIAGNOSES: - Bee allergy status - Essential (primary) hypertension - Gastro-esophageal reflux disease without esophagitis - 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 - 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 aspirin - Nicotine dependence, unspecified, uncomplicated - Other specified symptoms and signs involving the digestive system and abdomen 10/25/2024 10:54 FELIX Al [place] TYPE: Emergency COMPLAINT: - NOT FEELING WELL DIAGNOSES: - Bee allergy status - Essential (primary) hypertension - Gastro-esophageal reflux disease without esophagitis - [facility] (current) use of aspirin - Nicotine dependence, unspecified, uncomplicated - Other group home (current) drug therapy - Other specified disorders of penis 10/19/2024 15:10 FELIX Al [place] TYPE: Emergency COMPLAINT: - PENIS BURNING DIAGNOSES: - Adverse effect of other opioids, initial encounter - Bee allergy status - Dizziness and giddiness - Essential (primary) hypertension - Gastro-esophageal reflux disease without esophagitis - 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 - 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 aspirin - 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 oral hypoglycemic drugs - Nicotine dependence, unspecified, uncomplicated - Other specified disorders of penis - Unspecified atrial fibrillation - Unspecified dementia, unspecified severity, without behavioral disturbance, psychotic disturbance, mood disturbance, and anxiety Plus 21 More Visits INPATIENT VISIT TRACKING (12 MO.) 09/05/2024 07[facility]11 [facility] DIAGNOSES: - Aneurysm of the descending thoracic aorta, without rupture [email or web address]
[2024-12-23 13:57] LABS: BASOPHILS 0.1 % (0.2-1.2); EOSINOPHILS 0.1 % (0.8-7.0); LYMPHOCYTES 5.8 % (21.8-53.1); MCH 21.3 PG (25.7-32.2); MCHC 28.7 g/dL (32.3-36.5); MCV 74.4 fL (79.0-92.2); MONOCYTES 9.4 % (5.3-12.2); NEUTROPHILS 84.1 % (34.0-67.9); RBC 3.47 M/uL (4.63-6.08)
[2024-12-23] MEDS ORDERED: SODIUM CHLORIDE 0.9% 1,000 ML IV ONE (14:00)
[2024-12-23 14:06] LABS: ALT (SGPT) 10.0 U/L (14-59); AST (SGOT) 8.0 U/L (15-37); GLOMERULAR FILTRATION RATE,EST 93.0 mL/min (>60); PROTEIN, TOTAL 7.0 g/dL (6.4-8.2); UREA NITROGEN 22.0 mg/dL (7-18)
[2024-12-23 14:49] LABS: BLOOD/HGB, URINE SMALL (Negative); KETONE, URINE NEGATIVE (Negative); LEUK ESTERASE, URINE MODERATE (negative); NITRITE, URINE POSITIVE (negative)
[2024-12-23 15:01] LABS: CRYSTALS, URINE NONE SEEN (0-1+); EPITHELIAL CELLS, URINE SQUAMOUS 1+ /lpf (0-1+)
[2024-12-23 15:02] LABS: BACTERIA, URINE 3+ /hpf (negative); CASTS, URINE NONE SEEN \\lpf; REFLEX CULTURE, URINE Yes (No)
[2024-12-23] MEDS ORDERED: LIDOCAINE 2% VISCOUS 6 ML SYR TOP ONE (15:30)
[2024-12-23 16:03] LABS: BLOOD/HGB, URINE LARGE (Negative); KETONE, URINE NEGATIVE (Negative); LEUK ESTERASE, URINE MODERATE (negative); NITRITE, URINE POSITIVE (negative)
[2024-12-23 16:13] LABS: BACTERIA, URINE 3+ /hpf (negative); CASTS, URINE NONE SEEN \\lpf; CRYSTALS, URINE NONE SEEN (0-1+); EPITHELIAL CELLS, URINE 0 /lpf (0-1+); REFLEX CULTURE, URINE Yes (No)
[2024-12-23 17:34] VITALS: BP 136/53
--- NOTE | 2024-12-24 15:51 | NUR ---
PATIENT WAS SEEN YESTERDAY BY THIS NURSE IN DAY SURGERY AND GEC FORM SENT TO [place]. PRIOR TO SENDING, DISCUSSED HOSPICE AN OPTION WITH ANA, CAREGIVER. SHE STATED THERE IS NO WAY PATIENT WOULD AGREE TO HOSPICE. REFERRAL RECEIVED FROM DR. MUNOZ REQUESTING HOSPICE CONSULT. ATTEMPT TO CALL TAN, DAUGHTER, AND DISCUSS THIS WITH HER. SHE DID NOT ANSWER, MESSAGE LEFT WITH CALLBACK NUMBER TO CM OFFICE.
--- NOTE | 2024-12-25 08:21 | NUR ---
SPOKE WITH DAUGHTER, TAN. SHE STATES PATIENT WILL NOT AGREE TO HOSPICE, BECAUSE HE WOULD CONTINUE TO WANT TO BE SEEN AND TREATED FOR MEDICAL CONDITIONS IN THE ER. SHE IS HIS POA, HOWEVER, HE WILL NOT AGREE TO RESTAURANT LEAD MEDICAID REQUIREMENTS SO HE DOES NOT QUALIFY. STATES HER BROTHER IS ATTEMPTING TO OBTAIN GUARDIANSHIP. WILL NOT NEED ANY CM ASSISTANCE AT THIS TIME.
== END 2024-12-23 18:03 | disposition home or self-care (01) ==
LOC: ED 12:55
PROVIDERS: Emergency Medicine
DX: N39.0 Urinary tract infection, site not specified (principal); D64.9 Anemia, unspecified; I10 Essential (primary) hypertension; K21.9 Gastro-esophageal reflux disease without esophagitis; F03.90 Unspecified dementia, unspecified severity, without behavioral disturbance, psychotic disturbance, mood disturbance, and anxiety; I48.91 Unspecified atrial fibrillation; F17.200 Nicotine dependence, unspecified, uncomplicated; Z93.50 Unspecified cystostomy status; Z91.030 Bee allergy status; Z79.82 Long term (current) 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; Z79.899 Other long term (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
CPT/HCPCS: 36415; 51702; 80053; 81001; 85025; 87088; 96365; 99283-25; A4311; J0696; J7030

== ENCOUNTER 2025-01-27 10:18 | Emergency (ER) | payer OTHER, MEDICARE ==
[~2025-01-27] VITALS: Ht 185.4 cm; Wt 68.7 kg
--- OUTSIDE RECORDS SUMMARY | 2025-01-27 10:26 | XMS ---
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 E.D. VISIT COUNT (12 MO.) 37 FELIX Palacios [place] M.CJamar (Ashley Ramirez) TOTAL 38 NOTE: Visits indicate total known visits. ED/UCC VISIT TRACKING (12 MO.) 01/27/2025 10:20 FELIX Al [place] TYPE: Emergency COMPLAINT: - ABDOMINAL PAIN 12/23/2024 12:56 FELIX Al [place] TYPE: Emergency COMPLAINT: - WEAKNESS DIAGNOSES: - Anemia, unspecified - Bee allergy status - Essential (primary) hypertension - Gastro-esophageal reflux disease without esophagitis - longterm (current) 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 - Nicotine dependence, unspecified, uncomplicated - Other halfway (current) drug therapy - Transient alteration of awareness - Unspecified atrial fibrillation - Unspecified cystostomy status - Unspecified dementia, unspecified severity, without behavioral disturbance, psychotic disturbance, mood disturbance, and anxiety - Urinary tract infection, site not specified 12/21/2024 10:13 FELIX Al [place] TYPE: Emergency COMPLAINT: - GROIN PAIN/BURN DIAGNOSES: - Bee allergy status - Essential (primary) hypertension - Gastro-esophageal reflux disease without esophagitis - Nicotine dependence, unspecified, uncomplicated - Other halfway (current) drug therapy - Other specified disorders of penis - Unspecified atrial fibrillation 12/07/2024 18:13 FELIX Al OR TYPE: Emergency COMPLAINT: - MEDICATION REFILL/CHEST PAIN DIAGNOSES: - Bee allergy status - Encounter for issue of repeat prescription - Essential (primary) hypertension - Nicotine dependence, unspecified, uncomplicated - Other halfway (current) drug therapy - Unspecified dementia, unspecified severity, without behavioral disturbance, psychotic disturbance, mood disturbance, and anxiety 11/27/2024 22:52 [facility] [place] TYPE: Emergency COMPLAINT: - CATHETER PROBLEMS DIAGNOSES: - Bee allergy status - Essential (primary) hypertension - Nicotine dependence, unspecified, uncomplicated - Other urethritis - Unspecified atrial fibrillation - Unspecified osteoarthritis, unspecified site 11/19/2024 09:17 FELIX Diaz AndreinaJamar [place] TYPE: Emergency COMPLAINT: - GENITAL PROBLEM DIAGNOSES: - Bee allergy status - Essential (primary) hypertension - Gastro-esophageal reflux disease without esophagitis - longterm (current) use of antithrombotics/antiplatelets - Nicotine dependence, [...] manager long term care (current) use of antithrombotics/antiplatelets - Nicotine dependence, [...] agent (current) drug therapy - Other specified anemias [...] manager long term care (current) use of antibiotics - Nicotine dependence, unspecified, uncomplicated - Other specified disorders of penis - Unspecified atrial fibrillation - Unspecified osteoarthritis, unspecified site 11/04/2024 12:25 [facility] COMPLAINT: - WEAKNESS DIAGNOSES: - Allergy status to other drugs, medicaments and biological substances - Essential (primary) hypertension - Gastro-esophageal reflux disease without esophagitis - Nicotine dependence, unspecified, uncomplicated - Other insect allergy status - Other specified disorders of penis - Unspecified atrial fibrillation - Unspecified osteoarthritis, unspecified site 11/01/2024 10:50 [facility] [place] TYPE: Emergency COMPLAINT: - WEAKNESS DIAGNOSES: - Bee allergy status - Essential (primary) hypertension - Gastro-esophageal reflux disease without esophagitis - Nicotine dependence, unspecified, uncomplicated - Other disturbances of skin sensation - Unspecified atrial fibrillation - Unspecified dementia, unspecified severity, without behavioral disturbance, psychotic disturbance, mood disturbance, and anxiety - Unspecified osteoarthritis, unspecified site 10/31/2024 14:[address] [facility] [place] TYPE: Emergency COMPLAINT: - ABDOMINAL PAIN DIAGNOSES: - Bee allergy status - Dysuria - Essential (primary) hypertension - Gastro-esophageal reflux disease without esophagitis - Nicotine dependence, unspecified, uncomplicated - Unspecified atrial fibrillation - Unspecified dementia, unspecified severity, without behavioral disturbance, psychotic disturbance, mood disturbance, and anxiety - Unspecified osteoarthritis, unspecified site 10/30/2024 18:25 [facility] [place] TYPE: Emergency COMPLAINT: - WEAKNESS DIAGNOSES: - Bee allergy status - Essential (primary) hypertension - Gastro-esophageal reflux disease without esophagitis - longterm (current) use of antibiotics - Nicotine dependence, unspecified, uncomplicated - Other fatigue - Other halfway (current) drug therapy - Unspecified atrial fibrillation - Unspecified dementia, unspecified severity, without behavioral disturbance, psychotic disturbance, mood disturbance, and anxiety - Unspecified osteoarthritis, unspecified site - Weakness 10/30/2024 12:08 [place] [facility] [place] TYPE: Emergency COMPLAINT: - WEAKNESS DIAGNOSES: - Bee allergy status - Essential (primary) hypertension - Gastro-esophageal reflux disease without esophagitis - longterm (current) use of antibiotics - Nicotine dependence, unspecified, uncomplicated - Other halfway (current) drug therapy - Unspecified atrial fibrillation - Weakness 10/29/2024 19:59 FELIX Al [place] TYPE: Emergency COMPLAINT: - URINE PROBLEM DIAGNOSES: - Bee allergy status - Essential (primary) hypertension - Gastro-esophageal reflux disease without esophagitis - Nicotine dependence, unspecified, uncomplicated - Other disturbances of skin sensation - Other ferry terminal agent (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 - Pelvic and perineal pain - Unspecified atrial fibrillation - Unspecified osteoarthritis, unspecified site - Urinary tract infection, site not specified 10/29/2024 12:03 FELIX Al [place] TYPE: Emergency COMPLAINT: - CATH PROBLEM DIAGNOSES: - Bee allergy status - Essential (primary) hypertension - Gastro-esophageal reflux disease without esophagitis - Localized edema - longterm (current) use of antibiotics - Nicotine dependence, unspecified, uncomplicated - Other difficulties with micturition - Other halfway (current) drug therapy - Unspecified atrial fibrillation - Unspecified osteoarthritis, unspecified site 10/28/2024 19:26 FELIX Al OR TYPE: Emergency COMPLAINT: - CATH ISSUES DIAGNOSES: - Bee allergy status - Essential (primary) hypertension - Gastro-esophageal reflux disease without esophagitis - longterm (current) use of antithrombotics/antiplatelets - manager long term care (current) use of aspirin - Nicotine dependence, unspecified, uncomplicated - Other specified symptoms and signs involving the digestive system and abdomen 10/25/2024 10:54 FELIX Al OR TYPE: Emergency COMPLAINT: - NOT FEELING WELL DIAGNOSES: - Bee allergy status - Essential (primary) hypertension - Gastro-esophageal reflux disease without esophagitis - manager long term care (current) use of aspirin - Nicotine dependence, unspecified, uncomplicated - Other halfway (current) drug therapy - Other specified disorders of penis Plus 18 More Visits INPATIENT VISIT TRACKING (12 MO.) 09/05/2024 07:11 [facility] TYPE: Internal Medicine DIAGNOSES: - Aneurysm of the descending thoracic aorta, without rupture [email or web address]
[2025-01-27 11:03] LABS: BASOPHILS 0.4 % (0.2-1.2); EOSINOPHILS 1.1 % (0.8-7.0); LYMPHOCYTES 14.4 % (21.8-53.1); MCH 20.5 PG (25.7-32.2); MCHC 29.2 g/dL (32.3-36.5); MCV 70.1 fL (79.0-92.2); MONOCYTES 7.2 % (5.3-12.2); NEUTROPHILS 76.5 % (34.0-67.9); RBC 3.81 M/uL (4.63-6.08)
[2025-01-27 11:19] LABS: AST (SGOT) 9 U/L (15-37); GLOMERULAR FILTRATION RATE,EST 94 mL/min (>60); PROTEIN, TOTAL 6.5 g/dL (6.4-8.2); UREA NITROGEN 24 mg/dL (7-18)
[2025-01-27 11:20] LABS: ALT (SGPT) <6 U/L (14-59)
[2025-01-27] MEDS ORDERED: ERTAPENEM SODIUM 1 GM/10 ML VIAL IV ONE (12:45)
[2025-01-27] MEDS ORDERED: ERTAPENEM SODIUM 1 GM in SODIUM CHLORIDE 0.9% 50 ML IV ONE (13:00)
[2025-01-27 17:17] VITALS: BP 155/64
== END 2025-01-27 17:11 | disposition home or self-care (01) ==
LOC: ED 10:18
PROVIDERS: Emergency Medicine
DX: N39.0 Urinary tract infection, site not specified (principal); I10 Essential (primary) hypertension; K21.9 Gastro-esophageal reflux disease without esophagitis; I48.91 Unspecified atrial fibrillation; F17.200 Nicotine dependence, unspecified, uncomplicated; Z91.030 Bee allergy status; Z79.2 Long term (current) use of antibiotics; Z79.899 Other long term (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; Z79.82 Long term (current) 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
CPT/HCPCS: 36415; 36569; 80053; 85025; 96365; 99283-25; J1335